=== PATIENT | male | born 1960 | race American Indian/Alaskan Native ===

== ENCOUNTER 2020-12-09 15:15 | Emergency (ER) | payer SELFPAY ==
--- NOTE | 2020-12-09 17:29 | Emergency Department Report ---
ED Back Pain/Injury HPI - General Chief Complaint: Back Pain/Injury Stated Complaint: BACK PAIN Time Seen by Provider: 12/09/20 17:29 Source: patient Limitations: No Limitations - History of Present Illness Initial Comments: 59-year-old male with a past medical history of diabetes,and hypertension presents to the ER today with complaints of left lower back pain. Patient states that his back pain started about 4 days ago. . He states that the back pain has been constant and radiates down his left leg. He states that he does do some pushing at work but nothing out of the ordinary recently and he denies any other apparent injury. He states that the pain is worse with movement and ambulation. He denies any associated abdominal pain, chest pain, shortness of breath, bowel or bladder incontinence, urinary retention or constipation, lower extremity numbness or tingling. He states that he has not taken anything for the pain. Patient states that he had a lumbar fusion surgery, in 2007 and in 2013 or . He states that since his surgery he has not had any pain to his lower back. MD Complaint: back pain -: days(s) (4) - Related Data Previous Rx's Medication Instructions Recorded Last Taken Type Ibuprofen [Motrin] 600 mg PO Q8H PRN #30 tablet 12/09/20 Unknown Rx Tramadol HCl/Acetaminophen 1 each PO Q4HR #12 tablet 12/09/20 Unknown Rx [Ultracet Tablet] methOCARBAMOL [Robaxin TAB] 750 mg PO Q8H PRN #30 tablet 12/09/20 Unknown Rx Allergies Allergy/AdvReac Type Severity Reaction Status Date / Time No Known Allergies Allergy Unverified 12/09/20 17:30 ED Review of Systems ROS: Stated complaint: BACK PAIN Other details as noted in HPI Comment: All other systems reviewed and negative Constitutional: denies: chills, fever, malaise Eyes: denies: eye pain, eye discharge, vision change ENT: denies: ear pain, throat pain, dental pain, hearing loss, epistaxis, congestion Respiratory: denies: cough, shortness of breath, SOB with exertion, SOB at rest, wheezing Cardiovascular: denies: chest pain, palpitations, dyspnea on exertion, orthopnea, edema, syncope, paroxysmal nocturnal dyspnea Gastrointestinal: denies: abdominal pain, nausea, vomiting, diarrhea, constipation, hematemesis, melena, hematochezia Genitourinary: denies: urgency, dysuria, frequency, hematuria, discharge, testicular pain, testicular mass Musculoskeletal: back pain. denies: joint swelling, arthralgia, myalgia Skin: denies: rash, lesions, change in color, change in hair/nails, pruritus Neurological: denies: headache, weakness, numbness, paresthesias, confusion, abnormal gait, vertigo Psychiatric: denies: anxiety, depression, auditory hallucinations, visual hallucinations, homicidal thoughts, suicidal thoughts Hematological/Lymphatic: denies: easy bleeding, easy bruising ED Past Medical Hx - Medications Home Medications: Home Medications Medication Instructions Recorded Confirmed Last Taken Type Ibuprofen [Motrin] 600 mg PO Q8H PRN #30 tablet 12/09/20 Unknown Rx Tramadol HCl/Acetaminophen 1 each PO Q4HR #12 tablet 12/09/20 Unknown Rx [Ultracet Tablet] methOCARBAMOL [Robaxin TAB] 750 mg PO Q8H PRN #30 tablet 12/09/20 Unknown Rx ED Physical Exam - General Limitations: No Limitations General appearance: alert, in no apparent distress - Head Head exam: Present: atraumatic, normocephalic, normal inspection - Eye Eye exam: Present: normal appearance, PERRL, EOMI Pupils: Present: normal accommodation - Neck Neck exam: Present: normal inspection, full ROM - Respiratory Respiratory exam: Present: normal lung sounds bilaterally. Absent: respiratory distress - Cardiovascular Cardiovascular Exam: Present: regular rate, normal rhythm, normal heart sounds - GI/Abdominal GI/Abdominal exam: Present: soft. Absent: distended, tenderness, guarding - Extremities Exam Extremities exam: Present: normal inspection, full ROM. Absent: normal capillary refill, pedal edema, calf tenderness - Back Exam Back exam: Present: normal inspection, full ROM, paraspinal tenderness (Left lower lumbar area). Absent: CVA tenderness (R), CVA tenderness (L), vertebral tenderness - Neurological Exam Neurological exam: Present: alert, oriented X3, CN II-XII intact, normal gait, reflexes normal. Absent: motor sensory deficit - Psychiatric Psychiatric exam: Present: normal affect, normal mood - Skin Skin exam: Present: intact ED Course Vital Signs 12/09/20 17:22 Temperature 99.2 F Pulse Rate 101 H Respiratory 20 Rate Blood Pressure 150/106 O2 Sat by Pulse 98 Oximetry ED Medical Decision Making - Medical Decision Making The patient presented with low back pain. The patient is resting comfortably and, is alert, talkative, interactive and in no distress. The patient is neurologically intact and is ambulatory in the ED. tThe patient has no fever, no bowel or bladder incontinence, no saddle anesthesia and is otherwise alert and well-appearing. Urinalysis shows nothing acute. His history, physical examination and diagnostic testing does not suggest the presence of acute spinal epidural abscess, acute epidural bleed, cauda equina syndrome, abdominal/thoracic aortic aneurysm, aortic dissection or other acute process requiring further testing, treatment or consultation in the emergency department. Patient blood pressure noted to be elevated at triage but he admits that he has not taken his blood pressure medication today and currently has no symptoms related to hypertension. Discussed urinalysis results, suspected diagnosis and treatment plan with patient. Patient given referral to local orthospine specialist as well as primary care doctor for continued care of his back pain as he may need outpatient MRI. He expressed understanding of instructions and agree with plan. The patient condition is stable and appropriate for discharge. The patient will pursue further outpatient evaluation with the primary care physician or other designated or consulting physician as indicated in the discharge instructions. Critical care attestation.: If time is entered above; I have spent that time in minutes in the direct care of this critically ill patient, excluding procedure time. ED Disposition Clinical Impression: Low back pain, Lumbar radiculopathy Disposition: DC- TO HOME OR SELFCARE Is pt being admited?: No Does the pt Need Aspirin: No Condition: Stable Instructions: Radicular Pain, Acute Back Pain, Adult Additional Instructions: I recommend that you take the pain medications as prescribed. I recommend follow up wth PCP and also solar energy sales specialist listed on your discharge instructions. Return to ED if worse. Prescriptions: Ibuprofen [Motrin] 600 mg PO Q8H PRN #30 tablet PRN Reason: Pain methOCARBAMOL [Robaxin TAB] 750 mg PO Q8H PRN #30 tablet PRN Reason: Spasms Tramadol HCl/Acetaminophen [Ultracet Tablet] 1 each PO Q4HR #12 tablet Referrals: CLARISSA KHAN MD [Primary Care Provider] - 3-5 Days RITA CANELA MD [Staff Physician] - 3-5 Days [facility] [Provider Group] - 3-5 Days ([facility]th[facility]ine Specialist They have [place] location ) Forms: Work/School Release Form(ED) Time of Disposition: 18:42
[2020-12-09 17:58] LABS: Bilirubin,Urine NEG (Negative); Blood,Urine NEG (Negative); Color,Urine Yellow (Yellow); Mucus,Urine FEW /HPF; Protein,Urine <15 mg/dL mg/dL (Negative); Urobilinogen,Urine < 2.0 mg/dL (<2.0); WBC,Urine < 1.0 /HPF (0.0-6.0)
[2020-12-09 18:01] VITALS: BP 150/106
== END 2020-12-09 19:05 | disposition home or self-care (01) ==
LOC: ED 15:15
DX: M54.16 Radiculopathy, lumbar region (principal); Z79.899 Other long term (current) drug therapy
CPT/HCPCS: 81001; 99283

== ENCOUNTER 2021-03-29 21:59 | Inpatient (IN) | payer OTHER ==
--- NOTE | 2021-03-30 | Event Note ---
ED Screening Note Date of service: 03/29/21 Time: 23:58 ED Screening Note: Patient is a 60-year-old -L[place] male with a history of [id number] diabetes and diabetic neuropathy who presents to the ED with complaint of acute onset painful swollen ulcerated wound on distal right great toe with purulent discharge for the last 3 weeks. Patient states that he did not realize that he had an ulcer on the plantar aspect of the right great toe but so ulceration and try to clean it at home and remove skin but in the last 1 week the swelling, the pain and the redness of the right great toe and right foot have worsened. Patient states that he is unable to bear weight on the right foot because of persistent pain. Patient also complains of chills, nausea and generalized weakness. Patient denies dizziness, traumatic injury, fever, vomiting, numbness and tingling or weakness of lower extremities bilaterally, fall, low back pain, chest pain or shortness of breath. This initial assessment/diagnostic orders/clinical plan/treatment(s) is/are subject to change based on patients health status, clinical progression and re- assessment by fellow clinical providers in the ED. Further treatment and workup at subsequent clinical providers discretion. Patient/guardian urged not to elope from the ED as their condition may be serious if not clinically assessed and managed. Initial orders include: CBC, CMP, lactic acid, blood culture, right foot x-ray
--- NOTE | 2021-03-30 00:27 | XRay Report ---
Right foot 3 views INDICATION: Cellulitis FINDINGS: There is diffuse soft tissue swelling within the great toe. Degenerative changes seen in th e MTP joint. There may be some soft tissue gas is now with. No definite destructive changes seen. IMPRESSION: Diffuse soft tissue swelling in the big toe. No bony destructive change is seen however follow-up x-r ay or MRI if there is high clinical concern Signer Name: Anthony Polanco MD Signed: 03/30/2021 12:22 AM Workstation Name: [email or web address]
[2021-03-30 00:45] LABS: Basophils # (Auto) 0.1 K/mm3 (0.0-0.1); Basophils % (Auto) 0.9 % (0.0-1.8); Eosinophils # (Auto) 0.1 K/mm3 (0.0-0.4); Eosinophils % (Auto) 0.9 % (0.0-4.3); Hematocrit 37.3 % (35.5-45.6); Hemoglobin 12.8 gm/dl (11.8-15.2); Lymphocytes # (Auto) 0.8 K/mm3 (1.2-5.4); Mean Corpuscular HGB Conc 34 % (32-34); Mean Corpuscular Volume 71 fl (84-94); Monocytes # (Auto) 0.6 K/mm3 (0.0-0.8); Monocytes % (Auto) 8.2 % (0.0-7.3); Platelet Count 170 K/mm3 (140-440); Red Blood Count 5.26 M/mm3 (3.65-5.03); Red Cell Distribution Width 13.4 % (13.2-15.2)
[2021-03-30 00:47] LABS: Alanine Aminotransferase 32 units/L (7-56); BUN/Creatinine Ratio 12; Blood Urea Nitrogen 12 mg/dL (9-20); Calcium 9.2 mg/dL (8.4-10.2); Hemolysis Index 4
[2021-03-30] MEDS ORDERED: SODIUM CHLORIDE 0.9% 1000 ML 1,000 ML IV ONE ×2 (02:31→08:42)
[2021-03-30] MEDS ORDERED: CLINDAMYCIN 600 MG/50 mL 600 MG/50 ML BAG IV ONE (02:31)
[2021-03-30] MEDS ORDERED: MORPHINE 4 MG/1 ML INJ IV ONE (02:31)
[2021-03-30] MEDS ORDERED: ONDANSETRON 4 MG/2 ML INJ IV ONE (02:31)
--- NOTE | 2021-03-30 02:40 | Emergency Department Report ---
ED Extremity Problem HPI - General Chief complaint: Extremity Injury, Lower Stated complaint: TOE INFECTION Time Seen by Provider: 03/30/21 02:25 Source: patient Mode of arrival: Ambulatory Limitations: No Limitations - History of Present Illness Initial comments: Patient is a 69-year-old F [place] male who is presenting with 3 weeks of progressively worsening right great toe pain. Has some swelling and now some bleeding from the webspace. States he was unaware that the ulcer has started to form. States his blood glucose levels have been running slightly high as well. Denies nausea vomiting diarrhea fevers cough cold or congestion. Severity scale (0 -10): 10 - Related Data Previous Rx's Medication Instructions Recorded Last Taken Type Ibuprofen [Motrin] 600 mg PO Q8H PRN #30 tablet 12/09/20 Unknown Rx Tramadol HCl/Acetaminophen 1 each PO Q4HR #12 tablet 12/09/20 Unknown Rx [Ultracet Tablet] methOCARBAMOL [Robaxin TAB] 750 mg PO Q8H PRN #30 tablet 12/09/20 Unknown Rx Allergies Allergy/AdvReac Type Severity Reaction Status Date / Time No Known Allergies Allergy Verified 03/30/21 02:33 ED Review of Systems ROS: Stated complaint: TOE INFECTION Other details as noted in HPI Comment: All other systems reviewed and negative ED Past Medical Hx - Past Medical History Previous Medical History?: Yes Additional medical history: Back pain with back surgery - Surgical History Past Surgical History?: Yes Additional Surgical History: Back - Social History Smoking Status: Never Smoker Substance Use Type: None - Medications Home Medications: Home Medications Medication Instructions Recorded Confirmed Last Taken Type Ibuprofen [Motrin] 600 mg PO Q8H PRN #30 tablet 12/09/20 Unknown Rx Tramadol HCl/Acetaminophen 1 each PO Q4HR #12 tablet 12/09/20 Unknown Rx [Ultracet Tablet] methOCARBAMOL [Robaxin TAB] 750 mg PO Q8H PRN #30 tablet 12/09/20 Unknown Rx ED Physical Exam - General Limitations: No Limitations General appearance: alert, in no apparent distress - Head Head exam: Present: atraumatic, normocephalic - Eye Eye exam: Present: normal appearance - ENT ENT exam: Present: mucous membranes moist - Neck Neck exam: Present: normal inspection - Respiratory Respiratory exam: Present: normal lung sounds bilaterally. Absent: respiratory distress - Cardiovascular Cardiovascular Exam: Present: regular rate, normal rhythm. Absent: systolic murmur, diastolic murmur, rubs, gallop - GI/Abdominal GI/Abdominal exam: Present: soft, normal bowel sounds. Absent: distended, tenderness, guarding, rebound - Rectal Rectal exam: Present: deferred - Extremities Exam Extremities exam: Present: normal inspection - Expanded Lower Extremity Exam Right Foot/Toe exam: Present: tenderness, swelling (Right great toe shows a significant amount of swelling and bogginess. Yellowing of the skin. Some dried blood in the webspace.), erythema. Absent: normal inspection - Back Exam Back exam: Present: normal inspection - Neurological Exam Neurological exam: Present: alert, oriented X3 - Psychiatric Psychiatric exam: Present: normal affect, normal mood - Skin Skin exam: Present: warm, dry, intact, normal color. Absent: rash ED Course Vital Signs 03/29/21 23:41 Temperature 99.4 F Pulse Rate 86 Respiratory 16 Rate Blood Pressure 154/86 [Right] O2 Sat by Pulse 98 Oximetry ED Medical Decision Making - Lab Data Result diagrams: 03/29/21 23:59 03/29/21 23:59 Lab Results 03/29/21 03/29/21 03/29/21 Range/Units 23:59 23:59 23:59 WBC 7.6 (4.5-11.0) K/mm3 RBC 5.26 H (3.65-5.03) M/mm3 Hgb 12.8 (11.8-15.2) gm/dl Hct 37.3 (35.5-45.6) % MCV 71 L (84-94) fl MCH 24 L (28-32) pg MCHC 34 (32-34) % RDW 13.4 (13.2-15.2) % Plt Count 170 (140-440) K/mm3 Lymph % (Auto) 10.0 L (13.4-35.0) % [place] % (Auto) 8.2 H (0.0-7.3) % Eos % (Auto) 0.9 (0.0-4.3) % Baso % (Auto) 0.9 (0.0-1.8) % Lymph # (Auto) 0.8 L (1.2-5.4) K/mm3 [place] # (Auto) 0.6 (0.0-0.8) K/mm3 Eos # (Auto) 0.1 (0.0-0.4) K/mm3 Baso # (Auto) 0.1 (0.0-0.1) K/mm3 Seg Neutrophils % 80.0 H (40.0-70.0) % Seg Neutrophils # 6.1 (1.8-7.7) K/mm3 Sodium 132 L (137-145) mmol/L Potassium 3.9 (3.6-5.0) mmol/L Chloride 94.6 L (98-107) mmol/L Carbon Dioxide 25 (22-30) mmol/L Anion Gap 16 mmol/L BUN 12 (9-20) mg/dL Creatinine 1.0 (0.8-1.3) mg/dL Estimated GFR > 60 ml/min BUN/Creatinine Ratio 12 % Glucose 345 H (75-100) mg/dL Lactic Acid 1.50 (0.7-2.0) mmol/L Calcium 9.2 (8.4-10.2) mg/dL Total Bilirubin 1.30 H (0.1-1.2) mg/dL AST 40 (5-40) units/L ALT 32 (7-56) units/L Alkaline Phosphatase 198 H (35-129) units/L Total Protein 7.8 (6.3-8.2) g/dL Albumin 4.0 (3.9-5) g/dL Albumin/Globulin Ratio 1.1 % - Radiology Data [facility] [address] [place] [address] XRay Report Signed Patient: REGINO NDIAYE MR#: [id number] : 1960 Acct:[id number] Age/Sex: 60 / M ADM Date: 03/29/21 Loc: ED Attending Dr: Ordering Physician: OSCAR DAILEY Date of Service: 03/29/21 Procedure(s): XR foot 3+V RT Accession Number(s): [id number] cc: OSCAR DAILEY Fluoro Time In Minutes: Right foot 3 views INDICATION: Cellulitis FINDINGS: There is diffuse soft tissue swelling within the great toe. Degenerative changes seen in the MTP joint. There may be some soft tissue gas is now with. No definite destructive changes seen. IMPRESSION: Diffuse soft tissue swelling in the big toe. No bony destructive change is seen however follow-up x-ray or MRI if there is high clinical concern Signer Name: Anthony Polanco MD Signed: 03/30/2021 12:22 AM Workstation Name: [id number] - Medical Decision Making Patient is a 60-year-old F [place] male who is presenting with swelling to the right great toe. Was told appears to be in the early stages of gangrene. Placement patient's glucose is also elevated but not in DKA. Patient started on IV fluids as well as clindamycin and Vanco will be admitted to the hospitalist service. The patient there is a chance that he may need a toe amputation. Critical care attestation.: If time is entered above; I have spent that time in minutes in the direct care of this critically ill patient, excluding procedure time. ED Disposition Clinical Impression: Cellulitis of toe of right foot, Hyperglycemia Disposition: ADMITTED INPATIENT Is pt being admited?: Yes Does the pt Need Aspirin: No Condition: Stable Time of Disposition: 03:02
[2021-03-30] MEDS ORDERED: VANCOMYCIN 1,750 MG in SODIUM CHLORIDE 0.9% 500 ML 500 ML IV ONE (02:45)
[2021-03-30] MEDS ORDERED: VANCOMYCIN PHARMACY TO DOSE IV SCH (03:00)
[2021-03-30] MEDS ORDERED: DEXTROSE 50% IN WATER (25GM) 50 ML SYRINGE IV PRN (05:00)
[2021-03-30] MEDS ORDERED: ALBUTEROL 2.5 MG/3 ML NEBU IH PRN (05:00)
[2021-03-30] MEDS ORDERED: IBUPROFEN 600 MG TAB PO PRN (05:03)
--- NOTE | 2021-03-30 05:09 | History and Physical Report ---
History of Present Illness Date of examination: 03/30/21 Date of admission: 03/30/21 Chief complaint: Right great toe infection cellulitis/ History of present illness: 60 years old male with history [id number] diabetes and diabetic neuropathy who presents to the ED with complaint of acute onset painful swollen ulcerated wound on distal right great toe with purulent discharge for the last 3 weeks..patient complained of some swelling and now some bleeding from the webspace. States he was unaware that the ulcer has started to form. States his blood glucose levels have been running slightly high as well. Denies nausea vomiting diarrhea fevers cough cold or congestion. In the emergency room patient is found to have cellulitis of the right great t oe. Also patient blood glucose is 345. Will consult vascular surgeon for evaluation Med rec is done. Advance discharge process is initiated Past History Past Medical History: diabetes, other (Diabetic neuropathy) Medications and Allergies Allergies Allergy/AdvReac Type Severity Reaction Status Date / Time No Known Allergies Allergy Verified 03/30/21 02:33 Home Medications Medication Instructions Recorded Confirmed Last Taken Type Ibuprofen [Motrin] 600 mg PO Q8H PRN #30 tablet 12/09/20 Unknown Rx Tramadol HCl/Acetaminophen 1 each PO Q4HR #12 tablet 12/09/20 Unknown Rx [Ultracet Tablet] methOCARBAMOL [Robaxin TAB] 750 mg PO Q8H PRN #30 tablet 12/09/20 Unknown Rx Active Meds: Active Medications Acetaminophen (Acetaminophen 325 Mg Tab) 650 mg PO Q4H PRN PRN Reason: Pain MILD(1-3)/Fever >100.5/LUNA Albuterol (Albuterol 2.5 Mg/3 Ml Nebu) 2.5 mg IH Q4HRT PRN PRN Reason: Shortness Of Breath Dextrose (Dextrose 50% In Water (25gm) 50 Ml Syringe) 50 ml IV Q30MIN PRN; Protocol PRN Reason: Hypoglycemia Famotidine (Famotidine 20 Mg Tab) 20 mg PO BID SIRENA Heparin Sodium (Porcine) (Heparin 5,000 Unit/1 Ml Vial) 5,000 unit SUB-Q Q8HR SIRENA Hydromorphone HCl (Hydromorphone 1 Mg/1 Ml Inj) 0.5 mg IV Q3H PRN PRN Reason: Pain , Severe (7-10) Piperacillin Sod/Tazobactam Sod (Zosyn/Ns 4.5gm/100ml) 4.5 gm in 100 mls @ 200 mls/hr IV Q8H SIRENA; Protocol Vancomycin HCl (Vancomycin/Ns 1 Gm/250 Ml) 1 gm in 250 mls @ 166.667 mls/hr IV Q12H SIRENA; Protocol Ibuprofen (Ibuprofen 600 Mg Tab) 600 mg PO Q8H PRN PRN Reason: PAIN Insulin Human Lispro (Insulin Lispro 100 Unit/Ml) 0 unit SUB-Q ACHS SIRENA; Protocol Methocarbamol (Methocarbamol 750 Mg Tab) 750 mg PO Q8H PRN PRN Reason: Spasms Ondansetron HCl (Ondansetron 4 Mg/2 Ml Inj) 4 mg IV Q8H PRN PRN Reason: Nausea And Vomiting Oxycodone/Acetaminophen (Oxycodone /Acetaminophen 5-325mg Tab) 1 tab PO Q6H PRN PRN Reason: Pain, Moderate (4-6) Sodium Chloride (Sodium Chloride 0.9% 10 Ml Flush Syringe) 10 ml IV BID SIRENA Sodium Chloride (Sodium Chloride 0.9% 10 Ml Flush Syringe) 10 ml IV PRN PRN PRN Reason: LINE FLUSH Review of Systems All systems: negative Musculoskeletal: other (Right great toe and right foot ulcer cellulitis) Exam - Constitutional Vitals: Temp Pulse Resp BP Pulse Ox 99.4 F 86 16 154/86 98 03/29/21 23:41 03/29/21 23:41 03/29/21 23:41 03/29/21 23:41 03/29/21 23:41 General appearance: Present: no acute distress, well-nourished - EENT Eyes: Present: PERRL ENT: hearing intact, clear oral mucosa - Neck Neck: Present: supple, normal ROM - Respiratory Respiratory effort: normal Respiratory: bilateral: CTA - Cardiovascular Heart Sounds: Present: S1 & S2. Absent: rub, click - Extremities Extremities: pulses symmetrical, No edema Peripheral Pulses: within normal limits - Abdominal General gastrointestinal: Present: soft, non-tender, non-distended, normal bowel sounds Male genitourinary: Present: normal - Integumentary Integumentary: Present: clear, warm, dry - Musculoskeletal Musculoskeletal: strength equal bilaterally, other (Cellulitis onset of the right foot and right great toe) - Psychiatric Psychiatric: appropriate mood/affect, intact judgment & insight - Neurologic Neurologic: CNII-XII intact, moves all extremities Results - Labs CBC & Chem 7: 03/29/21 23:59 03/29/21 23:59 Labs: Laboratory Last Values WBC 7.6 K/mm3 (4.5-11.0) 03/29/21 23:59 RBC 5.26 M/mm3 (3.65-5.03) H 03/29/21 23:59 Hgb 12.8 gm/dl (11.8-15.2) 03/29/21 23:59 Hct 37.3 % (35.5-45.6) 03/29/21 23:59 MCV 71 fl (84-94) L 03/29/21 23:59 MCH 24 pg (28-32) L 03/29/21 23:59 MCHC 34 % (32-34) 03/29/21 23:59 RDW 13.4 % (13.2-15.2) 03/29/21 23:59 Plt Count 170 K/mm3 (140-440) 03/29/21 23:59 Lymph % (Auto) 10.0 % (13.4-35.0) L 03/29/21 23:59 [place] % (Auto) 8.2 % (0.0-7.3) H 03/29/21 23:59 Eos % (Auto) 0.9 % (0.0-4.3) 03/29/21 23:59 Baso % (Auto) 0.9 % (0.0-1.8) 03/29/21 23:59 Lymph # (Auto) 0.8 K/mm3 (1.2-5.4) L 03/29/21 23:59 [place] # (Auto) 0.6 K/mm3 (0.0-0.8) 03/29/21 23:59 Eos # (Auto) 0.1 K/mm3 (0.0-0.4) 03/29/21 23:59 Baso # (Auto) 0.1 K/mm3 (0.0-0.1) 03/29/21 23:59 Seg Neutrophils % 80.0 % (40.0-70.0) H 03/29/21 23:59 Seg Neutrophils # 6.1 K/mm3 (1.8-7.7) 03/29/21 23:59 Sodium 132 mmol/L (137-145) L 03/29/21 23:59 Potassium 3.9 mmol/L (3.6-5.0) 03/29/21 23:59 Chloride 94.6 mmol/L (98-107) L 03/29/21 23:59 Carbon Dioxide 25 mmol/L (22-30) 03/29/21 23:59 Anion Gap 16 mmol/L 03/29/21 23:59 BUN 12 mg/dL (9-20) 03/29/21 23:59 Creatinine 1.0 mg/dL (0.8-1.3) 03/29/21 23:59 Estimated GFR > 60 ml/min 03/29/21 23:59 BUN/Creatinine Ratio 12 % 03/29/21 23:59 Glucose 345 mg/dL (75-100) H 03/29/21 23:59 Lactic Acid 1.50 mmol/L (0.7-2.0) 03/29/21 23:59 Calcium 9.2 mg/dL (8.4-10.2) 03/29/21 23:59 Total Bilirubin 1.30 mg/dL (0.1-1.2) H 03/29/21 23:59 AST 40 units/L (5-40) 03/29/21 23:59 ALT 32 units/L (7-56) 03/29/21 23:59 Alkaline Phosphatase 198 units/L (35-129) H 03/29/21 23:59 Total Protein 7.8 g/dL (6.3-8.2) 03/29/21 23:59 Albumin 4.0 g/dL (3.9-5) 03/29/21 23:59 Albumin/Globulin Ratio 1.1 % 03/29/21 23:59 Assessment and Plan VTE prophylaxis?: Chemical Plan of care discussed with patient/family: Yes - Patient Problems (1) Cellulitis of toe of right foot Status: Acute Plan to address problem: Admit the patient to the medical floor. Put the patient on diabetic diet. Vancomycin 1 g IV every 12 hours. Zosyn 4.5 g IV every 8 hours. Reconsult the wound care evaluation. We do the blood culture wound culture. We also consult vascular surgery Dr. Aguila to see the patient for further evaluation and treatment as per ER doctor recommendation (2) Diabetes Status: Acute Plan to address problem: We will put the patient on 1800 kcal ADA diet. Humalog sliding scale high dose with Accu-Chek before meals and at bedtime. Diabetic education (3) Hyperglycemia Status: Acute Plan to address problem: We will put the patient on 1800 kcal ADA diet. Humalog sliding scale high dose with Accu-Chek before meals and at bedtime. Diabetic education (4) DVT prophylaxis Status: Acute Plan to address problem: Heparin 5000 units subcu every 8 hours for DVT prophylaxis. Pepcid 20 mg p.o. twice daily for GI prophylaxis. Patient is a full code
[2021-03-30] MEDS ORDERED: VANCOMYCIN/NS 1 GM/250 ML 1 GM/250 ML BAG IV SCH (06:00)
[2021-03-30] MEDS ORDERED: PIPERACIL/TAZOBACTA 4.5/NS 100 4.5 GM/100 ML VIAL IV SCH (06:00)
[2021-03-30] MEDS: AMPICILLIN/SULBACTA 3GM/100ML 3 GM/100 ML BAG IV SCH ×4 (07:45→23:36)
[2021-03-30] MEDS: HEPARIN 5,000 UNIT/1 ML VIAL SUB-Q SCH ×4 (07:58→23:37)
[2021-03-30] MEDS: INSULIN LISPRO 100 UNIT/ML SUB-Q SCH ×4 (08:23→17:00)
[2021-03-30] MEDS: FAMOTIDINE 20 MG TAB PO SCH ×2 (10:00→23:43)
--- NOTE | 2021-03-30 12:00 | Event Note ---
Date: 03/30/21 Patient with cellulitis, ulcer right big toe. He is also diabetic. I have seen and examined him. he takes Insulin at home. I discussed with Dr. Aguila. He recommends consult Dr. Villegas, Surgeon.
--- NOTE | 2021-03-30 12:39 | Consultation ---
History of Present Illness - Reason for Consult Consult date: 03/30/21 Right first toe infection - History of Present Illness Patient with a history of insulin-dependent diabetes who presents with a 3-week history of worsening pain to his right first toe. The patient is developed ulceration and has been treating it at home with bandaging however, the first toe continued to swell. Additionally, the patient has dusky discoloration of toes 2 through 5 on the right foot as well. This extends proximally to the metatarsal head for all 5 toes. I the patient's foot is warm however a componen t of this is likely secondary to infection. His pulses are faintly palpable. The patient does have edema of his foot. Contralateral foot is cooler with more strongly palpable pulses. Patient resting comfortably in bed. Not complaining of any pain or drainage at this time. Past History Past Medical History: diabetes, other (Diabetic neuropathy) Medications and Allergies Allergies Allergy/AdvReac Type Severity Reaction Status Date / Time No Known Allergies Allergy Verified 03/30/21 02:33 Home Medications Medication Instructions Recorded Confirmed Last Taken Type Ibuprofen [Motrin] 600 mg PO Q8H PRN #30 tablet 12/09/20 Unknown Rx Tramadol HCl/Acetaminophen 1 each PO Q4HR #12 tablet 12/09/20 Unknown Rx [Ultracet Tablet] methOCARBAMOL [Robaxin TAB] 750 mg PO Q8H PRN #30 tablet 12/09/20 Unknown Rx Active Meds: Active Medications Acetaminophen (Acetaminophen 325 Mg Tab) 650 mg PO Q4H PRN PRN Reason: Pain MILD(1-3)/Fever >100.5/LUNA Albuterol (Albuterol 2.5 Mg/3 Ml Nebu) 2.5 mg IH Q4HRT PRN PRN Reason: Shortness Of Breath Dextrose (Dextrose 50% In Water (25gm) 50 Ml Syringe) 50 ml IV Q30MIN PRN; Protocol PRN Reason: Hypoglycemia Famotidine (Famotidine 20 Mg Tab) 20 mg PO BID [facility] Last Admin: 03/30/21 10:00 Dose: 20 mg Documented by: Heparin Sodium (Porcine) (Heparin 5,000 Unit/1 Ml Vial) 5,000 unit SUB-Q Q8HR [facility] Last Admin: 03/30/21 07:58 Dose: Not Given Documented by: Hydromorphone HCl (Hydromorphone 1 Mg/1 Ml Inj) 0.5 mg IV Q3H PRN PRN Reason: Pain , Severe (7-10) Vancomycin HCl 1,500 mg/ (Sodium Chloride) 530 mls @ 333.333 mls/hr IV Q12H [facility] Ampicillin Sodium/Sulbactam Sodium (Unasyn/Ns 3 Gm/100 Ml) 3 gm in 100 mls @ 200 mls/hr IV Q6H [facility]; Protocol Last Admin: 03/30/21 07:45 Dose: 200 mls/hr Documented by: Ibuprofen (Ibuprofen 600 Mg Tab) 600 mg PO Q8H PRN PRN Reason: Pain, Mild (1-3) Insulin Human Lispro (Insulin Lispro 100 Unit/Ml) 0 unit SUB-Q ACHS [facility]; Protocol Last Admin: 03/30/21 11:15 Dose: Not Given Documented by: Methocarbamol (Methocarbamol 750 Mg Tab) 750 mg PO Q8H PRN PRN Reason: Spasms Ondansetron HCl (Ondansetron 4 Mg/2 Ml Inj) 4 mg IV Q8H PRN PRN Reason: Nausea And Vomiting Oxycodone/Acetaminophen (Oxycodone /Acetaminophen 5-325mg Tab) 1 tab PO Q6H PRN PRN Reason: Pain, Moderate (4-6) Sodium Chloride (Sodium Chloride 0.9% 10 Ml Flush Syringe) 10 ml IV BID [facility] Last Admin: 03/30/21 11:14 Dose: Not Given Documented by: Sodium Chloride (Sodium Chloride 0.9% 10 Ml Flush Syringe) 10 ml IV PRN PRN PRN Reason: LINE FLUSH Review of Systems All systems: negative Exam - Constitutional Vitals: Temp Pulse Resp BP Pulse Ox 99.4 F 88 15 121/65 97 03/30/21 08:11 03/30/21 11:45 03/30/21 11:45 03/30/21 11:45 03/30/21 11:45 General appearance: Present: no acute distress - EENT Eyes: Present: EOM intact ENT: hearing intact - Neck Neck: Present: supple, normal ROM - Respiratory Respiratory effort: normal - Extremities Extremities: abnormal Extremity abnormal: edema (Per HPI) Peripheral Pulses: abnormal - Abdominal General gastrointestinal: Present: deferred Male genitourinary: Present: deferred - Rectal Rectal Exam: deferred - Psychiatric Psychiatric: appropriate mood/affect, cooperative Results - Labs CBC & Chem 7: 03/29/21 23:59 03/29/21 23:59 Labs: Abnormal lab results 03/29/21 03/29/21 03/30/21 Range/Units 23:59 23:59 08:17 RBC 5.26 H (3.65-5.03) M/mm3 MCV 71 L (84-94) fl MCH 24 L (28-32) pg Lymph % (Auto) 10.0 L (13.4-35.0) % Eagle % (Auto) 8.2 H (0.0-7.3) % Lymph # (Auto) 0.8 L (1.2-5.4) K/mm3 Seg Neutrophils % 80.0 H (40.0-70.0) % Sodium 132 L (137-145) mmol/L Chloride 94.6 L (98-107) mmol/L Glucose 345 H (75-100) mg/dL POC Glucose 321 H (70-105) mg/dL Total Bilirubin 1.30 H (0.1-1.2) mg/dL Alkaline Phosphatase 198 H (35-129) units/L 03/30/21 Range/Units 10:00 RBC (3.65-5.03) M/mm3 MCV (84-94) fl MCH (28-32) pg Lymph % (Auto) (13.4-35.0) % [place] % (Auto) (0.0-7.3) % Lymph # (Auto) (1.2-5.4) K/mm3 Seg Neutrophils % (40.0-70.0) % Sodium (137-145) mmol/L Chloride (98-107) mmol/L Glucose (75-100) mg/dL POC Glucose 221 H (70-105) mg/dL Total Bilirubin (0.1-1.2) mg/dL Alkaline Phosphatase (35-129) units/L Assessment and Plan Patient will need antibiotic therapy and may require infectious disease consult for long-term therapy. I the patient will need Dr. Villegas consulted for wound care and likely toe amputation. I the patient has a history of bleeding from this area as well as palpable pedal pulses. The pulses are somewhat fainter than the contralateral side although a component of this is likely secondary to the edema from infection. We will confirm that the patient has adequate arterial inflow to heal surgical intervention with arterial duplex.
--- NOTE | 2021-03-30 14:51 | Event Note ---
Date: 03/30/[address] Villegas. I am external relations manager for [employer] today. Went to see patient but he went for imaging studies and is not in room. No admission photos [facility] the [facility]. Will see tomorrow. If amputation is recommended, will discuss with Dr. Villegas when he returns on Thursday.
--- NOTE | 2021-03-30 16:26 | Vascular Lab Report ---
DUPLEX DOPPLER LOWER EXTREMITY ARTERIAL, BILATERAL INDICATION / CLINICAL INFORMATION: Right first toe gangrene. TECHNIQUE: Arterial duplex examination of both lower extremities performed using B-mode, color flow and spectral Doppler assessment. FINDINGS: RIGHT: - Atherosclerotic Plaque: Moderate. - Elevated Velocity (>200 cm/s): None. - Abnormal Waveform: None. Normal triphasic waveforms seen throughout the right lower extremity. LEFT: - Atherosclerotic Plaque: Moderate. - Elevated Velocity (>200 cm/s): Increased in the left dorsalis pedis artery, measuring 462.7 cm. - Abnormal Waveform: Dampened monophasic waveform within the left dorsalis pedis artery. There is hig h-grade stenosis within the left dorsalis pedis artery. Otherwise, normal triphasic waveforms are see n. ADDITIONAL FINDINGS: None. IMPRESSION: 1. 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 Otherwise, no significant stenosis in the l eft lower extremity. 2. No significant stenosis of the right lower extremity arterial system. Doppler Waveform: - Triphasic is normal. - Biphasic is abnormal if clear transition from triphasic signal along vascular tree. - Monophasic is abnormal. Signer Name: Mario Castillo MD Signed: 03/30/2021 4:22 PM Workstation Name: [id number]
[2021-03-30] MEDS: VANCOMYCIN 1,500 MG in SODIUM CHLORIDE 0.9% 500 ML 500 ML IV SCH (18:19)
[2021-03-31] MEDS: INSULIN LISPRO 100 UNIT/ML SUB-Q SCH ×8 (00:01→22:45)
[2021-03-31] MEDS: INSULIN GLARGINE 100 UNITS/ML SUB-Q SCH ×2 (00:04→22:46)
[2021-03-31] MEDS: AMPICILLIN/SULBACTA 3GM/100ML 3 GM/100 ML BAG IV SCH ×4 (01:00→22:43)
[2021-03-31] MEDS: HYDROmorphone 1 MG/1 ML INJ IV PRN ×2 (03:49→13:39)
[2021-03-31 04:09] LABS: Basophils % (Auto) 0.9 % (0.0-1.8); Eosinophils # (Auto) 0.2 K/mm3 (0.0-0.4); Eosinophils % (Auto) 3.4 % (0.0-4.3); Hematocrit 35.8 % (35.5-45.6); Hemoglobin 11.7 gm/dl (11.8-15.2); Lymphocytes # (Auto) 0.9 K/mm3 (1.2-5.4); Lymphocytes % (Auto) 16.1 % (13.4-35.0); Mean Corpuscular HGB Conc 33 % (32-34); Mean Corpuscular Volume 71 fl (84-94); Monocytes # (Auto) 0.6 K/mm3 (0.0-0.8); Monocytes % (Auto) 10.5 % (0.0-7.3); Platelet Count 180 K/mm3 (140-440); Red Blood Count 5.05 M/mm3 (3.65-5.03); Red Cell Distribution Width 13.4 % (13.2-15.2)
[2021-03-31 04:25] LABS: BUN/Creatinine Ratio 10; Blood Urea Nitrogen 8 mg/dL (9-20); Calcium 8.8 mg/dL (8.4-10.2); Hemolysis Index 0
[2021-03-31] MEDS: VANCOMYCIN 1,500 MG in SODIUM CHLORIDE 0.9% 500 ML 500 ML IV SCH ×2 (05:38→18:51)
[2021-03-31] MEDS: HEPARIN 5,000 UNIT/1 ML VIAL SUB-Q SCH ×3 (05:39→22:44)
--- NOTE | 2021-03-31 09:34 | Progress Note ---
Assessment and Plan Patient will be scheduled for revascularization procedure tomorrow. There is discordance between patient's ultrasound findings and patient's clinical presentation with his first toe wound and dusky discoloration suggesting some degree of arterial compromise. Ultimately, the patient will require amputation of his first toe. Subjective Date of service: 03/31/21 Principal diagnosis: PVD with first toe wound right foot Interval history: Patient with a history of presenting with PVD with first toe wound. His ultrasound results are noted. On examination, the patient's first toe is large, a minimal amount of drainage is present with dusky discoloration overlying the first metatarsal head as well as toes 2 through 5. Patient has no complaints at this time. Objective - Constitutional Vitals: Vital Signs - 12hr 03/31/21 05:00 O2 Sat by Pulse 97 Oximetry General appearance: Present: no acute distress - EENT Eyes: EOM intact ENT: hearing intact - Neck Neck: supple, normal ROM - Respiratory Respiratory effort: normal Extremities: abnormal - Gastrointestinal General gastrointestinal: Present: deferred Rectal Exam: deferred - Genitourinary Male genitourinary: deferred - Psychiatric Psychiatric: appropriate mood/affect, cooperative - Labs CBC & Chem 7: 03/31/21 03:39 03/31/21 03:39 Labs: Abnormal lab results 03/30/21 03/30/21 03/30/21 Range/Units 10:00 13:56 16:58 RBC (3.65-5.03) M/mm3 Hgb (11.8-15.2) gm/dl MCV (84-94) fl MCH (28-32) pg Colbert % (Auto) (0.0-7.3) % Lymph # (Auto) (1.2-5.4) K/mm3 BUN (9-20) mg/dL Glucose (75-100) mg/dL POC Glucose 221 H 200 H (70-105) mg/dL Hemoglobin A1c 10.9 H (4-6) % 03/30/21 03/31/21 03/31/21 Range/Units 23:26 03:39 03:39 RBC 5.05 H (3.65-5.03) M/mm3 Hgb 11.7 L (11.8-15.2) gm/dl MCV 71 L (84-94) fl MCH 23 L (28-32) pg Colbert % (Auto) 10.5 H (0.0-7.3) % Lymph # (Auto) 0.9 L (1.2-5.4) K/mm3 BUN 8 L (9-20) mg/dL Glucose 173 H (75-100) mg/dL POC Glucose 151 H (70-105) mg/dL Hemoglobin A1c (4-6) % 03/31/21 Range/Units 07:45 RBC (3.65-5.03) M/mm3 Hgb (11.8-15.2) gm/dl MCV (84-94) fl MCH (28-32) pg Colbert % (Auto) (0.0-7.3) % Lymph # (Auto) (1.2-5.4) K/mm3 BUN (9-20) mg/dL Glucose (75-100) mg/dL POC Glucose 200 H (70-105) mg/dL Hemoglobin A1c (4-6) % Medications & Allergies - Medications Allergies/Adverse Reactions: Allergies No Known Allergies Allergy (Verified 03/30/21 02:33) Home Medications: Home Medications Medication Instructions Recorded Confirmed Last Taken Type Ibuprofen [Motrin] 600 mg PO Q8H PRN #30 tablet 12/09/20 03/30/21 Unknown Rx Tramadol HCl/Acetaminophen 1 each PO Q4HR #12 tablet 12/09/20 03/30/21 Unknown Rx [Ultracet Tablet] methOCARBAMOL [Robaxin TAB] 750 mg PO Q8H PRN #30 tablet 12/09/20 03/30/21 Unknown Rx Active Medications: Generic Name Dose Route Start Last Admin Trade Name Som PRN Reason Stop Dose Admin Acetaminophen 650 mg 03/30/21 05:00 Acetaminophen 325 Mg Tab PO Q4H PRN Pain MILD(1-3)/Fever >100.5/LUNA Albuterol 2.5 mg 03/30/21 05:00 Albuterol 2.5 Mg/3 Ml Nebu IH Q4HRT PRN Shortness Of Breath Dextrose 50 ml 03/30/21 05:00 Dextrose 50% In Water (25gm) 50 Ml Syringe IV Q30MIN PRN Hypoglycemia Protocol Famotidine 20 mg 03/30/21 10:00 03/30/21 23:43 Famotidine 20 Mg Tab PO 20 mg BID SIRENA Administration Heparin Sodium (Porcine) 5,000 unit 03/30/21 06:00 03/31/21 05:39 Heparin 5,000 Unit/1 Ml Vial SUB-Q 5,000 unit Q8HR [facility] Administration Hydromorphone HCl 0.5 mg 03/30/21 05:00 03/31/21 03:49 Hydromorphone 1 Mg/1 Ml Inj IV 0.5 mg Q3H PRN Administration Pain , Severe (7-10) Vancomycin HCl 1,500 mg/ 530 mls @ 333.333 mls/hr 03/30/21 18:00 03/31/21 05:38 Sodium Chloride IV 333.333 mls/hr Q12H [facility] Administration Ampicillin Sodium/Sulbactam Sodium 3 gm in 100 mls @ 200 mls/hr 03/30/21 07:00 03/31/21 07:00 Unasyn/Ns 3 Gm/100 Ml IV 200 mls/hr Q6H [facility] Administration Protocol Ibuprofen 600 mg 03/30/21 05:03 Ibuprofen 600 Mg Tab PO Q8H PRN Pain, Mild (1-3) Insulin Glargine 10 units 03/30/21 22:00 03/31/21 00:04 Insulin Glargine 100 Units/Ml SUB-Q 10 units QHS [facility] Administration Insulin Human Lispro 0 unit 03/30/21 07:30 03/31/21 07:30 Insulin Lispro 100 Unit/Ml SUB-Q 4 unit ACHS [facility] Administration Protocol Insulin Human Lispro 10 unit 03/30/21 16:30 03/31/21 07:30 Insulin Lispro 100 Unit/Ml SUB-Q 10 unit AC [facility]RE[facility] Administration Methocarbamol 750 mg 03/30/21 05:03 Methocarbamol 750 Mg Tab PO Q8H PRN Spasms Ondansetron HCl 4 mg 03/30/21 05:00 Ondansetron 4 Mg/2 Ml Inj IV Q8H PRN Nausea And Vomiting Oxycodone/Acetaminophen 1 tab 03/30/21 05:00 Oxycodone /Acetaminophen 5-325mg Tab PO Q6H PRN Pain, Moderate (4-6) Sodium Chloride 10 ml 03/30/21 10:00 03/31/21 00:02 Sodium Chloride 0.9% 10 Ml Flush Syringe IV Not Given BID SIRE[facility] Sodium Chloride 10 ml 03/30/21 05:00 Sodium Chloride 0.9% 10 Ml Flush Syringe IV PRN PRN LINE FLUSH
[2021-03-31] MEDS: FAMOTIDINE 20 MG TAB PO SCH ×2 (09:54→22:44)
--- NOTE | 2021-03-31 10:18 | Progress Note ---
Assessment and Plan Assessment and plan: - Patient Problems (1) Cellulitis of toe of right foot Status: Acute Plan to address problem: Admit the patient to the medical floor. Put the patient on diabetic diet. Vancomycin 1 g IV every 12 hours. Zosyn 4.5 g IV every 8 hours. Reconsult the wound care evaluation. We do the blood culture wound culture. We also consult vascular surgery Dr. Aguila to see the patient for further evaluation and treatment as per ER doctor recommendation (2) Diabetes Status: Acute Plan to address problem: We will put the patient on 1800 kcal ADA diet. Humalog sliding scale high dose with Accu-Chek before meals and at bedtime. Diabetic education (3) Hyperglycemia Status: Acute Plan to address problem: We will put the patient on 1800 kcal ADA diet. Humalog sliding scale high dose with Accu-Chek before meals and at bedtime. Diabetic education (4) DVT prophylaxis Status: Acute Plan to address problem: Heparin 5000 units subcut every 8 hours for DVT prophylaxis. Pepcid 20 mg p.o. twice daily for GI prophylaxis. Patient is a full code 03/31/21 Patient with ulcer and cellulitis right big toe. Dr. Aguila following. Dr. Villegas to evaluate Diabetes mellitus . Blood glucose improving History Interval history: Ulcer right big toe Elevated blood glucose Hospitalist Physical - Physical exam Narrative exam: Gen:Not in acute distress, lying in bed HEENT:Normocephalic, atraumatic Neck:supple, no JVD Lungs: clear to auscultation ,no wheeze Heart:S1 and S2 reg, no murmurs, rubs or gallop Abd:Soft, non tender, non distended, normal bowel sounds Ext: right big toe ulcer, covered with dressing, minimal bleeding from area, Neuro:Awake, alert, oriented X 3, moves all ext - Constitutional Vitals: Temp Pulse Resp BP Pulse Ox 99.4 F 88 15 121/65 98 03/30/21 08:11 03/30/21 11:45 03/30/21 11:45 03/30/21 11:45 03/31/21 10:04 General appearance: Present: no acute distress Results - Labs CBC & Chem 7: 03/31/21 03:39 03/31/21 03:39 Labs: Laboratory Last Values WBC 5.4 K/mm3 (4.5-11.0) 03/31/21 03:39 RBC 5.05 M/mm3 (3.65-5.03) H 03/31/21 03:39 Hgb 11.7 gm/dl (11.8-15.2) L 03/31/21 03:39 Hct 35.8 % (35.5-45.6) 03/31/21 03:39 MCV 71 fl (84-94) L 03/31/21 03:39 MCH 23 pg (28-32) L 03/31/21 03:39 MCHC 33 % (32-34) 03/31/21 03:39 RDW 13.4 % (13.2-15.2) 03/31/21 03:39 Plt Count 180 K/mm3 (140-440) 03/31/21 03:39 Lymph % (Auto) 16.1 % (13.4-35.0) 03/31/21 03:39 Camp % (Auto) 10.5 % (0.0-7.3) H 03/31/21 03:39 Eos % (Auto) 3.4 % (0.0-4.3) 03/31/21 03:39 Baso % (Auto) 0.9 % (0.0-1.8) 03/31/21 03:39 Lymph # (Auto) 0.9 K/mm3 (1.2-5.4) L 03/31/21 03:39 [place] # (Auto) 0.6 K/mm3 (0.0-0.8) 03/31/21 03:39 Eos # (Auto) 0.2 K/mm3 (0.0-0.4) 03/31/21 03:39 Baso # (Auto) 0.0 K/mm3 (0.0-0.1) 03/31/21 03:39 Seg Neutrophils % 69.1 % (40.0-70.0) 03/31/21 03:39 Seg Neutrophils # 3.7 K/mm3 (1.8-7.7) 03/31/21 03:39 D-Dimer 187.58 ng/mlDDU (0-234) 03/30/21 09:08 Sodium 138 mmol/L (137-145) 03/31/21 03:39 Potassium 3.6 mmol/L (3.6-5.0) 03/31/21 03:39 Chloride 101.4 mmol/L (98-107) 03/31/21 03:39 Carbon Dioxide 28 mmol/L (22-30) 03/31/21 03:39 Anion Gap 12 mmol/L 03/31/21 03:39 BUN 8 mg/dL (9-20) L 03/31/21 03:39 Creatinine 0.8 mg/dL (0.8-1.3) 03/31/21 03:39 Estimated GFR > 60 ml/min 03/31/21 03:39 BUN/Creatinine Ratio 10 % 03/31/21 03:39 Glucose 173 mg/dL (75-100) H 03/31/21 03:39 POC Glucose 200 mg/dL (70-105) H 03/31/21 07:45 Hemoglobin A1c 10.9 % (4-6) H 03/30/21 13:56 Lactic Acid 1.50 mmol/L (0.7-2.0) 03/29/21 23:59 Calcium 8.8 mg/dL (8.4-10.2) 03/31/21 03:39 Total Bilirubin 1.30 mg/dL (0.1-1.2) H 03/29/21 23:59 AST 40 units/L (5-40) 03/29/21 23:59 ALT 32 units/L (7-56) 03/29/21 23:59 Alkaline Phosphatase 198 units/L (35-129) H 03/29/21 23:59 Total Protein 7.8 g/dL (6.3-8.2) 03/29/21 23:59 Albumin 4.0 g/dL (3.9-5) 03/29/21 23:59 Albumin/Globulin Ratio 1.1 % 03/29/21 23:59 Microbiology: Microbiology 03/29/21 23:59 Peripheral/Venous Blood Culture - Preliminary Culture in Progress 03/30/21 00:49 Peripheral/Venous Blood Culture - Preliminary Culture in Progress Carmichael/IV: Voiding Method Toilet Active Medications - Current Medications Current Medications: Generic Name Dose Route Start Last Admin Trade Name Freq PRN Reason Stop Dose Admin Acetaminophen 650 mg 03/30/21 05:00 Acetaminophen 325 Mg Tab PO Q4H PRN Pain MILD(1-3)/Fever >100.5/LUNA Albuterol 2.5 mg 03/30/21 05:00 Albuterol 2.5 Mg/3 Ml Nebu IH Q4HRT PRN Shortness Of Breath Dextrose 50 ml 03/30/21 05:00 Dextrose 50% In Water (25gm) 50 Ml Syringe IV Q30MIN PRN Hypoglycemia Protocol Famotidine 20 mg 03/30/21 10:00 03/31/21 09:54 Famotidine 20 Mg Tab PO 20 mg BID [facility] Administration Heparin Sodium (Porcine) 5,000 unit 03/30/21 06:00 03/31/21 05:39 Heparin 5,000 Unit/1 Ml Vial SUB-Q 5,000 unit Q8HR [facility] Administration Hydromorphone HCl 0.5 mg 03/30/21 05:00 03/31/21 03:49 Hydromorphone 1 Mg/1 Ml Inj IV 0.5 mg Q3H PRN Administration Pain , Severe (7-10) Vancomycin HCl 1,500 mg/ 530 mls @ 333.333 mls/hr 03/30/21 18:00 03/31/21 05:38 Sodium Chloride IV 333.333 mls/hr Q12H [facility] Administration Ampicillin Sodium/Sulbactam Sodium 3 gm in 100 mls @ 200 mls/hr 03/30/21 07:00 03/31/21 07:00 Unasyn/Ns 3 Gm/100 Ml IV 200 mls/hr Q6H [facility] Administration Protocol Ibuprofen 600 mg 03/30/21 05:03 Ibuprofen 600 Mg Tab PO Q8H PRN Pain, Mild (1-3) Insulin Glargine 10 units 03/30/21 22:00 03/31/21 00:04 Insulin Glargine 100 Units/Ml SUB-Q 10 units QHS [facility] Administration Insulin Human Lispro 0 unit 03/30/21 07:30 03/31/21 07:30 Insulin Lispro 100 Unit/Ml SUB-Q 4 unit ACHS [facility] Administration Protocol Insulin Human Lispro 10 unit 03/30/21 16:30 03/31/21 07:30 Insulin Lispro 100 Unit/Ml SUB-Q 10 unit AC [facility] Administration Methocarbamol 750 mg 03/30/21 05:03 Methocarbamol 750 Mg Tab PO Q8H PRN Spasms Ondansetron HCl 4 mg 03/30/21 05:00 Ondansetron 4 Mg/2 Ml Inj IV Q8H PRN Nausea And Vomiting Oxycodone/Acetaminophen 1 tab 03/30/21 05:00 Oxycodone /Acetaminophen 5-325mg Tab PO Q6H PRN Pain, Moderate (4-6) Sodium Chloride 10 ml 03/30/21 10:00 03/31/21 09:54 Sodium Chloride 0.9% 10 Ml Flush Syringe IV 10 ml BID [facility] Administration Sodium Chloride 10 ml 03/30/21 05:00 Sodium Chloride 0.9% 10 Ml Flush Syringe IV PRN PRN LINE FLUSH Nutrition/Malnutrition Assess - Dietary Evaluation Nutrition/Malnutrition Findings: Nutrition Notes Start: 03/30/21 10:21 Freq: Status: Active Protocol: Document 03/30/21 10:21 DELFINO (Rec: 03/30/21 10:23 DELFINO [id number]) Nutrition Notes Need for Assessment generated from: MD Order,Education Initial or Follow up Brief Note Current Diagnosis Diabetes Other Pertinent Diagnosis (R) great toe cellulitis, Diabetic neuropathy Current Diet Consistent CHO Subjective/Other Information RD consulted for diet education. Pt in ED at this time. Minimum of two criteria No Nutrition Intervention Follow-Up By: 04/04/21 Additional Comments F/U: transfer to medical floor , diet education needs
--- NOTE | 2021-03-31 14:39 | Consultation ---
History of Present Illness Consult date: 03/31/21 Chief complaint: right toe wound - History of present illness History of present illness: 60 yo M with hx of poorly controlled DM who presents to the emergency room with 3 weeks of worsening right great toe pain, swelling, drainage. Patient states he presented to the emergency room because the pain became too severe and the ar ea started bleeding. He has never had anything like this before. He denies fevers or chills, chest pain, shortness of breath. He denies neuropathy. He denies trauma to the area. Surgery is consulted due to right great toe infection, ischemia. Past History Past Medical History: diabetes, other (Diabetic neuropathy) Past Surgical History: No surgical history Social history: no significant social history Family history: no significant family history Medications and Allergies Allergies Allergy/AdvReac Type Severity Reaction Status Date / Time No Known Allergies Allergy Verified 03/30/21 02:33 Home Medications Medication Instructions Recorded Confirmed Last Taken Type Ibuprofen [Motrin] 600 mg PO Q8H PRN #30 tablet 12/09/20 03/30/21 Unknown Rx Tramadol HCl/Acetaminophen 1 each PO Q4HR #12 tablet 12/09/20 03/30/21 Unknown Rx [Ultracet Tablet] methOCARBAMOL [Robaxin TAB] 750 mg PO Q8H PRN #30 tablet 12/09/20 03/30/21 Unknown Rx Active Meds: Active Medications Acetaminophen (Acetaminophen 325 Mg Tab) 650 mg PO Q4H PRN PRN Reason: Pain MILD(1-3)/Fever >100.5/LUNA Albuterol (Albuterol 2.5 Mg/3 Ml Nebu) 2.5 mg IH Q4HRT PRN PRN Reason: Shortness Of Breath Dextrose (Dextrose 50% In Water (25gm) 50 Ml Syringe) 50 ml IV Q30MIN PRN; Protocol PRN Reason: Hypoglycemia Famotidine (Famotidine 20 Mg Tab) 20 mg PO BID [facility] Last Admin: 03/31/21 09:54 Dose: 20 mg Documented by: Heparin Sodium (Porcine) (Heparin 5,000 Unit/1 Ml Vial) 5,000 unit SUB-Q Q8HR SIRENA Last Admin: 03/31/21 13:37 Dose: 5,000 unit Documented by: Hydromorphone HCl (Hydromorphone 1 Mg/1 Ml Inj) 0.5 mg IV Q3H PRN PRN Reason: Pain , Severe (7-10) Last Admin: 03/31/21 13:39 Dose: 0.5 mg Documented by: Vancomycin HCl 1,500 mg/ (Sodium Chloride) 530 mls @ 333.333 mls/hr IV Q12H [facility] Last Admin: 03/31/21 05:38 Dose: 333.333 mls/hr Documented by: Ampicillin Sodium/Sulbactam Sodium (Unasyn/Ns 3 Gm/100 Ml) 3 gm in 100 mls @ 200 mls/hr IV Q6H [facility]; Protocol Last Admin: 03/31/21 13:36 Dose: 200 mls/hr Documented by: Ibuprofen (Ibuprofen 600 Mg Tab) 600 mg PO Q8H PRN PRN Reason: Pain, Mild (1-3) Insulin Glargine (Insulin Glargine 100 Units/Ml) 10 units SUB-Q QHS [facility] Last Admin: 03/31/21 00:04 Dose: 10 units Documented by: Insulin Human Lispro (Insulin Lispro 100 Unit/Ml) 0 unit SUB-Q [facility]; Protocol Last Admin: 03/31/21 10:30 Dose: Not Given Documented by: Insulin Human Lispro (Insulin Lispro 100 Unit/Ml) 10 unit SUB-Q [facility] Last Admin: 03/31/21 11:30 Dose: Not Given Documented by: Methocarbamol (Methocarbamol 750 Mg Tab) 750 mg PO Q8H PRN PRN Reason: Spasms Ondansetron HCl (Ondansetron 4 Mg/2 Ml Inj) 4 mg IV Q8H PRN PRN Reason: Nausea And Vomiting Oxycodone/Acetaminophen (Oxycodone /Acetaminophen 5-325mg Tab) 1 tab PO Q6H PRN PRN Reason: Pain, Moderate (4-6) Sodium Chloride (Sodium Chloride 0.9% 10 Ml Flush Syringe) 10 ml IV BID [facility] Last Admin: 03/31/21 09:54 Dose: 10 ml Documented by: Sodium Chloride (Sodium Chloride 0.9% 10 Ml Flush Syringe) 10 ml IV PRN PRN PRN Reason: LINE FLUSH Review of Systems All systems: negative (10 point ROS performed and negative except for that listed in HPI) Exam Vital Signs Temp Pulse Resp BP Pulse Ox 99.4 F 86 16 154/86 98 03/29/21 23:41 09/10/21 23:41 03/29/21 23:41 03/29/21 23:41 03/29/21 23:41 Narrative exam: Gen.: Awake, alert, oriented x3. No apparent distress ENT: Trachea midline. No lymphadenopathy. No scleral icterus or conjunctival pallor CV: S1, S2 present Respiratory: No audible wheezes Abdomen: Soft, nondistended, nontender. No rebound, rigidity, guarding Extremities: Right lower extremity is warm and foot is in a dressing which is clean, dry, intact. There is an odor. Admission photos reviewedthe right great toe is edematous, erythematous with some dusky discoloration concerning for ischemia. Results - Labs 03/31/21 03:39 03/31/21 03:39 Abnormal lab results 03/30/21 03/30/21 03/30/21 Range/Units 13:56 16:58 23:26 RBC (3.65-5.03) M/mm3 Hgb (11.8-15.2) gm/dl MCV (84-94) fl MCH (28-32) pg [place] % (Auto) (0.0-7.3) % Lymph # (Auto) (1.2-5.4) K/mm3 BUN (9-20) mg/dL Glucose (75-100) mg/dL POC Glucose 200 H 151 H (70-105) mg/dL Hemoglobin A1c 10.9 H (4-6) % 03/31/21 03/31/21 03/31/21 Range/Units 03:39 03:39 07:45 RBC 5.05 H (3.65-5.03) M/mm3 Hgb 11.7 L (11.8-15.2) gm/dl MCV 71 L (84-94) fl MCH 23 L (28-32) pg [place] % (Auto) 10.5 H (0.0-7.3) % Lymph # (Auto) 0.9 L (1.2-5.4) K/mm3 BUN 8 L (9-20) mg/dL Glucose 173 H (75-100) mg/dL POC Glucose 200 H (70-105) mg/dL Hemoglobin A1c (4-6) % Diabetes panel 03/30/21 03/31/21 Range/Units 13:56 03:39 Sodium 138 (137-145) mmol/L Potassium 3.6 (3.6-5.0) mmol/L Chloride 101.4 (98-107) mmol/L Carbon Dioxide 28 (22-30) mmol/L BUN 8 L (9-20) mg/dL Creatinine 0.8 (0.8-1.3) mg/dL Glucose 173 H (75-100) mg/dL Hemoglobin A1c 10.9 H (4-6) % Calcium 8.8 (8.4-10.2) mg/dL Calcium panel 03/31/21 Range/Units 03:39 Calcium 8.8 (8.4-10.2) mg/dL Pituitary panel 03/31/21 Range/Units 03:39 Sodium 138 (137-145) mmol/L Potassium 3.6 (3.6-5.0) mmol/L Chloride 101.4 (98-107) mmol/L Carbon Dioxide 28 (22-30) mmol/L BUN 8 L (9-20) mg/dL Creatinine 0.8 (0.8-1.3) mg/dL Glucose 173 H (75-100) mg/dL Calcium 8.8 (8.4-10.2) mg/dL Adrenal panel 03/31/21 Range/Units 03:39 Sodium 138 (137-145) mmol/L Potassium 3.6 (3.6-5.0) mmol/L Chloride 101.4 (98-107) mmol/L Carbon Dioxide 28 (22-30) mmol/L BUN 8 L (9-20) mg/dL Creatinine 0.8 (0.8-1.3) mg/dL Glucose 173 H (75-100) mg/dL Calcium 8.8 (8.4-10.2) mg/dL - Imaging Additional studies: Right foot x-ray Assessment and Plan 60-year-old male with 1. Diabetes mellitus with infected right great toe 2. PVD 3. poorly controlled DM - HbA1c - 10.9 Art studies reviewed Plan: 1. Vascular on board - patient scheduled for angio tomorrow 2. MRI RLE pending 3. IV abx 4. prn pain control 5. strict glucose control 6. daily wound care 7. PT consult 8. case management consult 9. Will likely need amputation of right great toe after revascularization. Will discuss with Dr. Villegas in am. Patient is agreeable to amputation. Thank you for this consultation. Please call with any questions or concerns. Evaluation and treatment of this patient was during the time of the national and state emergency arising from COVID19 coronavirus pandemic. Treatment and procedures performed meet the current and available best practice and guidelines for patient during the COVID pandemic.
--- NOTE | 2021-03-31 17:21 | Consultation ---
History of Present Illness - Reason for Consult Consult date: 03/31/21 Right great toe cellulitis - History of Present Illness 60-year-old male with history of diabetes mellitus, uncontrolled, diabetic neuropathy, admitted on 03/29/2021 secondary to 3-week history of right great toe pain, edema and purulent drainage. Patient denies any fever, chills, nausea, vomiting. Home glucose is over 200s. On arrival, temperature 99.4, HR 86, RR 16, O2 sat 98, BP 134/86. Initial WBC 7.6. Glucose 345. Blood culture 03/30/2021 pending. X-ray of the right foot shows diffuse soft tissue swelling, no osteomyelitis. Arterial ultrasound shows high grade stenosis of the dorsal pedis. Review of Systems: positive in bold print General: fever, chills, malaise Cutaneous: rash, pruritus Head: headaches or injury Eyes: changes in vision, eye pain, double vision Ears: ear pain, ear discharge, ringing or hearing loss Nose: nose bleeding, stuffiness Mouth & throat: bleeding gums, horseness, no dental problems, or swollen glands Neck: no pain, node enlargement/lumps, tyroid enlargement or tenderness Respiratory: SOB, cough, ROMERO, wheezing, sputum, hemoptysis, pleuritic chest pain Cardiovascular: chest pain, leg edema, cyanosis, ROMERO, orthopnea Musculoskeletal:right great toe pain, edema, purulence discharge Gastrointestinal: nausea, vomiting, hematemesis, diarrhea, constipation, melena, bright red blood in stools, fecal incontinence, jaundice Genitourinary/Reproductive: frequent urination, dysuria, hematuria, incontinence Neurogical: seizures, headaches, weakness, paresthesias, loss of speech or vision; memory loss, vertigo, tremors, numbness Psychiatric: stable mood; excessive anxiety, sadness or moodiness Past History Past Medical History: diabetes, other (Diabetic neuropathy) Past Surgical History: No surgical history Social history: no significant social history Family history: no significant family history Medications and Allergies Allergies Allergy/AdvReac Type Severity Reaction Status Date / Time No Known Allergies Allergy Verified 03/30/21 02:33 Home Medications Medication Instructions Recorded Confirmed Last Taken Type Ibuprofen [Motrin] 600 mg PO Q8H PRN #30 tablet 12/09/20 03/30/21 Unknown Rx Tramadol HCl/Acetaminophen 1 each PO Q4HR #12 tablet 12/09/20 03/30/21 Unknown Rx [Ultracet Tablet] methOCARBAMOL [Robaxin TAB] 750 mg PO Q8H PRN #30 tablet 12/09/20 03/30/21 Unknown Rx Active Meds: Active Medications Acetaminophen (Acetaminophen 325 Mg Tab) 650 mg PO Q4H PRN PRN Reason: Pain MILD(1-3)/Fever >100.5/LUNA Albuterol (Albuterol 2.5 Mg/3 Ml Nebu) 2.5 mg IH Q4HRT PRN PRN Reason: Shortness Of Breath Dextrose (Dextrose 50% In Water (25gm) 50 Ml Syringe) 50 ml IV Q30MIN PRN; Protocol PRN Reason: Hypoglycemia Famotidine (Famotidine 20 Mg Tab) 20 mg PO BID [facility] Last Admin: 03/31/21 09:54 Dose: 20 mg Documented by: Heparin Sodium (Porcine) (Heparin 5,000 Unit/1 Ml Vial) 5,000 unit SUB-Q Q8HR [facility] Last Admin: 03/31/21 13:37 Dose: 5,000 unit Documented by: Hydromorphone HCl (Hydromorphone 1 Mg/1 Ml Inj) 0.5 mg IV Q3H PRN PRN Reason: Pain , Severe (7-10) Last Admin: 03/31/21 13:39 Dose: 0.5 mg Documented by: Vancomycin HCl 1,500 mg/ (Sodium Chloride) 530 mls @ 333.333 mls/hr IV Q12H [facility] Last Admin: 03/31/21 05:38 Dose: 333.333 mls/hr Documented by: Ampicillin Sodium/Sulbactam Sodium (Unasyn/Ns 3 Gm/100 Ml) 3 gm in 100 mls @ 200 mls/hr IV Q6H [facility]; Protocol Last Admin: 03/31/21 13:36 Dose: 200 mls/hr Documented by: Ibuprofen (Ibuprofen 600 Mg Tab) 600 mg PO Q8H PRN PRN Reason: Pain, Mild (1-3) Insulin Glargine (Insulin Glargine 100 Units/Ml) 10 units SUB-Q QHS [facility] Last Admin: 03/31/21 00:04 Dose: 10 units Documented by: Insulin Human Lispro (Insulin Lispro 100 Unit/Ml) 0 unit SUB-Q ACHS [facility]; Protocol Last Admin: 03/31/21 10:30 Dose: Not Given Documented by: Insulin Human Lispro (Insulin Lispro 100 Unit/Ml) 10 unit SUB-Q AC [facility] Last Admin: 03/31/21 11:30 Dose: Not Given Documented by: Methocarbamol (Methocarbamol 750 Mg Tab) 750 mg PO Q8H PRN PRN Reason: Spasms Ondansetron HCl (Ondansetron 4 Mg/2 Ml Inj) 4 mg IV Q8H PRN PRN Reason: Nausea And Vomiting Oxycodone/Acetaminophen (Oxycodone /Acetaminophen 5-325mg Tab) 1 tab PO Q6H PRN PRN Reason: Pain, Moderate (4-6) Sodium Chloride (Sodium Chloride 0.9% 10 Ml Flush Syringe) 10 ml IV BID [facility] Last Admin: 03/31/21 09:54 Dose: 10 ml Documented by: Sodium Chloride (Sodium Chloride 0.9% 10 Ml Flush Syringe) 10 ml IV PRN PRN PRN Reason: LINE FLUSH Physical Examination - Physical Exam Narrative exam: General appearance: Alert in NAD pleasant Eyes: anicteric sclerae, moist conjunctivae; no lid-lag; PERRLA HENT: Normocephalic, Atraumatic; normal external ears, nares open, oropharynx clear Neck: supple, tracheal midline, no JVD Lungs: CTA, with normal respiratory effort and no intercostal retractions CV: RRR no murmur Abdomen: Soft, non-tender; no masses or hepatosplenomegaly Extremities: Right great toe with marked edema, erythema, wound, covered with dressings Skin: No rash. Psych: no agitated Neuro: alert and oriented x 3. Moving all extermities - Constitutional Vitals: Vital Signs Temp Pulse Resp BP Pulse Ox 98.5 F 91 H 18 129/72 95 03/31/21 03:28 03/31/21 11:14 03/31/21 03:28 03/31/21 03:28 03/31/21 11:14 Temperature -Last 24 Hours Temperature 98.5 F Results - Labs CBC & Chem 7: 03/31/21 03:39 03/31/21 03:39 Labs: Abnormal lab results 03/30/21 03/31/21 03/31/21 Range/Units 23:26 03:39 03:39 RBC 5.05 H (3.65-5.03) M/mm3 Hgb 11.7 L (11.8-15.2) gm/dl MCV 71 L (84-94) fl MCH 23 L (28-32) pg [place] % (Auto) 10.5 H (0.0-7.3) % Lymph # (Auto) 0.9 L (1.2-5.4) K/mm3 BUN 8 L (9-20) mg/dL Glucose 173 H (75-100) mg/dL POC Glucose 151 H (70-105) mg/dL 03/31/21 03/31/21 Range/Units 07:45 16:14 RBC (3.65-5.03) M/mm3 Hgb (11.8-15.2) gm/dl MCV (84-94) fl MCH (28-32) pg [place] % (Auto) (0.0-7.3) % Lymph # (Auto) (1.2-5.4) K/mm3 BUN (9-20) mg/dL Glucose (75-100) mg/dL POC Glucose 200 H 194 H (70-105) mg/dL Assessment and Plan Cultures: Blood culture 03/30/2021 no growth today Assessment: 60-year-old male with history of diabetes mellitus, uncontrolled, diabetic neuropathy, admitted on 03/29/2021 secondary to 3-week history of right great toe pain, edema and purulent drainage: #Right foot diabetic ulcer with cellulitis/possible abscess: Should rule out osteomyelitis. #Peripheral vascular disease: Arterial ultrasound abnormal. #Diabetes mellitus: Uncontrolled Recommendations: -Continue Unasyn IV and vancomycin IV with PK consult for now -Obtain the wound cultures -Agree with MRI -Keep vancomycin trough between 10 and 20 -Vascular to do angiogram -Surgical consult noted agree with debridement versus amputation -Duration of IV antibiotics depends on surgical plan Will follow. Eri Ferguson MD Infectious Diseases Category Manager [facility] M [phone] O [phone]
[2021-04-01] MEDS: ACETAMINOPHEN 325 MG TAB PO PRN (00:31)
[2021-04-01] MEDS: AMPICILLIN/SULBACTA 3GM/100ML 3 GM/100 ML BAG IV SCH ×3 (01:17→13:00)
[2021-04-01 04:24] LABS: Hematocrit 32.3 % (35.5-45.6); Mean Corpuscular HGB Conc 34 % (32-34); Mean Corpuscular Volume 71 fl (84-94); Platelet Count 183 K/mm3 (140-440); Red Blood Count 4.55 M/mm3 (3.65-5.03); Red Cell Distribution Width 13.5 % (13.2-15.2)
[2021-04-01 04:46] LABS: BUN/Creatinine Ratio 11; Blood Urea Nitrogen 10 mg/dL (9-20); Calcium 8.5 mg/dL (8.4-10.2); Hemolysis Index 0
[2021-04-01] MEDS: HEPARIN 5,000 UNIT/1 ML VIAL SUB-Q SCH ×3 (05:54→21:12)
[2021-04-01] MEDS: VANCOMYCIN 1,500 MG in SODIUM CHLORIDE 0.9% 500 ML 500 ML IV SCH ×2 (05:54→18:43)
[2021-04-01] MEDS: INSULIN LISPRO 100 UNIT/ML SUB-Q SCH ×7 (08:00→23:00)
[2021-04-01] MEDS: FAMOTIDINE 20 MG TAB PO SCH ×2 (10:43→21:12)
--- NOTE | 2021-04-01 10:50 | Vascular Lab Report ---
VL marissa evaluation INDICATION: Right first toe gangrene. COMPARISON: None available. FINDINGS: The right MARISSA could not be calculated as a pressure in the right foot could not be measured. The left MARISSA is 0.43. IMPRESSION: 1. Left MARISSA of 0.43. 2. Unable to calculate right MARISSA. Signer Name: Manuel Harris MD Signed: 04/01/2021 10:43 AM Workstation Name: [id number]
--- NOTE | 2021-04-01 11:27 | Progress Note ---
Assessment and Plan Assessment and plan: - Patient Problems Osteomyelitis and abscess 1st toe right foot Seen on MRI today (1) Cellulitis of toe of right foot Status: Acute Plan to address problem: Admit the patient to the medical floor. Put the patient on diabetic diet. Vancomycin 1 g IV every 12 hours. Zosyn 4.5 g IV every 8 hours. Reconsult the wound care evaluation. We do the blood culture wound culture. We also consult vascular surgery Dr. Aguila to see the patient for further evaluation and treatment as per ER doctor recommendation (2) Diabetes Status: Acute Plan to address problem: We will put the patient on 1800 kcal ADA diet. Humalog sliding scale high dose with Accu-Chek before meals and at bedtime. Diabetic education (3) Hyperglycemia Status: Acute Plan to address problem: We will put the patient on 1800 kcal ADA diet. Humalog sliding scale high dose with Accu-Chek before meals and at bedtime. Diabetic education (4) DVT prophylaxis Status: Acute Plan to address problem: Heparin 5000 units subcut every 8 hours for DVT prophylaxis. Pepcid 20 mg p.o. twice daily for GI prophylaxis. Patient is a full code 03/31/21 Patient with ulcer and cellulitis right big toe. Dr. Aguila following. Dr. Villegas to evaluate Diabetes mellitus . Blood glucose improving 04/01/21 Patient with Osteomyelitis proximal and distal phalanges first toe right foot, with abscess, ulcer and cellulitis right big toe. Dr. Aguila following. Dr. Villegas to evaluate MRI done today reveals osteomyelitis. ID following Diabetes mellitus . Blood glucose improving. Patient was on Insulin at home. On Unasyn,Vancomycin History Interval history: Ulcer right big toe Hospitalist Physical - Physical exam Narrative exam: Gen:Not in acute distress, lying in bed HEENT:Normocephalic, atraumatic Neck:supple, no JVD Lungs: clear to auscultation ,no wheeze Heart:S1 and S2 reg, no murmurs, rubs or gallop Abd:Soft, non tender, non distended, normal bowel sounds Ext: right big toe ulcer, covered with dressing, minimal bleeding from area, Neuro:Awake, alert, oriented X 3, moves all ext - Constitutional Vitals: Temp Pulse Resp BP Pulse Ox 98.4 F 89 18 146/75 94 04/01/21 05:01 04/01/21 05:01 04/01/21 05:01 04/01/21 05:01 04/01/21 05:01 General appearance: Present: no acute distress Results - Labs CBC & Chem 7: 04/01/21 03:39 04/01/21 03:39 Labs: Laboratory Last Values WBC 5.9 K/mm3 (4.5-11.0) 04/01/21 03:39 RBC 4.55 M/mm3 (3.65-5.03) 04/01/21 03:39 Hgb 11.0 gm/dl (11.8-15.2) L 04/01/21 03:39 Hct 32.3 % (35.5-45.6) L 04/01/21 03:39 MCV 71 fl (84-94) L 04/01/21 03:39 MCH 24 pg (28-32) L 04/01/21 03:39 MCHC 34 % (32-34) 04/01/21 03:39 RDW 13.5 % (13.2-15.2) 04/01/21 03:39 Plt Count 183 K/mm3 (140-440) 04/01/21 03:39 Lymph % (Auto) 16.1 % (13.4-35.0) 03/31/21 03:39 [place] % (Auto) 10.5 % (0.0-7.3) H 03/31/21 03:39 Eos % (Auto) 3.4 % (0.0-4.3) 03/31/21 03:39 Baso % (Auto) 0.9 % (0.0-1.8) 03/31/21 03:39 Lymph # (Auto) 0.9 K/mm3 (1.2-5.4) L 03/31/21 03:39 [place] # (Auto) 0.6 K/mm3 (0.0-0.8) 03/31/21 03:39 Eos # (Auto) 0.2 K/mm3 (0.0-0.4) 03/31/21 03:39 Baso # (Auto) 0.0 K/mm3 (0.0-0.1) 03/31/21 03:39 Seg Neutrophils % 69.1 % (40.0-70.0) 03/31/21 03:39 Seg Neutrophils # 3.7 K/mm3 (1.8-7.7) 03/31/21 03:39 D-Dimer 187.58 ng/mlDDU (0-234) 03/30/21 09:08 Sodium 138 mmol/L (137-145) 04/01/21 03:39 Potassium 3.8 mmol/L (3.6-5.0) 04/01/21 03:39 Chloride 103.2 mmol/L (98-107) 04/01/21 03:39 Carbon Dioxide 26 mmol/L (22-30) 04/01/21 03:39 Anion Gap 13 mmol/L 04/01/21 03:39 BUN 10 mg/dL (9-20) 04/01/21 03:39 Creatinine 0.9 mg/dL (0.8-1.3) 04/01/21 03:39 Estimated GFR > 60 ml/min 04/01/21 03:39 BUN/Creatinine Ratio 11 % 04/01/21 03:39 Glucose 231 mg/dL (75-100) H 04/01/21 03:39 POC Glucose 186 mg/dL (70-105) H 04/01/21 07:41 Hemoglobin A1c 10.9 % (4-6) H 03/30/21 13:56 Lactic Acid 1.50 mmol/L (0.7-2.0) 03/29/21 23:59 Calcium 8.5 mg/dL (8.4-10.2) 04/01/21 03:39 Total Bilirubin 1.30 mg/dL (0.1-1.2) H 03/29/21 23:59 AST 40 units/L (5-40) 03/29/21 23:59 ALT 32 units/L (7-56) 03/29/21 23:59 Alkaline Phosphatase 198 units/L (35-129) H 03/29/21 23:59 Total Protein 7.8 g/dL (6.3-8.2) 03/29/21 23:59 Albumin 4.0 g/dL (3.9-5) 03/29/21 23:59 Albumin/Globulin Ratio 1.1 % 03/29/21 23:59 Microbiology: Microbiology 03/29/21 23:59 Peripheral/Venous Blood Culture - Preliminary NO GROWTH AFTER 24 HOURS 03/30/21 00:49 Peripheral/Venous Blood Culture - Preliminary NO GROWTH AFTER 24 HOURS Carmichael/IV: Voiding Method Toilet Active Medications - Current Medications Current Medications: Generic Name Dose Route Start Last Admin Trade Name Freq PRN Reason Stop Dose Admin Acetaminophen 650 mg 03/30/21 05:00 04/01/21 00:31 Acetaminophen 325 Mg Tab PO 650 mg Q4H PRN Administration Pain MILD(1-3)/Fever >100.5/LUNA Albuterol 2.5 mg 03/30/21 05:00 Albuterol 2.5 Mg/3 Ml Nebu IH Q4HRT PRN Shortness Of Breath Dextrose 50 ml 03/30/21 05:00 Dextrose 50% In Water (25gm) 50 Ml Syringe IV Q30MIN PRN Hypoglycemia Protocol Famotidine 20 mg 03/30/21 10:00 04/01/21 10:43 Famotidine 20 Mg Tab PO Not Given BID [facility] Heparin Sodium (Porcine) 5,000 unit 03/30/21 06:00 04/01/21 05:54 Heparin 5,000 Unit/1 Ml Vial SUB-Q 5,000 unit Q8HR SIRENA Administration Hydromorphone HCl 0.5 mg 03/30/21 05:00 03/31/21 13:39 Hydromorphone 1 Mg/1 Ml Inj IV 0.5 mg Q3H PRN Administration Pain , Severe (7-10) Vancomycin HCl 1,500 mg/ 530 mls @ 333.333 mls/hr 03/30/21 18:00 04/01/21 05:54 Sodium Chloride IV 333.333 mls/hr Q12H SIRENA Administration Ampicillin Sodium/Sulbactam Sodium 3 gm in 100 mls @ 200 mls/hr 03/30/21 07:00 04/01/21 07:57 Unasyn/Ns 3 Gm/100 Ml IV 200 mls/hr Q6H SIRENA Administration Protocol Ibuprofen 600 mg 03/30/21 05:03 Ibuprofen 600 Mg Tab PO Q8H PRN Pain, Mild (1-3) Insulin Glargine 10 units 03/30/21 22:00 03/31/21 22:46 Insulin Glargine 100 Units/Ml SUB-Q Not Given QHS [facility] Insulin Human Lispro 0 unit 03/30/21 07:30 04/01/21 08:00 Insulin Lispro 100 Unit/Ml SUB-Q Not Given ACHS [facility] Protocol Insulin Human Lispro 10 unit 03/30/21 16:30 04/01/21 08:00 Insulin Lispro 100 Unit/Ml SUB-Q Not Given AC SIRENA Methocarbamol 750 mg 03/30/21 05:03 Methocarbamol 750 Mg Tab PO Q8H PRN Spasms Ondansetron HCl 4 mg 03/30/21 05:00 Ondansetron 4 Mg/2 Ml Inj IV Q8H PRN Nausea And Vomiting Oxycodone/Acetaminophen 1 tab 03/30/21 05:00 Oxycodone /Acetaminophen 5-325mg Tab PO Q6H PRN Pain, Moderate (4-6) Sodium Chloride 10 ml 03/30/21 10:00 04/01/21 10:43 Sodium Chloride 0.9% 10 Ml Flush Syringe IV 10 ml BID SIRE[facility] Administration Sodium Chloride 10 ml 03/30/21 05:00 Sodium Chloride 0.9% 10 Ml Flush Syringe IV PRN PRN LINE FLUSH Nutrition/Malnutrition Assess - Dietary Evaluation Nutrition/Malnutrition Findings: Nutrition Notes Start: 03/30/21 10:21 Freq: Status: Active Protocol: Document 03/30/21 10:21 [facility] (Rec: 03/30/21 10:23 [facility] [id number]) Nutrition Notes Need for Assessment generated from: MD Order,Education Initial or Follow up Brief Note Current Diagnosis Diabetes Other Pertinent Diagnosis (R) great toe cellulitis, Diabetic neuropathy Current Diet Consistent CHO Subjective/Other Information RD consulted for diet education. Pt in ED at this time. Minimum of two criteria No Nutrition Intervention Follow-Up By: 04/04/21 Additional Comments F/U: transfer to medical floor , diet education needs
--- NOTE | 2021-04-01 12:05 | Magnetic Resonance Report ---
MRI RIGHT FOOT WITHOUT CONTRAST INDICATION / CLINICAL INFORMATION: right great toe wound, r/o osteo. TECHNIQUE: Multiplanar, multisequence MR images were obtained. COMPARISON: Right foot radiographs 03/30/2021 FINDINGS: Marrow edema throughout the great toe distal phalanx with faint edema also noted within the distal as pect of the proximal phalanx. There is faint T1 hypointense signal within the distal aspect of the di stal phalanx. Surrounding soft tissue edema and small ulceration along the plantar medial aspect of t he distal great toe. There is a small subcutaneous abscess which measures approximately 1.4 x 0.8 x 1 .5 cm along the plantar medial aspect of the first interphalangeal joint. There are a few scattered f oci of soft tissue gas regional to the first toe and MTP joint. No other foci of abnormal marrow signal intensity. Moderate polyarticular degenerative changes throughout the imaged forefoot. Fatty atrophy and intramu scular edema of the intrinsic foot musculature. Moderate subcutaneous edema overlying the dorsum of t he forefoot. IMPRESSION: 1. Plantar ulceration along the medial aspect of the great toe with underlying subcutaneous abscess and associated early osteomyelitis of the proximal and distal great toe phalanges. Report dictated by: Genaro Curiel MD Report dictated on: 04/01/2021 10:25 AM I have reviewed the images, agree with this report, and edited this report as needed. Signer Name: Laz Whipple MD Signed: 04/01/2021 12:01 PM Workstation Name: [id number]
[2021-04-01] MEDS ORDERED: HEPARIN 10,000 UNITS/10 ML VIAL ONE (13:42)
[2021-04-01] MEDS ORDERED: HEPARIN/NS 5000 UNIT/500ML 1,000 ML IR ONE (13:42)
[2021-04-01] MEDS: MIDAZOLAM 2 MG/2 ML INJ ONE ×4 (13:43→14:30)
[2021-04-01] MEDS ORDERED: SODIUM CHLORIDE 0.9% 500 ML 500 ML ONE (13:57)
[2021-04-01] MEDS: fentaNYL 100 MCG/2 ML INJ ONE ×4 (14:13→14:29)
[2021-04-01] MEDS: LIDOCAINE (2%) 20 MG/1 ML VIAL 20 ML MDV INFILTRATI ONE ×2 (14:14→14:18)
[2021-04-01] MEDS ORDERED: fentaNYL 100 MCG/2 ML INJ ONE (14:31)
[2021-04-01] MEDS ORDERED: MIDAZOLAM 2 MG/2 ML INJ ONE (14:31)
[2021-04-01] MEDS ORDERED: HEPARIN/NS 5000 UNIT/500ML 500 ML IR ONE ×2 (14:36→14:55)
[2021-04-01] MEDS ORDERED: NITROGLYCERIN SYRINGE 3 ML ONE ×2 (14:52→14:56)
[2021-04-01] MEDS ORDERED: VERAPAMIL 5 MG/2 ML INJ ONE (15:04)
[2021-04-01] MEDS ORDERED: NITROGLYCERIN DRIP 50 MG/250 ML BOTTLE ONE (15:04)
[2021-04-01] MEDS ORDERED: SODIUM CHLORIDE 0.9% 1000 ML 1,000 ML ONE (15:05)
[2021-04-01] MEDS ORDERED: NITROGLYCERIN SYRINGE 6 ML ONE (15:15)
[2021-04-01] MEDS ORDERED: CLOPIDOGREL 300 MG TAB ONE (15:39)
[2021-04-01] MEDS ORDERED: ASPIRIN 81 MG TAB CHEW ONE (15:39)
--- NOTE | 2021-04-01 15:55 | Progress Note ---
Assessment and Plan Cultures: Blood culture 03/30/2021 no growth today Assessment: 60-year-old male with history of diabetes mellitus, uncontrolled, diabetic neuropathy, admitted on 03/29/2021 secondary to 3-week history of right great toe pain, edema and purulent drainage: #Fever: likely due to foot infection #Right foot diabetic ulcer with cellulitis/abscess/osteomyelitis: MRI shows plantar ulcer at the medial aspect of the great toe with an abscess 1.4x0.8 x 1.5 cm and osteomyelitis. #Peripheral vascular disease: Arterial ultrasound abnormal. #Diabetes mellitus: Uncontrolled Recommendations: -Surgical evaluation for I&D versus amputation, MRI with abscess and osteomy elitis -Stop Unasyn IV -Start cefepime and Flagyl -Continue vancomycin IV with PK consult for now -Obtain the wound cultures, pending -Keep vancomycin trough between 10 and 20 -Vascular to do angio -Duration of IV antibiotics depends on surgical plan Will follow. Eri Ferguson MD Infectious Diseases Lead Android Developer [facility] ([facility]) M [phone] O [phone] Subjective Date of service: 04/01/21 Principal diagnosis: PVD with first toe wound right foot Interval history: Patient feels better. Noted low-grade fever. Complaining of right toe pain. Objective - Exam Narrative Exam: General appearance: Alert in NAD pleasant Eyes: anicteric sclerae, moist conjunctivae; no lid-lag; PERRLA HENT: Normocephalic, Atraumatic; normal external ears, nares open, oropharynx clear Neck: supple, tracheal midline, no JVD Lungs: CTA, with normal respiratory effort and no intercostal retractions CV: RRR no murmur Abdomen: Soft, non-tender; no masses or hepatosplenomegaly Extremities: Right great toe with marked edema, erythema, wound, covered with dressings Skin: No rash. Psych: no agitated Neuro: alert and oriented x 3. Moving all extermities - Constitutional Vitals: Vital Signs Temp Pulse Resp BP Pulse Ox 99.2 F 79 18 146/80 97 04/01/21 11:43 04/01/21 11:43 04/01/21 11:43 04/01/21 11:43 04/01/21 11:43 Temperature -Last 24 Hours Temperature 99.2 F Temperature 98.4 F Temperature 100.5 F Temperature 100.7 F - Labs CBC & Chem 7: 04/01/21 03:39 04/01/21 03:39 Labs: Abnormal lab results 03/31/21 03/31/21 04/01/21 Range/Units 16:14 21:23 03:39 Hgb 11.0 L (11.8-15.2) gm/dl Hct 32.3 L (35.5-45.6) % MCV 71 L (84-94) fl MCH 24 L (28-32) pg Glucose (75-100) mg/dL POC Glucose 194 H 146 H (70-105) mg/dL 04/01/21 04/01/21 04/01/21 Range/Units 03:39 07:41 11:42 Hgb (11.8-15.2) gm/dl Hct (35.5-45.6) % MCV (84-94) fl MCH (28-32) pg Glucose 231 H (75-100) mg/dL POC Glucose 186 H 179 H (70-105) mg/dL
[2021-04-01] MEDS: metroNIDAZOLE/NS 500 MG/100 ML 500 MG/100 ML BAG IV SCH (16:00)
--- NOTE | 2021-04-01 16:30 | Operative Report ---
Operative Report Operative Report: EXAM: 1. Ultrasound-guided access of the left common femoral artery. 2. Angiography of the left lower extremity. 3. Selection of the abdominal aorta with angiography. 4. Selection of the right external iliac artery, superficial femoral artery, and popliteal artery with angiography of the right lower extremity. 5. Selection of the right anterior tibial artery and dorsalis pedis artery. 6. Crossing the chronic total occlusion of the proximal dorsalis pedis vessel. 7. Atherectomy of the right dorsalis pedis artery with a 1.25 solid CSI atherectomy device with angioplasty with a 2 mm x 40 mm angioplasty balloon and 2.5 mm x 80 mm angioplasty balloon. 8. Angioplasty of the right proximal anterior tibial artery with a 4 mm x 40 mm angioplasty balloon. 9. Injection of numerous amounts of nitroglycerin 10. Closure of the left common femoral artery with a 6 [place] ProGlide. DATE: 04/01/2021 SPECIAL EVENTS DRIVER: ALYX LIN MD INDICATION: Critical limb ischemia of the right first digit with nonhealing wound and abnormal physical exam MEDICATIONS: Please see nursing report for full details. DEVICES: 2 mm x 40 mm Kathy cross balloon 2.5 mm x 80 mm Kathy cross balloon 4 mm x 40 mm Kathy cross balloon 1.25 solid CSI atherectomy device CONTRAST: Please see Zoology Professor report for full details PROCEDURE: The risks, benefits, and alternatives were discussed with the patient; written informed consent was obtained. The patient was brought to the angiography suite and both groins were prepped and draped in a sterile fashion. Ultrasound was used to evaluate the left common femoral artery which was patent. Under direct ultrasound guidance, the left common femoral artery was accessed with a 21-gauge micropuncture needle. 0.018 inch wire was passed into the aorta. Needle was exchanged for transitional dilator. Wire was exchanged for 0.035 inch wire. Transitional dilator exchanged for 5 [place]ander sheath. Digital subtraction angiography was performed demonstrating an appropriate puncture, above the bifurcation below the inferior epigastric artery. The left common femoral artery, proximal superficial femoral artery, and proximal profunda femoral artery are patent. The abdominal aorta was selected and digital subtraction angiography was performed demonstrating patency of the infrarenal abdominal aorta, bilateral common iliac arteries, internal iliac arteries, and external iliac arteries. The right common femoral artery was selected and digital subtraction angiography was performed. The right superficial femoral artery was selected and digital subtraction angiography was performed. The right popliteal artery was selected and digital subtraction angiography was performed. Digital subtraction angiography demonstrated patency of the right common femoral artery, superficial femoral artery, and profunda femoral artery. The right popliteal artery was patent. The posterior tibial artery was the dominant flow to the foot and was patent to the level of the ankle. There was a 50% plaque in the common plantar artery, and a 50% stenosis in the proximal lateral plantar artery. These vessels provide her the most dominant flow to the foot. The tibioperoneal trunk was patent. The peroneal artery was patent. The anterior tibial artery proximally had a 50 to 60% stenosis and the proximal dorsalis pedis artery was occluded with immediate reconstitution afterwards. Patient was heparinized sheath was exchanged for 6 [place]ander 90 cm [place] destination positioned in the right popliteal artery. The anterior tibial artery was selected and wire and catheter used to cross the chronic total occlusion of the dorsalis pedis artery. Had first a 2 mm x 40 mm angioplasty balloon and a 2.5 mm x 80 mm angioplasty balloon was used to predilate the dorsalis pedis, but this required high pressures and provided an inadequate angiographic result. Wire was then exchanged for a [employer] wire. 1.25 solid CSI atherectomy device was then run at low and medium settings in the proximal dorsalis pedis artery and afterwards a 2.5 mm x 80 mm angioplasty balloon was used to post dilate the vessel. 4 mm x 40 mm angioplasty balloon was used to perform angioplasty of the proximal right anterior tibial artery. Repeat digital subtraction angiography demonstrated no residual narrowing of the anterior tibial artery and less than 10% residual stenosis of the dorsalis pedis vessel. During this procedure nitroglycerin was administered intravascularly multiple times. Once the procedure was concluded, all wires, catheters, and sheaths were retracted to the left external iliac artery. Wire was passed centrally. The sheath was exchanged for 6 [place] ProGlide which was used to close the arteriotomy achieving immediate hemostasis. Sterile dressing and pressure bandage applied. Patient was loaded with aspirin and Plavix. Patient tolerated the procedure well. No immediate postprocedural complications. FINDINGS: Please see procedure note above IMPRESSION: Successful atherectomy and angioplasty of the right anterior tibial artery and dorsalis pedis vessel.
[2021-04-01] MEDS: CEFEPIME/NS 2 GM/100 ML 2 GM/100 ML BAG IV SCH (17:38)
[2021-04-01] MEDS: oxyCODONE /ACETAMINOPHEN 5-325MG TAB PO PRN (21:11)
[2021-04-02] MEDS: INSULIN GLARGINE 100 UNITS/ML SUB-Q SCH ×2 (01:06→21:21)
[2021-04-02] MEDS: metroNIDAZOLE/NS 500 MG/100 ML 500 MG/100 ML BAG IV SCH ×3 (04:50→16:00)
[2021-04-02] MEDS: CEFEPIME/NS 2 GM/100 ML 2 GM/100 ML BAG IV SCH ×2 (05:34→17:26)
[2021-04-02] MEDS: HEPARIN 5,000 UNIT/1 ML VIAL SUB-Q SCH ×3 (05:44→21:21)
[2021-04-02 06:33] LABS: Hematocrit 31.2 % (35.5-45.6); Hemoglobin 10.5 gm/dl (11.8-15.2); Mean Corpuscular HGB Conc 34 % (32-34); Mean Corpuscular Volume 72 fl (84-94); Platelet Count 176 K/mm3 (140-440); Red Blood Count 4.37 M/mm3 (3.65-5.03); Red Cell Distribution Width 13.1 % (13.2-15.2)
[2021-04-02 06:52] LABS: BUN/Creatinine Ratio 10; Blood Urea Nitrogen 9 mg/dL (9-20); Hemolysis Index 1
[2021-04-02] MEDS: INSULIN LISPRO 100 UNIT/ML SUB-Q SCH ×7 (07:30→23:36)
[2021-04-02] MEDS: VANCOMYCIN 1,500 MG in SODIUM CHLORIDE 0.9% 500 ML 500 ML IV SCH ×2 (07:47→18:21)
--- NOTE | 2021-04-02 09:13 | Progress Note ---
Assessment and Plan - Patient Problems (1) Other chronic osteomyelitis, right ankle and foot Current Visit: Yes Status: Acute Plan to address problem: 1) Pt needs drainage of the medial toe abscess. We discussed 6 wks of IV antibiotic treatment vs TMA of the right great toe. He desires to proceed with amputation. Will perform TMA today. Subjective Date of service: 04/02/21 Patient Reports: Positive: no new complaints Objective Vital Signs - 12hr 04/01/21 04/01/21 04/01/21 21:11 22:11 23:05 Temperature 98.9 F Pulse Rate 81 Respiratory 17 17 18 Rate Blood Pressure 129/58 O2 Sat by Pulse 94 Oximetry 04/02/21 04/02/21 05:31 08:34 Temperature Pulse Rate 79 Respiratory 18 Rate Blood Pressure 126/69 O2 Sat by Pulse 96 96 Oximetry - Integumentary other (Right great toe is edematous and inflammed. There is pus exuding from the medial right great toe at the IP joint. Right DP is 2+.) - Labs 04/02/21 06:04 04/02/21 06:04 Diabetes panel 04/02/21 Range/Units 06:04 Sodium 140 (137-145) mmol/L Potassium 4.2 (3.6-5.0) mmol/L Chloride 105.1 (98-107) mmol/L Carbon Dioxide 29 (22-30) mmol/L BUN 9 (9-20) mg/dL Creatinine 0.9 (0.8-1.3) mg/dL Glucose 180 H (75-100) mg/dL Calcium 9.0 (8.4-10.2) mg/dL Calcium panel 04/02/21 Range/Units 06:04 Calcium 9.0 (8.4-10.2) mg/dL Pituitary panel 04/02/21 Range/Units 06:04 Sodium 140 (137-145) mmol/L Potassium 4.2 (3.6-5.0) mmol/L Chloride 105.1 (98-107) mmol/L Carbon Dioxide 29 (22-30) mmol/L BUN 9 (9-20) mg/dL Creatinine 0.9 (0.8-1.3) mg/dL Glucose 180 H (75-100) mg/dL Calcium 9.0 (8.4-10.2) mg/dL Adrenal panel 04/02/21 Range/Units 06:04 Sodium 140 (137-145) mmol/L Potassium 4.2 (3.6-5.0) mmol/L Chloride 105.1 (98-107) mmol/L Carbon Dioxide 29 (22-30) mmol/L BUN 9 (9-20) mg/dL Creatinine 0.9 (0.8-1.3) mg/dL Glucose 180 H (75-100) mg/dL Calcium 9.0 (8.4-10.2) mg/dL - Imaging Additional Studies: MRI of right foot was reviewed.
[2021-04-02] MEDS: ONDANSETRON 4 MG/2 ML INJ IV PRN (10:23)
[2021-04-02] MEDS ORDERED: LACTATED RINGERS 1,000 ML IV SCH (10:30)
[2021-04-02] MEDS ORDERED: HYDROmorphone 1 MG/1 ML INJ IV PRN (10:53)
[2021-04-02] MEDS ORDERED: ONDANSETRON 4 MG/2 ML INJ IV PRN ×2 (10:53→14:00)
--- NOTE | 2021-04-02 10:55 | Anesthesia Consultation ---
Anesthesia Consult and Med Hx Date of service: 04/02/21 - Airway Anesthetic Teeth Evaluation: Good ROM Head & Neck: Adequate Mental/Hyoid Distance: Adequate Mallampati Class: Class I Intubation Access Assessment: Good - Pre-Operative Health Status ASA Pre-Surgery Classification: ASA3 Proposed Anesthetic Plan: General - Pulmonary Hx Smoking: No Hx Respiratory Symptoms: No - Cardiovascular System Hx Hypertension: Yes Hx Heart Attack/AMI: No Hx Peripheral Vascular Disease: Yes (w/ right foot osteomyelitis) - Central Nervous System CVA: No - Endocrine Hx Renal Disease: No Hx Liver Disease: No Hx Insulin Dependent Diabetes: Yes Hx Thyroid Disease: No - Other Systems Hx Obesity: No - Additional Comments Anesthesia Medical History Comments: Remote hx PONV but no issues with more recent anesthetics.
--- NOTE | 2021-04-02 10:55 | Anesthesia Day of Surgery ---
Anesthesia Day of Surgery - Day of Surgery Patient Examined: Yes Patient H&P Reviewed: Yes Patient is NPO: Yes
[2021-04-02] MEDS ORDERED: MIDAZOLAM 2 MG/2 ML INJ IV NR (11:00)
[2021-04-02] MEDS ORDERED: LIDOCAINE PF 100 MG/5 ML (CARDIAC SYRINGE) IV ONE (11:01)
[2021-04-02] MEDS ORDERED: propofoL 200 MG/20 ML VIAL IV ONE (11:02)
[2021-04-02] MEDS ORDERED: fentaNYL 100 MCG/2 ML INJ ONE (11:02)
[2021-04-02] MEDS ORDERED: PHENYLEPHRINE/NS 1,000 MCG/10 ML SYRINGE (OR USE) IV ONE (11:20)
[2021-04-02] MEDS ORDERED: SODIUM CHLORIDE 0.9% IRR 1,000 ML BOTTLE IR ONE (11:36)
[2021-04-02] MEDS ORDERED: HYDROmorphone 1 MG/1 ML INJ ONE (11:44)
[2021-04-02] MEDS ORDERED: ONDANSETRON 4 MG/2 ML INJ ONE (12:04)
--- NOTE | 2021-04-02 12:16 | Procedure Note ---
Date of procedure: 04/02/21 Pre-op diagnosis: Osteomyelitis, right great toe Post-op diagnosis: same Procedure: Right great toe TMA Description of procedure: Pt was placed supine on the OR table. General anesthesia was administered. Right foot was prepped and draped. A tear drop incision was made about the toe and the toe amputated at the MTP joint. Hemostasis was obtained with the Bovie. Periosteum was elevated off of the distal metaphyseal shaft and the distal metaphysis amputated with a bone saw. Tendons were maximally retracted and amputated. Wound was irrigated with warm saline and the wound loosely closed with 3 interrupted vertical mattress sutures of 3-0 Nylon. Wound was packed open between the sutures with a dilute Betadine moistened Kerlix roll. This was followed by dry 4 X 4's, Kerlix wrap and Coban wrap. Pt tolerated the procedure well. Pt was taken to PACU in stable condition. Anesthesia: other (LMA) Surgeon: GAEL HALE Estimated blood loss: 50-100ml Pathology: list (1) Right great toe 2) Right 1st metatarsal head) Specimen disposition: to lab Condition: stable Disposition: PACU
[2021-04-02] MEDS: ASPIRIN EC 81 MG TAB PO SCH (13:24)
[2021-04-02] MEDS: oxyCODONE /ACETAMINOPHEN 5-325MG TAB PO PRN (13:24)
[2021-04-02] MEDS: FAMOTIDINE 20 MG TAB PO SCH ×2 (13:25→21:21)
[2021-04-02] MEDS: CLOPIDOGREL 75 MG TAB PO SCH (13:25)
--- NOTE | 2021-04-02 13:56 | Post Anesthesia Evaluation ---
- Post Anesthesia Evaluation Patient Participated: Yes Airway Patent: Yes Stable Respiratory Function: Yes Nausea/Vomiting: No Temp > 96.8F: Yes Pain Manageable: Yes Adequeate Hydration: Yes Anesthesia Complications: No
[2021-04-02] MEDS: diphenhydrAMINE 50 MG/ML VIAL IV PRN (14:04)
--- NOTE | 2021-04-02 14:33 | Progress Note ---
Assessment and Plan Cultures: Blood culture 03/30/2021 no growth today Assessment: 60-year-old male with history of diabetes mellitus, uncontrolled, diabetic neuropathy, admitted on 03/29/2021 secondary to 3-week history of right great toe pain, edema and purulent drainage: #Fever: likely due to foot infection #Right foot diabetic ulcer with cellulitis/abscess/osteomyelitis: MRI shows plantar ulcer at the medial aspect of the great toe with an abscess 1.4x0.8 x 1.5 cm and osteomyelitis. S/p Right great toe TMA today. #Peripheral vascular disease: Arterial ultrasound abnormal. Status post angioplasty. #Diabetes mellitus: Uncontrolled Recommendations: -S/p right great toe transmetatarsal amputation -Continue cefepime and Flagyl -Continue vancomycin IV with PK consult for now -f/u histopath -Keep vancomycin trough between 10 and 20 -Vascular to do angio -ID clinic follow-up in 2 weeks Okay to discharge tomorrow on Augmentin 875 mg p.o. twice daily and doxycycline 100 mg p.o. twice daily for total 7 days till 04/09 We will sign off call us if any question Eri Ferguson MD Infectious Diseases Slater Apprentice [facility] ([facility]) M [phone] O [phone] Subjective Principal diagnosis: PVD with first toe wound right foot Objective - Constitutional Vitals: Vital Signs Temp Pulse Resp BP Pulse Ox 98.2 F 81 18 150/86 96 04/02/21 13:00 04/02/21 13:00 04/02/21 13:00 04/02/21 13:00 04/02/21 13:00 Temperature -Last 24 Hours Temperature 98.2 F Temperature 98.2 F Temperature 99.1 F Temperature 98.9 F Temperature 98.2 F - Labs CBC & Chem 7: 04/02/21 06:04 04/02/21 06:04 Labs: Abnormal lab results 04/01/21 04/01/21 04/02/21 Range/Units 17:21 23:08 06:04 Hgb 10.5 L (11.8-15.2) gm/dl Hct 31.2 L (35.5-45.6) % MCV 72 L (84-94) fl MCH 24 L (28-32) pg RDW 13.1 L (13.2-15.2) % Glucose (75-100) mg/dL POC Glucose 132 H 175 H (70-105) mg/dL 04/02/21 04/02/21 04/02/21 Range/Units 06:04 07:47 10:30 Hgb (11.8-15.2) gm/dl Hct (35.5-45.6) % MCV (84-94) fl MCH (28-32) pg RDW (13.2-15.2) % Glucose 180 H (75-100) mg/dL POC Glucose 189 H 150 H (70-105) mg/dL 04/02/21 Range/Units 12:24 Hgb (11.8-15.2) gm/dl Hct (35.5-45.6) % MCV (84-94) fl MCH (28-32) pg RDW (13.2-15.2) % Glucose (75-100) mg/dL POC Glucose 154 H (70-105) mg/dL
--- NOTE | 2021-04-02 19:25 | Progress Note ---
Assessment and Plan - Patient Problems (1) Other chronic osteomyelitis, right ankle and foot Current Visit: Yes Status: Acute Plan to address problem: MRI shows early osteomyelitis, Surgery team consulted, IV antibiotic therapy, ID service consulted. D/C planning in am with oral antibiotic therapy. (2) Cellulitis of toe of right foot Current Visit: Yes Status: Acute Plan to address problem: IV antibiotic therapy, supportive care. (3) Diabetes Current Visit: No Status: Acute Plan to address problem: Consistent carbohydrate diet, accu check, insulin protocol. (4) DVT prophylaxis Current Visit: Yes Status: Acute Plan to address problem: SCD to BLE while in bed. History Interval history: 60 YO Male HD #3 with Early Osteomyelitis, Right foot cellulitis and abscess, DM S/P TMA. No reported nursing events. Hospitalist Physical - Constitutional Vitals: Temp Pulse Resp BP Pulse Ox 98.0 F 74 18 143/83 98 04/02/21 16:25 04/02/21 16:25 04/02/21 16:25 04/02/21 16:25 04/02/21 16:25 General appearance: Present: no acute distress - EENT Eyes: Present: PERRL, EOM intact ENT: hearing intact - Neck Neck: Present: supple - Respiratory Respiratory effort: normal Respiratory: bilateral: CTA - Cardiovascular Rhythm: regular Heart Sounds: Present: S1 & S2 - Extremities Extremity abnormal: edema Peripheral Pulses: within normal limits - Abdominal General gastrointestinal: soft, non-tender, non-distended - Integumentary Integumentary: Present: clear, dry - Psychiatric Psychiatric: appropriate mood/affect, cooperative - Neurologic Neurologic: CNII-XII intact Results - Labs CBC & Chem 7: 04/02/21 06:04 04/02/21 06:04 Labs: Laboratory Last Values WBC 5.3 K/mm3 (4.5-11.0) 04/02/21 06:04 RBC 4.37 M/mm3 (3.65-5.03) 04/02/21 06:04 Hgb 10.5 gm/dl (11.8-15.2) L 04/02/21 06:04 Hct 31.2 % (35.5-45.6) L 04/02/21 06:04 MCV 72 fl (84-94) L 04/02/21 06:04 MCH 24 pg (28-32) L 04/02/21 06:04 MCHC 34 % (32-34) 04/02/21 06:04 RDW 13.1 % (13.2-15.2) L 04/02/21 06:04 Plt Count 176 K/mm3 (140-440) 04/02/21 06:04 Lymph % (Auto) 16.1 % (13.4-35.0) 03/31/21 03:39 Banks % (Auto) 10.5 % (0.0-7.3) H 03/31/21 03:39 Eos % (Auto) 3.4 % (0.0-4.3) 03/31/21 03:39 Baso % (Auto) 0.9 % (0.0-1.8) 03/31/21 03:39 Lymph # (Auto) 0.9 K/mm3 (1.2-5.4) L 03/31/21 03:39 Banks # (Auto) 0.6 K/mm3 (0.0-0.8) 03/31/21 03:39 Eos # (Auto) 0.2 K/mm3 (0.0-0.4) 03/31/21 03:39 Baso # (Auto) 0.0 K/mm3 (0.0-0.1) 03/31/21 03:39 Seg Neutrophils % 69.1 % (40.0-70.0) 03/31/21 03:39 Seg Neutrophils # 3.7 K/mm3 (1.8-7.7) 03/31/21 03:39 D-Dimer 187.58 ng/mlDDU (0-234) 03/30/21 09:08 Sodium 140 mmol/L (137-145) 04/02/21 06:04 Potassium 4.2 mmol/L (3.6-5.0) 04/02/21 06:04 Chloride 105.1 mmol/L (98-107) 04/02/21 06:04 Carbon Dioxide 29 mmol/L (22-30) 04/02/21 06:04 Anion Gap 10 mmol/L 04/02/21 06:04 BUN 9 mg/dL (9-20) 04/02/21 06:04 Creatinine 0.9 mg/dL (0.8-1.3) 04/02/21 06:04 Estimated GFR > 60 ml/min 04/02/21 06:04 BUN/Creatinine Ratio 10 % 04/02/21 06:04 Glucose 180 mg/dL (75-100) H 04/02/21 06:04 POC Glucose 161 mg/dL (70-105) H 04/02/21 16:23 Hemoglobin A1c 10.9 % (4-6) H 03/30/21 13:56 Lactic Acid 1.50 mmol/L (0.7-2.0) 03/29/21 23:59 Calcium 9.0 mg/dL (8.4-10.2) 04/02/21 06:04 Total Bilirubin 1.30 mg/dL (0.1-1.2) H 03/29/21 23:59 AST 40 units/L (5-40) 03/29/21 23:59 ALT 32 units/L (7-56) 03/29/21 23:59 Alkaline Phosphatase 198 units/L (35-129) H 03/29/21 23:59 Total Protein 7.8 g/dL (6.3-8.2) 03/29/21 23:59 Albumin 4.0 g/dL (3.9-5) 03/29/21 23:59 Albumin/Globulin Ratio 1.1 % 03/29/21 23:59 Vancomycin Trough 10.9 ug/mL (5.0-20.0) 04/02/21 06:04 Microbiology: Microbiology 03/29/21 23:59 Peripheral/Venous Blood Culture - Preliminary NO GROWTH AFTER 72 HOURS 03/30/21 00:49 Peripheral/Venous Blood Culture - Preliminary NO GROWTH AFTER 72 HOURS Carmichael/IV: Voiding Method Toilet Active Medications - Current Medications Current Medications: Generic Name Dose Route Start Last Admin Trade Name Freq PRN Reason Stop Dose Admin Acetaminophen 650 mg 03/30/21 05:00 04/01/21 00:31 Acetaminophen 325 Mg Tab PO 650 mg Q4H PRN Administration Pain MILD(1-3)/Fever >100.5/LUNA Albuterol 2.5 mg 03/30/21 05:00 Albuterol 2.5 Mg/3 Ml Nebu IH Q4HRT PRN Shortness Of Breath Aspirin 81 mg 04/02/21 10:00 04/02/21 13:24 Aspirin Ec 81 Mg Tab PO 81 mg QDAY SIRENA Administration Clopidogrel Bisulfate 75 mg 04/02/21 10:00 04/02/21 13:25 Clopidogrel 75 Mg Tab PO 75 mg QDAY SIRENA Administration Dextrose 50 ml 03/30/21 05:00 Dextrose 50% In Water (25gm) 50 Ml Syringe IV Q30MIN PRN Hypoglycemia Protocol Diphenhydramine HCl 25 mg 04/02/21 13:52 04/02/21 14:04 Diphenhydramine 50 Mg/Ml Vial IV 25 mg Q6H PRN Administration Itching Famotidine 20 mg 03/30/21 10:00 04/02/21 13:25 Famotidine 20 Mg Tab PO 20 mg BID SIRENA Administration Heparin Sodium (Porcine) 5,000 unit 03/30/21 06:00 04/02/21 16:16 Heparin 5,000 Unit/1 Ml Vial SUB-Q Not Given Q8HR SIRENA Hydromorphone HCl 0.5 mg 03/30/21 05:00 03/31/21 13:39 Hydromorphone 1 Mg/1 Ml Inj IV 0.5 mg Q3H PRN Administration Pain , Severe (7-10) Hydromorphone HCl 0.5 mg 04/02/21 10:53 Hydromorphone 1 Mg/1 Ml Inj IV 04/02/21 20:00 Q10MIN PRN Pain , Severe (7-10) Vancomycin HCl 1,500 mg/ 530 mls @ 333.333 mls/hr 03/30/21 18:00 04/02/21 18:21 Sodium Chloride IV 333.333 mls/hr Q12H SIRENA Administration Cefepime HCl 2 gm in 100 mls @ 200 mls/hr 04/01/21 17:00 04/02/21 17:26 Cefepime/Ns 2 Gm/100 Ml IV 200 mls/hr Q12H [facility] Administration Protocol Metronidazole 500 mg in 100 mls @ 100 mls/hr 04/01/21 16:00 04/02/21 16:00 Flagyl 500 Mg/100 Ml IV 100 mls/hr Q8H SIRENA Administration Protocol Insulin Glargine 10 units 03/30/21 22:00 04/02/21 01:06 Insulin Glargine 100 Units/Ml SUB-Q Not Given QHS [facility] Insulin Human Lispro 0 unit 03/30/21 07:30 04/02/21 16:30 Insulin Lispro 100 Unit/Ml SUB-Q 2 unit ACHS SIRENA Administration Protocol Insulin Human Lispro 10 unit 03/30/21 16:30 04/02/21 16:30 Insulin Lispro 100 Unit/Ml SUB-Q 10 unit AC SIRENA Administration Methocarbamol 750 mg 03/30/21 05:03 Methocarbamol 750 Mg Tab PO Q8H PRN Spasms Midazolam HCl 2 mg 04/02/21 11:00 Midazolam 2 Mg/2 Ml Inj IV 04/02/21 23:59 PREOP NR Ondansetron HCl 4 mg 03/30/21 05:00 04/02/21 10:23 Ondansetron 4 Mg/2 Ml Inj IV 4 mg Q8H PRN Administration Nausea And Vomiting Ondansetron HCl 4 mg 04/02/21 14:00 Ondansetron 4 Mg/2 Ml Inj IV Q8H PRN naus Oxycodone/Acetaminophen 1 tab 03/30/21 05:00 04/02/21 13:24 Oxycodone /Acetaminophen 5-325mg Tab PO 1 tab Q6H PRN Administration Pain, Moderate (4-6) Sodium Chloride 10 ml 03/30/21 10:00 04/02/21 10:09 Sodium Chloride 0.9% 10 Ml Flush Syringe IV 10 ml BID SIRENA Administration Sodium Chloride 10 ml 03/30/21 05:00 Sodium Chloride 0.9% 10 Ml Flush Syringe IV PRN PRN LINE FLUSH Nutrition/Malnutrition Assess - Dietary Evaluation Nutrition/Malnutrition Findings: Nutrition Notes Start: 03/30/21 10:21 Freq: Status: Active Protocol: Document 03/30/21 10:21 DELFINO (Rec: 03/30/21 10:23 [facility] [id number]) Nutrition Notes Need for Assessment generated from: MD Order,Education Initial or Follow up Brief Note Current Diagnosis Diabetes Other Pertinent Diagnosis (R) great toe cellulitis, Diabetic neuropathy Current Diet Consistent CHO Subjective/Other Information RD consulted for diet education. Pt in ED at this time. Minimum of two criteria No Nutrition Intervention Follow-Up By: 04/04/21 Additional Comments F/U: transfer to medical floor , diet education needs
[2021-04-03] MEDS: metroNIDAZOLE/NS 500 MG/100 ML 500 MG/100 ML BAG IV SCH ×3 (00:03→18:32)
[2021-04-03] MEDS: ONDANSETRON 4 MG/2 ML INJ IV PRN (00:03)
[2021-04-03] MEDS: diphenhydrAMINE 50 MG/ML VIAL IV PRN (00:30)
[2021-04-03] MEDS: CEFEPIME/NS 2 GM/100 ML 2 GM/100 ML BAG IV SCH ×2 (05:37→18:29)
[2021-04-03] MEDS: HEPARIN 5,000 UNIT/1 ML VIAL SUB-Q SCH ×3 (06:34→23:58)
[2021-04-03] MEDS: VANCOMYCIN 1,500 MG in SODIUM CHLORIDE 0.9% 500 ML 500 ML IV SCH ×2 (06:39→18:28)
[2021-04-03] MEDS: INSULIN LISPRO 100 UNIT/ML SUB-Q SCH ×7 (09:06→23:59)
[2021-04-03] MEDS: ACETAMINOPHEN 325 MG TAB PO PRN (09:07)
[2021-04-03] MEDS: ASPIRIN EC 81 MG TAB PO SCH (09:07)
[2021-04-03] MEDS: FAMOTIDINE 20 MG TAB PO SCH ×2 (09:08→23:58)
[2021-04-03] MEDS: CLOPIDOGREL 75 MG TAB PO SCH (09:08)
--- NOTE | 2021-04-03 12:58 | Discharge Summary ---
Providers - Providers Date of Admission: 03/31/21 13:23 Attending physician: NINI MCGUIRE 03/30/21 05:00 Consult to Dietitian/Nutrition [CONS] Routine Physician Instructions: Reason For Exam: Reason for Consult: Diet education Consult to Physician [CONS] Routine Comment: Consulting Provider: ALYX PACE Physician Instructions: Reason For Exam: Cellulitis of the right toe 03/30/21 05:16 Consult to Wound/ET Nurse [CONS] Routine Reason For Exam: wound eval 03/30/21 08:46 Consult to Physician [CONS] Routine Comment: Consulting Provider: VELASQUEZ CHILDRESS Physician Instructions: Reason For Exam: Cellulitis right great toe 03/30/21 13:09 Consult to Physician [CONS] Routine Comment: Consulting Provider: GAEL HALE Physician Instructions: Reason For Exam: Cellulitis, Ulcer right big toe 03/31/21 14:43 Consult to Case Management [CONS] Routine Services Needed at Discharge: Home Health Services Notified:: n/a Primary care physician: CLARISSA KHAN MD Hospitalization Condition: Stable Disposition: 30 STILL A PATIENT - Discharge Diagnoses (1) Other chronic osteomyelitis, right ankle and foot Status: Acute (2) Cellulitis of toe of right foot Status: Acute (3) Diabetes Status: Acute (4) DVT prophylaxis Status: Acute Exam - Constitutional Vitals: Temp Pulse Resp BP Pulse Ox 98.0 F 74 18 143/83 96 04/02/21 16:25 04/02/21 16:25 04/02/21 16:25 04/02/21 16:25 04/02/21 21:00 Plan Follow up with: CLARISSA KHAN MD [Primary Care Provider] - 7 Days
--- NOTE | 2021-04-03 14:47 | Progress Note ---
Assessment and Plan Cultures: Blood culture 03/30/2021 no growth today Assessment: 60-year-old male with history of diabetes mellitus, uncontrolled, diabetic neuropathy, admitted on 03/29/2021 secondary to 3-week history of right great toe pain, edema and purulent drainage: #Fever: likely due to foot infection #Right foot diabetic ulcer with cellulitis/abscess/osteomyelitis: MRI shows plantar ulcer at the medial aspect of the great toe with an abscess 1.4x0.8 x 1.5 cm and osteomyelitis. S/p Right great toe TMA today. #Peripheral vascular disease: Arterial ultrasound abnormal. Status post angioplasty. #Diabetes mellitus: Uncontrolled #N/V: likely post anesthesia related Recommendations: -f/u histopath -ID clinic follow-up in 2 weeks -OK to dc on Augmentin 875 mg p.o. twice daily and doxycycline 100 mg p.o. twice daily for total 7 days till 04/09 We will sign off call us if any question Eri Ferguson MD Infectious Diseases [employer] [facility] ([facility]) M [phone] O [phone] Subjective Date of service: 04/03/21 Principal diagnosis: PVD with first toe wound right foot Interval history: Feels okay, except for night and severe surg site pain, no fever Objective - Exam Narrative Exam: General appearance: Alert in NAD pleasant Eyes: anicteric sclerae, moist conjunctivae; no lid-lag; PERRLA HENT: Normocephalic, Atraumatic; normal external ears, nares open, oropharynx clear Neck: supple, tracheal midline, no JVD Lungs: CTA, with normal respiratory effort and no intercostal retractions CV: RRR no murmur Abdomen: Soft, non-tender; no masses or hepatosplenomegaly Extremities: Right great toe with surgical dressings Skin: No rash. Psych: no agitated Neuro: alert and oriented x 3. Moving all extermities - Constitutional Vitals: Vital Signs Temp Pulse Resp BP Pulse Ox 98.4 F 73 22 151/63 96 04/03/21 11:30 04/03/21 11:30 04/03/21 11:30 04/03/21 11:30 04/03/21 11:30 Temperature -Last 24 Hours Temperature 98.4 F Temperature 99.3 F Temperature 98.5 F Temperature 98.0 F - Labs CBC & Chem 7: 04/02/21 06:04 04/02/21 06:04 Labs: Abnormal lab results 04/02/21 04/02/21 04/03/21 Range/Units 16:23 21:23 07:38 POC Glucose 161 H 181 H 170 H (70-105) mg/dL 04/03/21 Range/Units 11:28 POC Glucose 151 H (70-105) mg/dL
[2021-04-03] MEDS: oxyCODONE /ACETAMINOPHEN 5-325MG TAB PO PRN (18:33)
[2021-04-03] MEDS: INSULIN GLARGINE 100 UNITS/ML SUB-Q SCH (23:58)
[2021-04-04] MEDS: oxyCODONE /ACETAMINOPHEN 5-325MG TAB PO PRN ×2 (00:01→14:20)
[2021-04-04] MEDS: metroNIDAZOLE/NS 500 MG/100 ML 500 MG/100 ML BAG IV SCH ×2 (05:46→08:41)
[2021-04-04] MEDS: HEPARIN 5,000 UNIT/1 ML VIAL SUB-Q SCH (05:46)
[2021-04-04] MEDS: CEFEPIME/NS 2 GM/100 ML 2 GM/100 ML BAG IV SCH (06:13)
[2021-04-04] MEDS: VANCOMYCIN 1,500 MG in SODIUM CHLORIDE 0.9% 500 ML 500 ML IV SCH (06:13)
[2021-04-04] MEDS: INSULIN LISPRO 100 UNIT/ML SUB-Q SCH ×3 (06:35→11:30)
[2021-04-04 07:09] LABS: BUN/Creatinine Ratio 11; Blood Urea Nitrogen 9 mg/dL (9-20); Calcium 9.3 mg/dL (8.4-10.2); Hemolysis Index 4
[2021-04-04] MEDS: CLOPIDOGREL 75 MG TAB PO SCH (09:59)
[2021-04-04] MEDS: ASPIRIN EC 81 MG TAB PO SCH (09:59)
[2021-04-04] MEDS: FAMOTIDINE 20 MG TAB PO SCH (09:59)
[2021-04-04] MEDS ORDERED: DOXYCYCLINE 100 MG CAP PO SCH (10:00)
[2021-04-04] MEDS ORDERED: AMOXICILLIN/K CLAV 875/125MG TAB PO SCH (10:00)
[2021-04-04 14:59] VITALS: BP 146/77
== END 2021-04-04 15:15 | disposition home health service (06) | DRG 617 ==
LOC: ED 21:59 → 4A 03-30 03:03 → 3A 03-31 00:03 → OBSVTOIN 03-31 13:23
PROVIDERS: ADMIT Hospitalist; ATTEND Internal Medicine
PROC: 047P3ZZ Dilation of Right Anterior Tibial Artery, Percutaneous Approach (ICD-10-PCS; principal; 2021-04-01)
PROC: 04CV3ZZ Extirpation of Matter from Right Foot Artery, Percutaneous Approach (ICD-10-PCS; 2021-04-01)
PROC: B44LZZ3 Ultrasonography of Femoral Artery, Intravascular (ICD-10-PCS; 2021-04-01)
PROC: B41D1ZZ Fluoroscopy of Aorta and Bilateral Lower Extremity Arteries using Low Osmolar Contrast (ICD-10-PCS; 2021-04-01)
PROC: 0Y6M0Z9 Detachment at Right Foot, Partial 1st Ray, Open Approach (ICD-10-PCS; 2021-04-02)
DX: E11.69 Type 2 diabetes mellitus with other specified complication (principal); L02.611 Cutaneous abscess of right foot; M86.671 Other chronic osteomyelitis, right ankle and foot; E11.51 Type 2 diabetes mellitus with diabetic peripheral angiopathy without gangrene; E11.628 Type 2 diabetes mellitus with other skin complications; L03.031 Cellulitis of right toe; E11.65 Type 2 diabetes mellitus with hyperglycemia; E11.40 Type 2 diabetes mellitus with diabetic neuropathy, unspecified; Z79.4 Long term (current) use of insulin; E11.621 Type 2 diabetes mellitus with foot ulcer; L97.519 Non-pressure chronic ulcer of other part of right foot with unspecified severity; I70.235 Atherosclerosis of native arteries of right leg with ulceration of other part of foot
CPT/HCPCS: 36415; 37228; 37229; 75625; 75710; 75774; 76937; 80048; 80053; 80202; 82140; 82962; 83036; 85025; 85027; 85379; 87040; 88304; 88305; 88311; 93922; 93925; 94640; 96365; 96372; 96375; G0378; A9575; C1724; C1725; C1760; C1769; C1887; J0295; J0692; J1170; J1200; J1644; J1815; J2001; J2250; J2370; J2405; J2704; J3010; J3370; J7030; J7040; J7120; Q9967

== ENCOUNTER 2021-05-24 14:56 | Inpatient (IN) | payer MEDICARE ==
[2021-05-24] MEDS ORDERED: DEXTROSE 50% IN WATER (25GM) 50 ML SYRINGE IV PRN (15:51)
[2021-05-24] MEDS ORDERED: POLYETHYLENE GLYCOL 3350 17 GM POWDER PO PRN (15:57)
[2021-05-24] MEDS ORDERED: hydrALAZINE 20 MG/1 ML INJ IV PRN (15:57)
[2021-05-24] MEDS ORDERED: SENNOSIDES 8.6 MG TAB PO PRN (15:57)
[2021-05-24] MEDS ORDERED: ONDANSETRON 4 MG ODT TAB PO PRN (15:57)
[2021-05-24] MEDS: INSULIN LISPRO 100 UNIT/ML SUB-Q SCH ×2 (17:32→21:54)
[2021-05-24] MEDS: oxyCODONE /ACETAMINOPHEN 5-325MG TAB PO PRN (20:48)
[2021-05-24] MEDS: DOCUSATE SODIUM 100 MG CAP PO SCH (21:53)
[2021-05-24] MEDS: traZODone 50 MG TAB PO SCH (21:53)
[2021-05-24] MEDS ORDERED: INSULIN GLARGINE 100 UNITS/ML SUB-Q SCH (22:00)
[2021-05-25] MEDS: oxyCODONE /ACETAMINOPHEN 5-325MG TAB PO PRN ×2 (05:30→20:23)
[2021-05-25 06:54] LABS: Basophils % (Auto) 0.3 % (0.0-1.8); Eosinophils # (Auto) 0.3 K/mm3 (0.0-0.4); Hematocrit 25.3 % (35.5-45.6); Hemoglobin 8.4 gm/dl (11.8-15.2); Lymphocytes # (Auto) 0.6 K/mm3 (1.2-5.4); Lymphocytes % (Auto) 7.1 % (13.4-35.0); Mean Corpuscular HGB Conc 33 % (32-34); Mean Corpuscular Volume 71 fl (84-94); Monocytes # (Auto) 0.7 K/mm3 (0.0-0.8); Monocytes % (Auto) 8.1 % (0.0-7.3); Platelet Count 161 K/mm3 (140-440); Red Blood Count 3.57 M/mm3 (3.65-5.03); Red Cell Distribution Width 15.8 % (13.2-15.2)
[2021-05-25 07:50] LABS: Alanine Aminotransferase 35 units/L (7-56); Albumin 3.2 g/dL (3.9-5); Blood Urea Nitrogen 11 mg/dL (9-20); Calcium 8.4 mg/dL (8.4-10.2); Hemolysis Index 1
[2021-05-25 07:54] LABS: BUN/Creatinine Ratio 16
--- NOTE | 2021-05-25 09:28 | History and Physical Report ---
History of Present Illness Date: 05/25/21 Date of admission: 05/24/21 16:59 Chief Complaint: Right BKA History of present illness: 60-year-old male with a history of a right diabetic foot ulcer which is previously under gone partial amputation. Patient developed continuing right foot pain and had a foul smelling wound. Work-up showed osteomyelitis on x-ray as well as MRI and antibiotics were started and surgery was consulted. Patient underwent debridement. Also underwent revascularization of the right lower extremity. 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 After the d efinitive treatment, infectious disease stated that the IV antibiotics could be stopped after 2 or 3 days postop. Wound cultures did grow out Proteus and beta- hemolytic strep group B. After the patient was medically stabilized they were transferred for further rehabilitation. All available medical records have been reviewed. Plan of care was discussed with patient. Patient does live in transitional housing and prior to acceptance to acute rehab we did confirm with the cost manager of the house that he would be able to move down onto the lower level and would be able to utilize a wheelchair. Over the past several days the patient's heart rate has been increasing and he has been tacky in the low [id number]. WBCs, although normal have also been elevating over the same time. And patient did spike a fever last night. Hemoglobin also dropped from 11.3-8.4. Due to these changes, we will restart antibiotics and continue for 3 days and monitor for improvement. We will also start IV fluids and a work-up for anemia. Patient is also been hypertensive on and off since admission with a previous high of 195/105, lisinopril has been started at a low dose and we will titrate up for effect. Dressing was changed during the physical exam and noted to have serosanguineous drainage at the lateral aspect of the amputation site. Past History Past Medical History: diabetes, hypertension, hyperlipidemia Past Surgical History: Other (Back surgery, foot surgery) Social history: other (Lives in a transitional house). denies: smoking, alcohol abuse Family history: hypertension Medications and Allergies Allergies Allergy/AdvReac Type Severity Reaction Status Date / Time No Known Allergies Allergy Verified 05/13/21 10:43 Home Medications Medication Instructions Recorded Confirmed Last Taken Type Insulin NPH Hum/Reg Insulin Hm 30 unit SQ TID 05/11/21 05/13/21 05/10/21 History [HumuLIN 70-30 Vial] Metformin HCl [metFORMIN] 1,000 mg PO BID 05/11/21 05/13/21 05/10/21 History Benztropine [Cogentin] 1 mg PO QHS 05/13/21 05/13/21 05/10/21 History DULoxetine [Cymbalta] 90 mg PO QAM 05/13/21 05/13/21 05/10/21 History FLUoxetine HCL [PROzac] 40 mg PO QAM 05/13/21 05/13/21 05/10/21 History Loxapine Succinate 150 mg PO QHS 05/13/21 05/13/21 05/10/21 History Prazosin HCl 2 mg PO QHS 05/13/21 05/13/21 05/10/21 History Quetiapine Fumarate [SEROquel] 400 mg PO QHS 05/13/21 05/13/21 05/10/21 History hydrOXYzine pamoate [Hydroxyzine 50 mg PO TID 05/13/21 05/13/21 05/10/21 History Pamoate] traZODone [Desyrel] 100 mg PO HS PRN 05/13/21 05/13/21 05/10/21 History Aspirin EC [Halfprin EC] 81 mg PO QDAY tablet 05/24/21 Unknown Rx AtorvaSTATin [Lipitor] 40 mg PO QHS tablet 05/24/21 Unknown Rx Clopidogrel [Plavix] 75 mg PO QDAY tablet 05/24/21 Unknown Rx HYDROmorphone [Dilaudid] 1 mg PO Q4HR PRN 3 Days #18 tablet 05/24/21 Unknown Rx Ketorolac [Toradol] 10 mg PO Q6H PRN 7 Days #28 tablet 05/24/21 Unknown Rx Oxycodone HCl/Acetaminophen 1 each PO Q6HR PRN 3 Days #12 05/24/21 Unknown Rx [Percocet 10/325 mg] tablet Active Meds: Active Medications Acetaminophen (Acetaminophen 325 Mg Tab) 650 mg PO Q4H PRN PRN Reason: Pain MILD(1-3)/Fever >100.5/LUNA Aspirin (Aspirin Ec 81 Mg Tab) 81 mg PO QDAY [facility] Atorvastatin Calcium (Atorvastatin 40 Mg Tab) 40 mg PO QHS SIRENA Last Admin: 05/24/21 21:53 Dose: 40 mg Documented by: Bisacodyl (Bisacodyl 10 Mg Rect Supp) 10 mg [place] QDAY PRN PRN Reason: Constipation Clopidogrel Bisulfate (Clopidogrel 75 Mg Tab) 75 mg PO QDAY [facility] Dextrose (Dextrose 50% In Water (25gm) 50 Ml Syringe) 50 ml IV Q30MIN PRN; Protocol PRN Reason: Hypoglycemia Docusate Sodium (Docusate Sodium 100 Mg Cap) 100 mg PO BID [facility] Last Admin: 05/24/21 21:53 Dose: 100 mg Documented by: Enoxaparin Sodium (Enoxaparin 40 Mg/0.4 Ml Inj) 40 mg SUB-Q QDAY [facility] Hydralazine HCl (Hydralazine 20 Mg/1 Ml Inj) 10 mg IV Q4H PRN PRN Reason: Hypertension Sodium Chloride (Nacl 0.9% 1000 Ml) 1,000 mls @ 75 mls/hr IV DIRECT [facility]RE[facility] Stop: 05/26/21 00:19 Ceftriaxone Sodium (Rocephin/Ns 2 Gm/100 Ml) 2 gm in 100 mls @ 200 mls/hr IV Q24H [facility]; Protocol Stop: 05/28/21 09:59 Insulin Glargine (Insulin Glargine 100 Units/Ml) 8 units SUB-Q QHS [facility] Last Admin: 05/24/21 21:56 Dose: 8 units Documented by: Insulin Human Lispro (Insulin Lispro 100 Unit/Ml) 0 unit SUB-Q ACHS [facility]; Protocol Last Admin: 05/24/21 21:54 Dose: 3 unit Documented by: Lisinopril (Lisinopril 5 Mg Tab) 5 mg PO QDAY [facility] Ondansetron HCl (Ondansetron 4 Mg Odt Tab) 4 mg PO Q8H PRN PRN Reason: Nausea And Vomiting Oxycodone/Acetaminophen (Oxycodone /Acetaminophen 5-325mg Tab) 1 tab PO Q6H PRN PRN Reason: Pain, Moderate (4-6) Oxycodone/Acetaminophen (Oxycodone /Acetaminophen 5-325mg Tab) 2 tab PO Q6H PRN PRN Reason: Pain , Severe (7-10) Polyethylene Glycol (Polyethylene Glycol 3350 17 Gm Powder) 17 gm PO QDAY PRN PRN Reason: Constipation Senna (Sennosides 8.6 Mg Tab) 8.6 mg PO Q12H PRN PRN Reason: Laxative Effect Trazodone HCl (Trazodone 50 Mg Tab) 50 mg PO QHS [facility] Last Admin: 05/24/21 21:53 Dose: 50 mg Documented by: Review of Systems All systems: negative (ROS negative for 10 systems except as noted below with pertinent positives and negatives.) Constitutional: weakness, poor appetite, no fever Ears, nose, mouth and throat: no decreased hearing, no vertigo Cardiovascular: no chest pain, no rapid/irregular heart beat, no edema Respiratory: no cough, no shortness of breath Gastrointestinal: constipation, no abdominal pain, no nausea, no vomiting, no diarrhea Genitourinary Male: no dysuria, no incontinence Integumentary: wounds (Right BKA intact with lucio and drainage on the lateral aspect), blisters (At the right BKA site), no rash Neurological: gait dysfunction, no weakness, no lack of coordination Psychiatric: insomnia, no anxiety Endocrine: high blood sugars Exam - Exam Narrative exam: MUSCULOSKELETAL SPECIALTY EXAM CONSTITUTIONAL: Well developed, well nourished, appropriately groomed LYMPHATIC: No appreciable abnormalities palpable in neck EENT: Hearing intact to soft voice RESPIRATORY: Clear to auscultation bilaterally, no increased work of breathing CARDIOVASCULAR: Regular Rate/ Rhythm, no swelling, edema or tenderness in BUE or BLE. Pulses palpable in all extremities. All extremities warm. GI: + bowel sounds, soft, NTTP, nondistended. INTEGUMENTARY: Incision at right BKA site clean dry and intact with serosanguineous drainage at the lateral aspect and scattered blisters, otherwise normal, no lesion, rash, masses or bruising noted in extremities. MUSCULOSKELETAL: Right BKA, BUE and LLE normal without defect, crepitus, subluxation, effusion, arthritic changes or TTP. BUE 4+/5, good ROM, with normal tone. BLE 4+/5 good ROM, with normal tone NEURO: CN 2-12 grossly intact. Sensation intact in all extremities. Reflexes 2+ bilaterally at biceps, brachioradialis and left patella. No clonus at ankle. Coordination intact in BUE. No tremor noted in 4 extremities. POSTURE and GAIT: Sitting posture good. Balance and gait deferred until seen with therapy. PSYCH: Alert, oriented x3, affect appears normal. Insight appears intact. - Constitutional Vitals: Vital Signs - 12hr 05/24/21 05/25/21 05/25/21 23:58 00:21 07:55 Temperature 99.0 F 97.6 F Pulse Rate 114 H 103 H Respiratory 20 18 Rate Blood Pressure 142/76 153/86 O2 Sat by Pulse 94 99 97 Oximetry - Labs CBC & Chem 7: 05/25/21 Unknown 05/25/21 Unknown Labs: Laboratory Results - last 72 hr 05/24/21 05/25/21 05/25/21 21:31 Unknown Unknown WBC 9.1 RBC 3.57 L Hgb 8.4 L Hct 25.3 L MCV 71 L MCH 24 L MCHC 33 RDW 15.8 H Plt Count 161 Lymph % (Auto) 7.1 L Mcpherson % (Auto) 8.1 H Eos % (Auto) 3.0 Baso % (Auto) 0.3 Lymph # (Auto) 0.6 L Mcpherson # (Auto) 0.7 Eos # (Auto) 0.3 Baso # (Auto) 0.0 Seg Neutrophils % 81.5 H Seg Neutrophils # 7.4 Sodium 133 L Potassium 3.9 Chloride 96.9 L Carbon Dioxide 26 Anion Gap 14 BUN 11 Creatinine 0.7 L Estimated GFR > 60 BUN/Creatinine Ratio 16 Glucose 186 H POC Glucose 225 H Calcium 8.4 Total Bilirubin 0.40 AST 56 H ALT 35 Alkaline Phosphatase 111 Total Protein 6.5 Albumin 3.2 L Albumin/Globulin Ratio 1.0 Assessment and Plan Assessment and plan: Patient was assessed and evaluated for Acute Inpatient Rehab Unit. Due to the patients above-mentioned medical complexity, along with decreased functional mobility and self care, this patient continues to require and be appropriate for a comprehensive, multidisciplinary [id number] rehabilitation program. These needs cannot be met in an outpatient or other less intensive setting. The patient would continue to benefit from skilled therapy intervention for at least 3 hours per day, five days a week, with techniques specific to the needs of the patient to improve function, activities of daily living, and reintegration into the community. The patient continues to require: -- OT to improve ROM, self-care, and learn use of adaptive equipment -- PT to improve strength and balance, functional transfers, and ambulation with energy conservation techniques to improve functional mobility -- 24 hour RN to ensure and prevent skin breakdown, promote progressive independence while ensuring safety, ensure education regarding medications, and incorporation of the rehabilitation at the bedside -- 24 hour Pawn Shop Keeper to coordinate this interdisciplinary program, and to manage/prevent complications as a result of the patients medical comorbidities. -Plan of care by day 4 -Weekly team conferences With such a program, there is a reasonable certainty that the goals individualized for this patient can be achieved within the specified length of stay. Right BKA: Dressing changed today with lateral drainage noted. Otherwise lucio were clean dry and intact. We will look to get the patient a clamshell stump protector as well as grape cutter in the future once cleared for use. Have discussed with the patient the timeline and prognosis for BKA and obtaining a prosthesis. Will need to work with patient on improving mobility, transfers and fall recovery. We will look to discharge patient home with a wheelchair as he will be unable to perform MR ADLs from a safe position otherwise. Continue to monitor the surgical site for any signs of infection or dehiscence and contact surgeon if issues arise. Patient has been tachycardic as well as febrile. Will continue antibiotics for a few days and monitor for improvement. Consider reconsulting infectious disease if needed. Diabetes type 2: Insulin currently being adjusted to control the patient's diabetes. Continue carb controlled diet along with sliding scale insulin and we are starting long-acting insulin. Important for wound healing to keep glucose at a reasonable level. Hypertension: Patient did not have any antihypertensives listed at time of admission and was not on any at time of discharge. Blood pressure has been intermittently elevated with a high of 195/105 as recently as 2 days ago. Have started lisinopril and will increase as needed to titrate for effect. Goal blood pressure less than 140/80 while avoiding hypotension. Postoperative anemia: Hemoglobin decreased from 11.3-8.4 since the surgery, microcytic in nature. Most likely due to acute blood loss but will work-up anemia and treat as needed. Phantom sensation: Discussed phantom pain with the patient and desensitization techniques. If the sensations become painful, will look to start either gabapentin or Lyrica. Continue modalities. Constipation: Have started scheduled as well as as needed medications, monitor for normal bowel movements and look to adjust as needed. Insomnia: Continue trazodone, sleep hygiene discussed, will monitor for effect and increase if needed. Postoperative pain: Patient currently well controlled on oral medications, have instituted stepwise options for availability. Look to decrease pain medications as able with the patient utilizing lowest possible dose at time of discharge. Hyperlipidemia: Continue statin, monitor for any adverse side effects. Peripheral vascular disease status post stents: Continue aspirin and Plavix and monitor for worsening of symptoms. Reconsult vascular surgeon if necessary. Hyponatremia: Gentle IV fluids for both volume depletion as well as hyponatremia, monitor for improvement. ADL dysfunction: OT will work on improving ability to perform ADLs (including assistive devices) to increase independence and decrease caregiver burden and improve functional transfers and mobility training. Difficulty walking: PT will work on gait training and proper use of assistive devices and advance as appropriate to use of stairs and outside ambulation on uneven surfaces. Unsteadiness on feet: PT will work on improving static and dynamic sitting and standing balance as well as proper use of assistive devices to decrease risk of falls. Abnormality of gait: PT will work to improve safety and efficiency of gait through neuromotor training and gait training along with instruction on proper use of assistive devices. Muscle weakness: PT & OT will work on strengthening exercises to improve functional strength including mixture of closed and open kinetic chain exercises. Debility: PT & OT will work on improving overall functional status to improve participation with ADLs, mobility and social involvement. Fatigue: PT & OT will work on improving endurance through aerobic exercises and therapeutic activity while monitoring patients tolerance for activity and vital signs as needed. DVT ppx: Lovenox Pain: Continue physical modalities in therapy and pain medications as needed to achieve functional pain control. Sleep: Monitor and address as needed. Bowel: Monitor and address as needed. Appetite: Monitor and address as needed. Discharge planning: Pending therapy progress and care plan meeting. Will continue discussion with therapy team, SW, patient. Restrictions/ Precautions: Falls, infection WB status: FWB Functional Hx: ADLs: Independent Cognition: Independent Mobility: Cane occasional Barriers to Discharge: Decreased mobility and ability to perform self care, balance deficits, weakness Estimated Length of Stay: 148 days Discharge Destination: Home to senior care POST ADMISSION PHYSICIAN EVALUATION I have examined the patient and find that functional status, medical condition and appropriateness for IRF admission are essentially unchanged from those described in the preadmission screening. Will monitor for worsening wound dehiscence, drainage, recurrent infection, DVT/PE, bowel and bladder comp lications and complications due to diabetes, hypertension, postoperative anemia, phantom pain, and electrolyte abnormalities. Will attempt to avoid occurrence of these issues or treat them if they present themselves.
[2021-05-25] MEDS ORDERED: LISINOPRIL 5 MG TAB PO SCH (10:00)
[2021-05-25] MEDS: cefTRIAXone/NS 2 GM/100 ML 2 GM/100 ML BAG IV SCH (10:30)
[2021-05-25] MEDS: DOCUSATE SODIUM 100 MG CAP PO SCH ×2 (10:35→21:50)
[2021-05-25] MEDS: ASPIRIN EC 81 MG TAB PO SCH (10:35)
[2021-05-25] MEDS: ENOXAPARIN 40 MG/0.4 ML INJ SUB-Q SCH (10:35)
[2021-05-25] MEDS: CLOPIDOGREL 75 MG TAB PO SCH (10:35)
[2021-05-25] MEDS ORDERED: SODIUM CHLORIDE 0.9% 1000 ML 1,000 ML IV SCH (11:00)
[2021-05-25] MEDS: INSULIN LISPRO 100 UNIT/ML SUB-Q SCH ×3 (12:07→22:54)
[2021-05-25] MEDS: traZODone 50 MG TAB PO SCH (21:50)
[2021-05-25] MEDS: INSULIN GLARGINE 100 UNITS/ML SUB-Q SCH (22:53)
[2021-05-26] MEDS: oxyCODONE /ACETAMINOPHEN 5-325MG TAB PO PRN ×4 (02:04→22:34)
[2021-05-26] MEDS: INSULIN LISPRO 100 UNIT/ML SUB-Q SCH ×5 (08:37→22:30)
[2021-05-26] MEDS: LISINOPRIL 10 MG TAB PO SCH (10:27)
[2021-05-26] MEDS: ASPIRIN EC 81 MG TAB PO SCH (10:27)
[2021-05-26] MEDS: DOCUSATE SODIUM 100 MG CAP PO SCH ×2 (10:27→22:31)
[2021-05-26] MEDS: ENOXAPARIN 40 MG/0.4 ML INJ SUB-Q SCH (10:27)
[2021-05-26] MEDS: CLOPIDOGREL 75 MG TAB PO SCH (10:27)
[2021-05-26] MEDS: cefTRIAXone/NS 2 GM/100 ML 2 GM/100 ML BAG IV SCH (12:32)
[2021-05-26] MEDS: traZODone 50 MG TAB PO SCH (22:29)
[2021-05-26] MEDS: INSULIN GLARGINE 100 UNITS/ML SUB-Q SCH (22:29)
--- NOTE | 2021-05-27 09:23 | Progress Note ---
Subjective Date of service: 05/27/21 Principal diagnosis: Right BKA Interval history: 60-year-old male with a history of a right diabetic foot ulcer which is previously under gone partial amputation. Patient developed continuing right foot pain and had a foul smelling wound. Work-up showed osteomyelitis on x-ray as well as MRI and antibiotics were started and surgery was consulted. Patient underwent debridement. Also underwent revascularization of the right lower extremity. 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 After the definitive treatment, infectious disease stated that the IV antibiotics could be stopped after 2 or 3 days postop. Wound cultures did grow out Proteus and beta- hemolytic strep group B. After the patient was medically stabilized they were transferred for further rehabilitation. All available medical records have been reviewed. Plan of care was discussed with patient. Interval History: Patient is participating in therapy and making reasonable progress. Taking rest breaks as needed. -BM. Denies pain, palpitations, dyspnea, cough, N/V, weakness, or joint pain. Since admission, patient has had 2 fevers while on antibiotics. We will continue Rocephin for 7 days and continue to monitor CBC and vitals. Labs pending today Right BKA: Continue dressing changes every other day. Monitor for wound dehiscence and or infection. Antibiotics being continued due to fevers (99.8 on 05/24, 100.4 on 05/25). Stump protector on when out of bed. Continue rehab Hypertension: Blood pressure within reasonable range today, continue to monitor and adjust medications as needed for normotension while avoiding hypotension Postoperative anemia: Labs pending today, will start replacement vitamin/minerals as needed based on labs Phantom sensation: Patient noted to be actively rubbing his right lower residual limb, sensation still present but has not converted to phantom pain yet. Continue to monitor and continue desensitization. Constipation: Patient still has not had a bowel movement. Discussed with nursing and patient that he may need to consider fleets enema are suppository. We will continue to monitor and continue medications for regularity Postoperative pain: Fairly well controlled on current medications, patient does have option of taking one or 2 tabs of Percocet. And for most of yesterday was taking the higher dose. Peripheral vascular disease: No signs of cool limbs or decreased blood flow. Continue medications continue to monitor for any issues, reconsult vascular if needed ADL and mobility dysfunction: Patient making decent progress with physical therapy and Occupational Therapy. Continue therapy interventions and modalities in order to improve patient's mobility and independence. All records, vitals, labs and medications were reviewed. No other issues per patient, nursing or therapy. Objective - Exam Narrative Exam: MUSCULOSKELETAL SPECIALTY EXAM CONSTITUTIONAL: Well developed, well nourished, appropriately groomed RESPIRATORY: Clear to auscultation bilaterally, no increased work of breathing CARDIOVASCULAR: Regular Rate/ Rhythm, no swelling, edema or tenderness in BUE or BLE. All extremities warm. GI: + bowel sounds, soft, NTTP, nondistended. INTEGUMENTARY: Incision at right BKA site clean dry and intact with serosanguineous drainage at the lateral aspect and scattered blisters, otherwise normal, no lesion, rash, masses or bruising noted in extremities. MUSCULOSKELETAL: Right BKA, BUE and LLE normal without defect, crepitus, subluxation, effusion, arthritic changes or TTP. BUE 4+/5, good ROM, with normal tone. BLE 4+/5 good ROM, with normal tone NEURO: CN 2-12 grossly intact. Sensation intact in all extremities. No tremor noted in 4 extremities. POSTURE and GAIT: Sitting posture good. Balance and gait deferred until seen with therapy. PSYCH: Alert, oriented x3, affect appears normal. Insight appears intact. - Constitutional Vitals: Vital Signs - 12hr 05/26/21 05/26/21 21:26 23:50 Temperature 98.7 F Pulse Rate 98 H Respiratory 20 Rate Blood Pressure 145/84 O2 Sat by Pulse 98 96 Oximetry - Allied health notes Allied health notes reviewed: nursing, PT, OT FIMS assessment as documented by PT/OT/ST: Locomotion- walk/wheelchair Ambulation Distance 23 - Labs CBC & Chem 7: 05/25/21 Unknown 05/25/21 Unknown Labs: Laboratory Results - last 72 hr 05/24/21 05/25/21 05/25/21 21:31 11:46 16:34 WBC RBC Hgb Hct MCV MCH MCHC RDW Plt Count Lymph % (Auto) [place] % (Auto) Eos % (Auto) Baso % (Auto) Lymph # (Auto) [place] # (Auto) Eos # (Auto) Baso # (Auto) Seg Neutrophils % Seg Neutrophils # Sodium Potassium Chloride Carbon Dioxide Anion Gap BUN Creatinine Estimated GFR BUN/Creatinine Ratio Glucose POC Glucose 225 H 199 H 214 H Calcium Total Bilirubin AST ALT Alkaline Phosphatase Total Protein Albumin Albumin/Globulin Ratio 05/25/21 05/25/21 05/25/21 21:59 Unknown Unknown WBC 9.1 RBC 3.57 L Hgb 8.4 L Hct 25.3 L MCV 71 L MCH 24 L MCHC 33 RDW 15.8 H Plt Count 161 Lymph % (Auto) 7.1 L [place] % (Auto) 8.1 H Eos % (Auto) 3.0 Baso % (Auto) 0.3 Lymph # (Auto) 0.6 L [place] # (Auto) 0.7 Eos # (Auto) 0.3 Baso # (Auto) 0.0 Seg Neutrophils % 81.5 H Seg Neutrophils # 7.4 Sodium 133 L Potassium 3.9 Chloride 96.9 L Carbon Dioxide 26 Anion Gap 14 BUN 11 Creatinine 0.7 L Estimated GFR > 60 BUN/Creatinine Ratio 16 Glucose 186 H POC Glucose 165 H Calcium 8.4 Total Bilirubin 0.40 AST 56 H ALT 35 Alkaline Phosphatase 111 Total Protein 6.5 Albumin 3.2 L Albumin/Globulin Ratio 1.0 05/26/21 05/26/21 05/26/21 07:32 12:39 17:33 WBC RBC Hgb Hct MCV MCH MCHC RDW Plt Count Lymph % (Auto) [place] % (Auto) Eos % (Auto) Baso % (Auto) Lymph # (Auto) [place] # (Auto) Eos # (Auto) Baso # (Auto) Seg Neutrophils % Seg Neutrophils # Sodium Potassium Chloride Carbon Dioxide Anion Gap BUN Creatinine Estimated GFR BUN/Creatinine Ratio Glucose POC Glucose 122 H 168 H 186 H Calcium Total Bilirubin AST ALT Alkaline Phosphatase Total Protein Albumin Albumin/Globulin Ratio 05/26/21 05/27/21 21:11 08:17 WBC RBC Hgb Hct MCV MCH MCHC RDW Plt Count Lymph % (Auto) [place] % (Auto) Eos % (Auto) Baso % (Auto) Lymph # (Auto) [place] # (Auto) Eos # (Auto) Baso # (Auto) Seg Neutrophils % Seg Neutrophils # Sodium Potassium Chloride Carbon Dioxide Anion Gap BUN Creatinine Estimated GFR BUN/Creatinine Ratio Glucose POC Glucose 225 H 143 H Calcium Total Bilirubin AST ALT Alkaline Phosphatase Total Protein Albumin Albumin/Globulin Ratio Assessment and Plan Right BKA: Dressing changed today with lateral drainage noted. Otherwise lucio were clean dry and intact. We will look to get the patient a clamshell stump protector as well as operating room nurse in the future once cleared for use. Have discussed with the patient the timeline and prognosis for BKA and obtaining a prosthesis. Will need to work with patient on improving mobility, transfers and fall recovery. We will look to discharge patient home with a wheelchair as he will be unable to perform MR ADLs from a safe position otherwise. Continue to monitor the surgical site for any signs of infection or dehiscence and contact surgeon if issues arise. Patient has been tachycardic as well as febrile x2. Will continue antibiotics for a 7 days and monitor for improvement. Consider reconsulting infectious disease if needed. Diabetes type 2: Insulin currently being adjusted to control the patient's diabetes. Continue carb controlled diet along with sliding scale insulin and we are starting long-acting insulin. Important for wound healing to keep glucose at a reasonable level. Improving on current dose, continue to monitor and adjust in the next day or 2 Hypertension: Patient did not have any antihypertensives listed at time of admission and was not on any at time of discharge. Blood pressure has been intermittently elevated with a high of 195/105 as recently as 2 days ago. Have started lisinopril and will increase as needed to titrate for effect. Goal blood pressure less than 140/80 while avoiding hypotension. Improving on cur rent dose of lisinopril, continue to monitor and adjust, systolic blood pressure mainly in the 130s currently Postoperative anemia: Hemoglobin decreased from 11.3-8.4 since the surgery, microcytic in nature. Most likely due to acute blood loss but will work-up anemia and treat as needed. Phantom sensation: Discussed phantom pain with the patient and desensitization techniques. If the sensations become painful, will look to start either gabapentin or Lyrica. Continue modalities. Constipation: Have started scheduled as well as as needed medications, monitor for normal bowel movements and look to adjust as needed. Insomnia: Continue trazodone, sleep hygiene discussed, will monitor for effect and increase if needed. Postoperative pain: Patient currently well controlled on oral medications, have instituted stepwise options for availability. Look to decrease pain medications as able with the patient utilizing lowest possible dose at time of discharge. Hyperlipidemia: Continue statin, monitor for any adverse side effects. Peripheral vascular disease status post stents: Continue aspirin and Plavix and monitor for worsening of symptoms. Reconsult vascular surgeon if necessary. Hyponatremia: Gentle IV fluids for both volume depletion as well as hyponatremia, monitor for improvement. ADL dysfunction: OT will work on improving ability to perform ADLs (including assistive devices) to increase independence and decrease caregiver burden and improve functional transfers and mobility training. Difficulty walking: PT will work on gait training and proper use of assistive devices and advance as appropriate to use of stairs and outside ambulation on uneven surfaces. Unsteadiness on feet: PT will work on improving static and dynamic sitting and standing balance as well as proper use of assistive devices to decrease risk of falls. Abnormality of gait: PT will work to improve safety and efficiency of gait through neuromotor training and gait training along with instruction on proper use of assistive devices. Muscle weakness: PT & OT will work on strengthening exercises to improve functional strength including mixture of closed and open kinetic chain exercises. Debility: PT & OT will work on improving overall functional status to improve participation with ADLs, mobility and social involvement. Fatigue: PT & OT will work on improving endurance through aerobic exercises and therapeutic activity while monitoring patients tolerance for activity and vital signs as needed. DVT ppx: Lovenox Pain: Continue physical modalities in therapy and pain medications as needed to achieve functional pain control. Sleep: Monitor and address as needed. Bowel: Monitor and address as needed. Appetite: Monitor and address as needed. Discharge planning: Pending therapy progress and care plan meeting. Will continue discussion with therapy team, SW, patient. Restrictions/ Precautions: Falls, infection, stump protector on when out of bed WB status: FWB Functional Hx: ADLs: Independent Cognition: Independent Mobility: Cane occasional Barriers to Discharge: Decreased mobility and ability to perform self care, balance deficits, weakness Estimated Length of Stay: 148 days Discharge Destination: Home to nursing home
[2021-05-27] MEDS: INSULIN LISPRO 100 UNIT/ML SUB-Q SCH ×4 (10:43→21:38)
[2021-05-27] MEDS: LISINOPRIL 10 MG TAB PO SCH (10:45)
[2021-05-27] MEDS: ENOXAPARIN 40 MG/0.4 ML INJ SUB-Q SCH (10:45)
[2021-05-27] MEDS: DOCUSATE SODIUM 100 MG CAP PO SCH ×2 (10:46→21:38)
[2021-05-27] MEDS: CLOPIDOGREL 75 MG TAB PO SCH (10:46)
[2021-05-27] MEDS: ASPIRIN EC 81 MG TAB PO SCH (10:46)
[2021-05-27] MEDS: oxyCODONE /ACETAMINOPHEN 5-325MG TAB PO PRN ×3 (10:55→21:43)
[2021-05-27] MEDS: cefTRIAXone/NS 2 GM/100 ML 2 GM/100 ML BAG IV SCH (11:06)
[2021-05-27] MEDS ORDERED: FLEET ENEMA PR PRN (12:00)
--- NOTE | 2021-05-27 19:27 | IRU Plan of Care ---
Interdisciplinary Plan of Care - IP IRU INTERDISCIPLINARY PLAN: [facility] Inpatient Rehab Unit Plan of Care IRU Interdisciplinary Care Plan Start: 05/25/21 15:21 Freq: Status: Active Protocol: Document 05/27/21 15:04 AB (Rec: 05/27/21 15:21 AB [id number]) Interdisciplinary Problem List Interdisciplinary Problem List Interdisciplinary Problem List Impaired Bathing/Grooming, Query Text:Answers will Trigger Problems Impaired Dressing,Impaired and Outcomes on Worklist. Mobility,Impaired Transfers, Impaired Toileting,Impaired Social Interaction,Community Reintergration,Impaired Home Management,Impaired Safety IRU Interdisciplinary Care Plan Therapy Services Therapy Services Will Include: Physical Therapy,Occupational Query Text:Patient will be seen for a Therapy minimum of 3 hours of daily therapy 5 out of 7 days a week. Therapy intensity may be adjusted within a 7 consecutive day period to effectively serve the individual needs of the patient. Treatment Frequency/Intensity/Duration Treatment Frequency 5x/ wk Treatment Intensity 3 hours/ day Treatment Duration 10-14 days Problem Area: Eating/Swallowing Eating/Swallowing Outcomes Eating/Swallowing Interventions Problem Area: Bathing/Grooming Bathing/Grooming Outcomes Improve [place] w/ Bathing Bathing/Grooming Interventions ADL Training,Use of Assistive Devices,Therapeutic Exercise, Therapeutic Activity, Neuromuscular Re-Education, Balance Work,Activity Tolerance Work,Patient/ Caregiver Education Problem Area: Dressing Dressing Outcomes Improve [place] w/ LB Dressing Dressing Interventions ADL Training,Use of Assistive Devices,Neuromuscular Re- Education,Therapeutic Exercise ,Balance Work,Modalities, Patient/Caregiver Education Problem Area: Mobility Mobility Outcomes Improve [place] w/ Bed Mobility,Improve [place] w/ Ambulation,Improve [place] w/ Stairs/Curb, Improve [place] w/ Wheelchair Mobility Interventions Therapeutic Exercise,Activity Tolerance Work,Use of Assistive Devices,Patient/ Caregiver Education,Bed Mobility Work,Gait Training,W/ C Mobility Work Problem Area: Transfers Transfers Outcomes Improve [place] w/ Bed Transfers,Improve [place] w/ Toilet Transfers,Improve [place] w/ Tub/Shower Transfers,Improve [place] w/ Car Transfers Transfers Interventions Transfer Training,Therapeutic Exercise,Neuromuscular Re- Education,Visual/Perceptual Training,Activity Tolerance Work,Modalities,Use of Assistive Devices,Patient/ Caregiver Education Problem Area: Bowel/Bladder Managment Bowel/Bladder Outcomes Bowel/Bladder Interventions Problem Area: Toileting Toileting Outcomes Improve [place] w/ Toileting Toileting Interventions ADL Training,Balance Work,Use of Assistive Devices,Patient/ Caregiver Education Problem Area: Nutrition Nutrition Outcomes Nutrition Interventions Problem Area: Comprehension Comprehension Outcomes Comprehension Interventions Problem Area: Expression Expression Outcomes Expression Interventions Problem Area: Problem Solving Problem Solving Outcomes Problem Solving Interventions Problem Area: Memory Memory Outcomes Memory Interventions Problem Area: Pain Management Pain Management Outcomes Pain Management Interventions Problem Area: Knowledge Deficits Knowledge Deficits Outcomes Demonstrate Ability to Manage Blood Glucose Knowledge Deficits Interventions Disease/Injury/Sx. Intervention Education, Medication Use Education, Disease Management Education Problem Area: Skin/Tissue Integrity Skin/Tissue Integrity Outcomes Skin/Tissue Integrity Interventions Problem Area: Social Interaction Social Interaction Outcomes Social Interaction Interventions Problem Area: Adjustment to Disability Adjustment to Disability Outcomes Adjustment to Disability Interventions Problem Area: Discharge Concerns Discharge Concerns Outcomes Discharge w/ Necessary Equipment,Have Home Health/ Outpatient Services Discharge Concerns Interventions Discharge Planning,Equipment Assessment, Acquisition and Placement,Family/Caregiver Training Problem Area: Community Reintegration Community Reintegration Outcomes Community Reintegration Interventions Problem Area: Home Management Home Management Outcomes Improve [place] w/ Home Management Home Management Interventions Clothing Care,Activity Tolerance Work,Patient/ Caregiver Education Problem Area: Safety Safety Outcomes Provide Safe Environment, Perform Selfcare Safely, Demonstrate Good Safety w/ Transfers/Mobility Safety Interventions Identify Fall Risk,[place] Pt. to Environment,Reduce Environmental Hazards,Neuro Check Assessment,Implement Mechanical Devices, i.e. Chair Alarm (Post Fall Update),Re- Educate Patient/Caregiver for Safety (Post Fall Update) Problem Area: Medication Education Medication Education Outcomes Medication Education Interventions Problem Area: Diabetes Education Diabetes Education Outcomes Demonstrate Knowledge of Resources Availlable in Diabetic Ed. Folder Diabetes Education Interventions Give Pt. Diabetes Education Folder,Discuss Pathophysiology of Diabetes Problem Area: Oxygenation Oxygenation Outcomes Oxygenation Interventions Problem Area: Cardiovascular Cardiovascular Outcomes Maintain or Improve Cardiovascular Status Cardiovascular Interventions Assess Vital Signs at least Every 4 hours Physician Only Medical Prognosis and Rehabilitation Good rehab potential, good medical prognosis Potential (Completed by Physician) This plan of care has been developed based on the findings from the pre-ad mission assessment, post admission physician evaluation, information gathered from the assessments from all therapy disciplines and other pertinent clinicians. The plan of care has been reviewed and discussed in collaboration with the interdisciplinary team. The plan of care will be reviewed and updated at least weekly.
[2021-05-27 20:08] LABS: Hematocrit 23.3 % (35.5-45.6); Hemoglobin 7.7 gm/dl (11.8-15.2); Mean Corpuscular HGB Conc 33 % (32-34); Mean Corpuscular Volume 71 fl (84-94); Platelet Count 202 K/mm3 (140-440); Red Blood Count 3.31 M/mm3 (3.65-5.03); Red Cell Distribution Width 15.4 % (13.2-15.2)
[2021-05-27 20:31] LABS: BUN/Creatinine Ratio 20; Blood Urea Nitrogen 14 mg/dL (9-20); Calcium 8.6 mg/dL (8.4-10.2); Hemolysis Index 3; Iron 19 ug/dL (49-181); Total Iron Binding Capacity 186 mcg/dL (250-450)
[2021-05-27] MEDS: traZODone 50 MG TAB PO SCH (21:38)
[2021-05-27] MEDS: INSULIN GLARGINE 100 UNITS/ML SUB-Q SCH (21:38)
[2021-05-28] MEDS: INSULIN LISPRO 100 UNIT/ML SUB-Q SCH ×4 (09:02→21:29)
[2021-05-28] MEDS: cefTRIAXone/NS 2 GM/100 ML 2 GM/100 ML BAG IV SCH (09:03)
[2021-05-28] MEDS: LISINOPRIL 10 MG TAB PO SCH (09:03)
[2021-05-28] MEDS: CLOPIDOGREL 75 MG TAB PO SCH (09:03)
[2021-05-28] MEDS: ASPIRIN EC 81 MG TAB PO SCH (09:03)
[2021-05-28] MEDS: DOCUSATE SODIUM 100 MG CAP PO SCH ×2 (09:03→21:29)
[2021-05-28] MEDS: ENOXAPARIN 40 MG/0.4 ML INJ SUB-Q SCH (09:04)
[2021-05-28] MEDS: FERROUS SULFATE 325 MG TAB PO SCH ×2 (09:38→21:29)
[2021-05-28] MEDS: CYANOCOBALAMIN (VIT B-12) 1000 MCG TAB PO SCH (09:38)
[2021-05-28] MEDS: FOLIC ACID 1 MG TAB PO SCH (09:38)
--- NOTE | 2021-05-28 10:00 | Progress Note ---
Subjective Date of service: 05/28/21 Principal diagnosis: Right BKA Interval history: 60-year-old male with a history of a right diabetic foot ulcer which is previously under gone partial amputation. Patient developed continuing right foot pain and had a foul smelling wound. Work-up showed osteomyelitis on x-ray as well as MRI and antibiotics were started and surgery was consulted. Patient underwent debridement. Also underwent revascularization of the right lower extremity. 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 After the definitive treatment, infectious disease stated that the IV antibiotics could be stopped after 2 or 3 days postop. Wound cultures did grow out Proteus and beta- hemolytic strep group B. After the patient was medically stabilized they were transferred for further rehabilitation. All available medical records have been reviewed. Plan of care was discussed with patient. Interval History: Patient is participating in therapy and making reasonable progress. Taking rest breaks as needed. -BM, suppository/enema not given yesterday as requested, discussed with nursing again today. Denies pain, palpitations, dyspnea, cough, N/V, weakness, or joint pain. Right BKA: Continue dressing changes every other day. Monitor for wound dehiscence and or infection. Antibiotics being continued due to fevers (99.8 on 05/24, 100.4 on 05/25). Stump protector on when out of bed. Continue rehab Hypertension: Blood pressure within reasonable range today, continue to monitor and adjust medications as needed for normotension while avoiding hypotension Postoperative anemia: Based on available labs this is likely a mixed anemia with a component of anemia of chronic disease and exacerbated by acute blood loss. As such, will replace vitamin B12, folate and iron on a limited basis and watch for improvement. Hemoglobin has dropped down to 7.7. Continue to monitor and transfu se if needed. Phantom sensation: Patient noted to be actively rubbing his right lower residual limb, sensation still present but has not converted to phantom pain yet. Continue to monitor and continue desensitization. Constipation: Patient still has not had a bowel movement. Discussed with juan miguel mccain and patient that he may need to consider fleets enema are suppository. We will continue to monitor and continue medications for regularity Postoperative pain: Patient now stating that pain medication is not relieving the pain enough. Did have a lengthy discussion about pain medications and func tional pain control as well as the expectation that pain would be completely resolved. Patient does not appear to be in acute distress but does state that his pain level is a 7/8. Peripheral vascular disease: No signs of cool limbs or decreased blood flow. Continue medications continue to monitor for any issues, reconsult vascular if needed ADL and mobility dysfunction: Patient making decent progress with physical therapy and Occupational Therapy. Continue therapy interventions and modalities in order to improve patient's mobility and independence. All records, vitals, labs and medications were reviewed. No other issues per patient, nursing or therapy. Patient discussed during team conference. He may be going to a different living arrangement than the previously disclosed. His brother apparently is working on attempting to get him housing in the [facility] which is near the brother. Patient will need a wheelchair at discharge due to poor balance and the right BKA. Stump protector is on. Patient is making fairly decent progress currently and will need to complete IV antibiotics before discharge can occur but we do look at possible discharge middle of next week based on his current trajectory of recovery. In total 40 minutes was invested in patient care today including greater than 50% of that time invested in counseling patient on items above and coordinating care with nursing, therapy Objective - Exam Narrative Exam: MUSCULOSKELETAL SPECIALTY EXAM CONSTITUTIONAL: Well developed, well nourished, appropriately groomed RESPIRATORY: Clear to auscultation bilaterally, no increased work of breathing CARDIOVASCULAR: Regular Rate/ Rhythm, no swelling, edema or tenderness in BUE or BLE. All e xtremities warm. GI: + bowel sounds, soft, NTTP, nondistended. INTEGUMENTARY: Incision at right BKA site clean dry and intact with serosanguineous drainage at the lateral aspect and scattered blisters, otherwise normal, no lesion, rash, masses or bruising noted in extremities. Ampushield in place MUSCULOSKELETAL: Right BKA, BUE and LLE normal without defect, crepitus, subluxation, effusion, arthritic changes or TTP. BUE 4+/5, good ROM, with normal tone. BLE 4+/5 good ROM, with normal tone NEURO: CN 2-12 grossly intact. Sensation intact in all extremities. No tremor noted in 4 extremities. POSTURE and GAIT: Sitting posture good. Balance and gait deferred until seen with therapy. PSYCH: Alert, oriented x3, affect appears normal. Insight appears intact. - Constitutional Vitals: Vital Signs - 12hr 05/27/21 05/28/21 05/28/21 23:00 04:48 08:27 Temperature 98.1 F 98.4 F Pulse Rate 92 H 90 Respiratory 20 18 Rate Blood Pressure 137/77 135/73 O2 Sat by Pulse 99 96 97 Oximetry - Allied health notes Allied health notes reviewed: nursing, PT, OT FIMS assessment as documented by PT/OT/ST: Locomotion- walk/wheelchair Ambulation Distance 23 - Labs CBC & Chem 7: 05/27/21 19:00 05/27/21 19:00 Labs: Laboratory Results - last 72 hr 05/25/21 05/25/21 05/25/21 11:46 16:34 21:59 WBC RBC Hgb Hct MCV MCH MCHC RDW Plt Count Sodium Potassium Chloride Carbon Dioxide Anion Gap BUN Creatinine Estimated GFR BUN/Creatinine Ratio Glucose POC Glucose 199 H 214 H 165 H Calcium Iron TIBC Ferritin Vitamin B12 Folate 05/26/21 05/26/21 05/26/21 07:32 12:39 17:33 WBC RBC Hgb Hct MCV MCH MCHC RDW Plt Count Sodium Potassium Chloride Carbon Dioxide Anion Gap BUN Creatinine Estimated GFR BUN/Creatinine Ratio Glucose POC Glucose 122 H 168 H 186 H Calcium Iron TIBC Ferritin Vitamin B12 Folate 05/26/21 05/27/21 05/27/21 21:11 08:17 13:27 WBC RBC Hgb Hct MCV MCH MCHC RDW Plt Count Sodium Potassium Chloride Carbon Dioxide Anion Gap BUN Creatinine Estimated GFR BUN/Creatinine Ratio Glucose POC Glucose 225 H 143 H 122 H Calcium Iron TIBC Ferritin Vitamin B12 Folate 05/27/21 05/27/21 05/27/21 17:30 19:00 19:00 WBC 6.4 RBC 3.31 L Hgb 7.7 L Hct 23.3 L MCV 71 L MCH 23 L MCHC 33 RDW 15.4 H Plt Count 202 Sodium 134 L Potassium 3.8 Chloride 97.1 L Carbon Dioxide 25 Anion Gap 16 BUN 14 Creatinine 0.7 L Estimated GFR > 60 BUN/Creatinine Ratio 20 Glucose 201 H POC Glucose 145 H Calcium 8.6 Iron 19 L TIBC 186 L Ferritin Vitamin B12 Folate 05/27/21 05/27/21 05/27/21 19:00 19:00 19:00 WBC RBC Hgb Hct MCV MCH MCHC RDW Plt Count Sodium Potassium Chloride Carbon Dioxide Anion Gap BUN Creatinine Estimated GFR BUN/Creatinine Ratio Glucose POC Glucose Calcium Iron TIBC Ferritin 558.3 H Vitamin B12 312.1 Folate 5.22 L 05/27/21 20:40 WBC RBC Hgb Hct MCV MCH MCHC RDW Plt Count Sodium Potassium Chloride Carbon Dioxide Anion Gap BUN Creatinine Estimated GFR BUN/Creatinine Ratio Glucose POC Glucose 178 H Calcium Iron TIBC Ferritin Vitamin B12 Folate Assessment and Plan Right BKA: Dressing changed today with lateral drainage noted. Otherwise lucio were clean dry and intact. We will look to get the patient a clamshell stump protector as well as linen tech in the future once cleared for use. Have discussed with the patient the timeline and prognosis for BKA and obtaining a prosthesis. Will need to work with patient on improving mobility, transfers and fall recovery. We will look to discharge patient home with a wheelchair as he will be unable to perform MR ADLs from a safe position otherwise. Continue to monitor the surgical site for any signs of infection or dehiscence and contact surgeon if issues arise. Patient has been tachycardic as well as febrile x2. Will continue antibiotics for a 7 days and monitor for improvement. Consider reconsulting infectious disease if needed. Diabetes type 2: Insulin currently being adjusted to control the patient's diabetes. Continue carb controlled diet along with sliding scale insulin and we are starting long-acting insulin. Important for wound healing to keep glucose at a reasonable level. Improving on current dose, continue to monitor and adjust as needed Hypertension: Patient did not have any antihypertensives listed at time of admission and was not on any at time of discharge. Blood pressure has been intermittently elevated with a high of 195/105 as recently as 2 days ago. Have started lisinopril and will increase as needed to titrate for effect. Goal blood pressure less than 140/80 while avoiding hypotension. Improving on current dose of lisinopril, continue to monitor and adjust, systolic blood pressure mainly in the 130s currently Postoperative anemia: Hemoglobin decreased from 11.3-7.7 since the surgery, microcytic in nature. Appears to be combined postsurgical and anemia of chronic disease. Replace nutrients and monitor for improvement Phantom sensation: Discussed phantom pain with the patient and desensitization techniques. If the sensations become painful, will look to start either gabapentin or Lyrica. Continue modalities. Constipation: Have started scheduled as well as as needed medications, monitor for normal bowel movements and look to adjust as needed. Insomnia: Continue trazodone, sleep hygiene discussed, will monitor for effect and increase if needed. Postoperative pain: Patient now stating that the pain is not well controlled and he is experiencing sharp pain at the surgical site, denies any phantom pain currently. He is not receiving medication as frequently as he could but we have adjusted the medications and change to a [id number] oxycodone in order to help alleviate the pain and reduce issues with receiving too much Tylenol. Naloxone as needed order added. Look to decrease pain medications as able with the patient utilizing lowest possible dose at time of discharge. Hyperlipidemia: Continue statin, monitor for any adverse side effects. Peripheral vascular disease status post stents: Continue aspirin and Plavix and monitor for worsening of symptoms. Reconsult vascular surgeon if necessary. Hyponatremia: Improved ADL dysfunction: OT will work on improving ability to perform ADLs (including assistive devices) to increase independence and decrease caregiver burden and improve functional transfers and mobility training. Difficulty walking: PT will work on gait training and proper use of assistive devices and advance as appropriate to use of stairs and outside ambulation on uneven surfaces. Unsteadiness on feet: PT will work on improving static and dynamic sitting and standing balance as well as proper use of assistive devices to decrease risk of falls. Abnormality of gait: PT will work to improve safety and efficiency of gait through neuromotor training and gait training along with instruction on proper use of assistive devices. Muscle weakness: PT & OT will work on strengthening exercises to improve functional strength including mixture of closed and open kinetic chain exercises. Debility: PT & OT will work on improving overall functional status to improve participation with ADLs, mobility and social involvement. Fatigue: PT & OT will work on improving endurance through aerobic exercises and therapeutic activity while monitoring patients tolerance for activity and vital signs as needed. DVT ppx: Lovenox Pain: Continue physical modalities in therapy and pain medications as needed to achieve functional pain control. Sleep: Monitor and address as needed. Bowel: Monitor and address as needed. Appetite: Monitor and address as needed. Discharge planning: Pending therapy progress and care plan meeting. Will continue discussion with therapy team, SW, patient. Look to discharge with a wheelchair and possibly bedside commode middle to end of next week. Restrictions/ Precautions: Falls, infection, stump protector on when out of bed WB status: FWB Functional Hx: ADLs: Independent Cognition: Independent Mobility: Cane occasional Barriers to Discharge: Decreased mobility and ability to perform self care, balance deficits, weakness Estimated Length of Stay: 1418 days Discharge Destination: Home to retirement or possibly another home now
[2021-05-28] MEDS: oxyCODONE /ACETAMINOPHEN 5-325MG TAB PO PRN ×3 (10:17→21:28)
[2021-05-28] MEDS ORDERED: NALOXONE 0.4 MG/1 ML INJ IV PRN (11:00)
[2021-05-28] MEDS: ASCORBIC ACID 250 MG TAB PO SCH ×2 (15:33→21:35)
[2021-05-28] MEDS: traZODone 50 MG TAB PO SCH (21:29)
[2021-05-28] MEDS: INSULIN GLARGINE 100 UNITS/ML SUB-Q SCH (21:35)
[2021-05-29] MEDS: oxyCODONE 5 MG TAB PO PRN ×4 (04:08→22:45)
[2021-05-29] MEDS: INSULIN LISPRO 100 UNIT/ML SUB-Q SCH ×4 (08:35→22:47)
[2021-05-29] MEDS: ENOXAPARIN 40 MG/0.4 ML INJ SUB-Q SCH (09:09)
[2021-05-29] MEDS: CLOPIDOGREL 75 MG TAB PO SCH (09:10)
[2021-05-29] MEDS: DOCUSATE SODIUM 100 MG CAP PO SCH ×2 (09:11→22:46)
[2021-05-29] MEDS: ASCORBIC ACID 250 MG TAB PO SCH ×2 (09:11→22:46)
[2021-05-29] MEDS: CYANOCOBALAMIN (VIT B-12) 1000 MCG TAB PO SCH (09:11)
[2021-05-29] MEDS: FERROUS SULFATE 325 MG TAB PO SCH ×2 (09:12→22:46)
[2021-05-29] MEDS: ASPIRIN EC 81 MG TAB PO SCH (09:12)
[2021-05-29] MEDS: FOLIC ACID 1 MG TAB PO SCH (09:12)
[2021-05-29] MEDS: LISINOPRIL 10 MG TAB PO SCH (09:35)
[2021-05-29] MEDS: cefTRIAXone/NS 2 GM/100 ML 2 GM/100 ML BAG IV SCH (12:31)
--- NOTE | 2021-05-29 12:35 | Progress Note ---
Subjective Date of service: 05/29/21 Principal diagnosis: Right BKA Interval history: 60-year-old male with a history of a right diabetic foot ulcer which is previously under gone partial amputation. Patient developed continuing right foot pain and had a foul smelling wound. Work-up showed osteomyelitis on x-ray as well as MRI and antibiotics were started and surgery was consulted. Patient underwent debridement. Also underwent revascularization of the right lower extremity. 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 After the definitive treatment, infectious disease stated that the IV antibiotics could be stopped after 2 or 3 days postop. Wound cultures did grow out Proteus and beta- hemolytic strep group B. After the patient was medically stabilized they were transferred for further rehabilitation. All available medical records have been reviewed. Plan of care was discussed with patient. Interval History: Patient is participating in therapy and making reasonable progress. Taking rest breaks as needed. +BM. Denies palpitations, dyspnea, cough, N/V, weakness, or joint pain. Right BKA: Continue dressing changes every other day. Monitor for wound dehiscence and or infection. Antibiotics being continued due to fevers (99.8 on 05/24, 100.4 on 05/25). Stump protector on when out of bed. Continue rehab Hypertension: Blood pressure within reasonable range today, continue to monitor and adjust medications as needed for normotension while avoiding hypotension Postoperative anemia: Based on available labs this is likely a mixed anemia with a component of anemia of chronic disease and exacerbated by acute blood loss. As such, will replace vitamin B12, folate and iron on a limited basis and watch for improvement. Hemoglobin has dropped down to 7.7. Continue to monitor and t ransfuse if needed. Phantom sensation/pain: Patient today stated that he has started to have pain in the foot, discussed desensitization and will start gabapentin at nightly dose. Continue to monitor and continue desensitization. Constipation: Patient finally had a bowel movement, we will continue to monitor and continue medications for regularity Postoperative pain: Patient now stating that pain medication is not relieving the pain enough. Did have a lengthy discussion about pain medications and functional pain control as well as the expectation that pain would be completely resolved. Patient does not appear to be in acute distress but does state that his pain level is a 7/8. Peripheral vascular disease: No signs of cool limbs or decreased blood flow. Continue medications continue to monitor for any issues, reconsult vascular if needed ADL and mobility dysfunction: Patient making decent progress with physical therapy and Occupational Therapy. Continue therapy interventions and modalities in order to improve patient's mobility and independence. All records, vitals, labs and medications were reviewed. No other issues per patient, nursing or therapy. Objective - Exam Narrative Exam: MUSCULOSKELETAL SPECIALTY EXAM CONSTITUTIONAL: Well developed, well nourished, appropriately groomed RESPIRATORY: Clear to auscultation bilaterally, no increased work of breathing CARDIOVASCULAR: Regular Rate/ Rhythm, no swelling, edema or tenderness in BUE or BLE. All extremities warm. GI: + bowel sounds, soft, NTTP, nondistended. INTEGUMENTARY: Incision at right BKA site clean dry and intact and scattered blisters, otherwise normal, no lesion, rash, masses or bruising noted in extremities. Ampushield in place MUSCULOSKELETAL: Right BKA, BUE and LLE normal without defect, crepitus, subluxation, effusion, arthritic changes or TTP. BUE 4+/5, good ROM, with normal tone. BLE 4+/5 good ROM, with normal tone NEURO: CN 2-12 grossly intact. Sensation intact in all extremities. No tremor noted in 4 extremities. POSTURE and GAIT: Sitting posture good. Balance and gait deferred until seen with therapy. PSYCH: Alert, oriented x3, affect appears normal. Insight appears intact. - Constitutional Vitals: Vital Signs - 12hr 05/29/21 08:37 Temperature 98.2 F Pulse Rate 89 Respiratory 18 Rate Blood Pressure 145/80 O2 Sat by Pulse 96 Oximetry - Allied health notes Allied health notes reviewed: nursing, PT, OT FIMS assessment as documented by PT/OT/ST: Locomotion- walk/wheelchair Ambulation Distance 23 - Labs CBC & Chem 7: 05/27/21 19:00 05/27/21 19:00 Labs: Laboratory Results - last 72 hr 05/26/21 05/26/21 05/26/21 12:39 17:33 21:11 WBC RBC Hgb Hct MCV MCH MCHC RDW Plt Count Sodium Potassium Chloride Carbon Dioxide Anion Gap BUN Creatinine Estimated GFR BUN/Creatinine Ratio Glucose POC Glucose 168 H 186 H 225 H Calcium Iron TIBC Ferritin Vitamin B12 Folate 05/27/21 05/27/21 05/27/21 08:17 13:27 17:30 WBC RBC Hgb Hct MCV MCH MCHC RDW Plt Count Sodium Potassium Chloride Carbon Dioxide Anion Gap BUN Creatinine Estimated GFR BUN/Creatinine Ratio Glucose POC Glucose 143 H 122 H 145 H Calcium Iron TIBC Ferritin Vitamin B12 Folate 05/27/21 05/27/21 05/27/21 19:00 19:00 19:00 WBC 6.4 RBC 3.31 L Hgb 7.7 L Hct 23.3 L MCV 71 L MCH 23 L MCHC 33 RDW 15.4 H Plt Count 202 Sodium 134 L Potassium 3.8 Chloride 97.1 L Carbon Dioxide 25 Anion Gap 16 BUN 14 Creatinine 0.7 L Estimated GFR > 60 BUN/Creatinine Ratio 20 Glucose 201 H POC Glucose Calcium 8.6 Iron 19 L TIBC 186 L Ferritin 558.3 H Vitamin B12 Folate 05/27/21 05/27/21 05/27/21 19:00 19:00 20:40 WBC RBC Hgb Hct MCV MCH MCHC RDW Plt Count Sodium Potassium Chloride Carbon Dioxide Anion Gap BUN Creatinine Estimated GFR BUN/Creatinine Ratio Glucose POC Glucose 178 H Calcium Iron TIBC Ferritin Vitamin B12 312.1 Folate 5.22 L 05/28/21 05/28/21 05/28/21 12:01 16:17 20:25 WBC RBC Hgb Hct MCV MCH MCHC RDW Plt Count Sodium Potassium Chloride Carbon Dioxide Anion Gap BUN Creatinine Estimated GFR BUN/Creatinine Ratio Glucose POC Glucose 143 H 112 H 166 H Calcium Iron TIBC Ferritin Vitamin B12 Folate 05/29/21 05/29/21 08:21 12:23 WBC RBC Hgb Hct MCV MCH MCHC RDW Plt Count Sodium Potassium Chloride Carbon Dioxide Anion Gap BUN Creatinine Estimated GFR BUN/Creatinine Ratio Glucose POC Glucose 126 H 125 H Calcium Iron TIBC Ferritin Vitamin B12 Folate Assessment and Plan Right BKA: Dressing changed today with lateral drainage noted. Otherwise lucio were clean dry and intact. We will look to get the patient a clamshell stump protector as well as production supervisor off shift in the future once cleared for use. Have discussed with the patient the timeline and prognosis for BKA and obtaining a prosthesis. Will need to work with patient on improving mobility, transfers and fall recovery. We will look to discharge patient home with a wheelchair as he will be unable to perform MR ADLs from a safe position otherwise. Continue to monitor the surgical site for any signs of infection or dehiscence and contact surgeon if issues arise. Patient has been tachycardic as well as febrile x2. Will continue antibiotics for a 7 days and monitor for improvement. Consider reconsulting infectious disease if needed. Diabetes type 2: Insulin currently being adjusted to control the patient's diabetes. Continue carb controlled diet along with sliding scale insulin and we are starting long-acting insulin. Important for wound healing to keep glucose at a reasonable level. Improving on current dose, continue to monitor and adjust as needed Hypertension: Patient did not have any antihypertensives listed at time of admission and was not on any at time of discharge. Blood pressure has been intermittently elevated with a high of 195/105 as recently as 2 days ago. Have started lisinopril and will increase as needed to titrate for effect. Goal blo od pressure less than 140/80 while avoiding hypotension. Improving on current dose of lisinopril, continue to monitor and adjust, systolic blood pressure mainly in the 130s currently Postoperative anemia: Hemoglobin decreased from 11.3-7.7 since the surgery, microcytic in nature. Appears to be combined postsurgical and anemia of chronic disease. Replace nutrients and monitor for improvement Phantom sensation/pain: Discussed phantom pain with the patient and desensitization techniques. Start gabapentin qHS and escalate as needed. Continue modalities. Constipation: Have started scheduled as well as as needed medications, monitor for normal bowel movements and look to adjust as needed. Insomnia: Continue trazodone, sleep hygiene discussed, will monitor for effect and increase if needed. Postoperative pain: Patient now stating that the pain is not well controlled and he is experiencing sharp pain at the surgical site, denies any phantom pain currently. He is not receiving medication as frequently as he could but we have adjusted the medications and change to a [id number] oxycodone in order to help alleviate the pain and reduce issues with receiving too much Tylen ol. Naloxone as needed order added. Look to decrease pain medications as able with the patient utilizing lowest possible dose at time of discharge. Hyperlipidemia: Continue statin, monitor for any adverse side effects. Peripheral vascular disease status post stents: Continue aspirin and Plavix and monitor for worsening of symptoms. Reconsult vascular surgeon if necessary. Hyponatremia: Improved ADL dysfunction: OT will work on improving ability to perform ADLs (including assistive devices) to increase independence and decrease caregiver burden and improve functional transfers and mobility training. Difficulty walking: PT will work on gait training and proper use of assistive devices and advance as appropriate to use of stairs and outside ambulation on uneven surfaces. Unsteadiness on feet: PT will work on improving static and dynamic sitting and standing balance as well as proper use of assistive devices to decrease risk of falls. Abnormality of gait: PT will work to improve safety and efficiency of gait through neuromotor training and gait training along with instruction on proper use of assistive devices. Muscle weakness: PT & OT will work on strengthening exercises to improve functional strength including mixture of closed and open kinetic chain exercises. Debility: PT & OT will work on improving overall functional status to improve participation with ADLs, mobility and social involvement. Fatigue: PT & OT will work on improving endurance through aerobic exercises and therapeutic activity while monitoring patients tolerance for activity and vital signs as needed. DVT ppx: Lovenox Pain: Continue physical modalities in therapy and pain medications as needed to achieve functional pain control. Sleep: Monitor and address as needed. Bowel: Monitor and address as needed. Appetite: Monitor and address as needed. Discharge planning: Pending therapy progress and care plan meeting. Will continue discussion with therapy team, SW, patient. Look to discharge with a wheelchair and possibly bedside commode middle to end of next week. Restrictions/ Precautions: Falls, infection, stump protector on when out of bed WB status: FWB Functional Hx: ADLs: Independent Cognition: Independent Mobility: Cane occasional Barriers to Discharge: Decreased mobility and ability to perform self care, balance deficits, weakness Estimated Length of Stay: 1418 days Discharge Destination: Home to residential or possibly another home now
[2021-05-29] MEDS: GABAPENTIN 300 MG CAP PO SCH (22:46)
[2021-05-29] MEDS: INSULIN GLARGINE 100 UNITS/ML SUB-Q SCH (22:46)
[2021-05-29] MEDS: traZODone 50 MG TAB PO SCH (22:46)
[2021-05-30] MEDS: INSULIN LISPRO 100 UNIT/ML SUB-Q SCH ×4 (07:56→22:02)
[2021-05-30] MEDS: ENOXAPARIN 40 MG/0.4 ML INJ SUB-Q SCH (10:29)
[2021-05-30] MEDS: DOCUSATE SODIUM 100 MG CAP PO SCH ×2 (10:29→21:52)
[2021-05-30] MEDS: FERROUS SULFATE 325 MG TAB PO SCH ×2 (10:29→21:52)
[2021-05-30] MEDS: oxyCODONE 5 MG TAB PO PRN ×2 (10:29→17:26)
[2021-05-30] MEDS: ASPIRIN EC 81 MG TAB PO SCH (10:29)
[2021-05-30] MEDS: FOLIC ACID 1 MG TAB PO SCH (10:29)
[2021-05-30] MEDS: LISINOPRIL 10 MG TAB PO SCH (10:29)
[2021-05-30] MEDS: CLOPIDOGREL 75 MG TAB PO SCH (10:30)
[2021-05-30] MEDS: CYANOCOBALAMIN (VIT B-12) 1000 MCG TAB PO SCH (10:30)
[2021-05-30] MEDS: ASCORBIC ACID 250 MG TAB PO SCH ×2 (10:32→22:06)
--- NOTE | 2021-05-30 10:40 | Progress Note ---
Subjective Date of service: 05/30/21 Principal diagnosis: Right BKA Interval history: 60-year-old male with a history of a right diabetic foot ulcer which is previously under gone partial amputation. Patient developed continuing right foot pain and had a foul smelling wound. Work-up showed osteomyelitis on x-ray as well as MRI and antibiotics were started and surgery was consulted. Patient underwent debridement. Also underwent revascularization of the right lower extremity. 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 After the definitive treatment, infectious disease stated that the IV antibiotics could be stopped after 2 or 3 days postop. Wound cultures did grow out Proteus and beta- hemolytic strep group B. After the patient was medically stabilized they were transferred for further rehabilitation. All available medical records have been reviewed. Plan of care was discussed with patient. Interval History: Patient is participating in therapy and making reasonable progress. Taking rest breaks as needed. -BM. Denies palpitations, dyspnea, cough, N/V, weakness, or joint pain. Labs pending for today Right BKA: Continue dressing changes every other day. Monitor for wound dehiscence and or infection. Antibiotics being continued due to fevers (99.8 on 05/24, 100.4 on 05/25). Stump protector on when out of bed. Continue rehab Hypertension: Blood pressure within reasonable range, continue to monitor and adjust medications as needed for normotension while avoiding hypotension. Patient has been slightly tachycardic overnight. Postoperative anemia: Based on available labs this is likely a mixed anemia with a component of anemia of chronic disease and exacerbated by acute blood loss. As such, will replace vitamin B12, folate and iron on a limited basis and watch for improvement. Hemoglobin has dropped down to 7.7. Continue to monitor and transfuse if needed. 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 Continue to monitor Constipation: Patient finally had a bowel movement, we will continue to monitor and continue medications for regularity Postoperative pain: Patient now stating that pain medication is not relieving the pain enough. Did have a lengthy discussion about pain medications and functional pain control as well as the expectation that pain would be completely resolved. Patient does not appear to be in acute distress but does state that his pain level is a 7/8. Peripheral vascular disease: No signs of cool limbs or decreased blood flow. Continue medications continue to monitor for any issues, reconsult vascular if needed ADL and mobility dysfunction: Patient making decent progress with physical therapy and Occupational Therapy. Continue therapy interventions and modalities in order to improve patient's mobility and independence. All records, vitals, labs and medications were reviewed. No other issues per patient, nursing or therapy. Objective - Exam Narrative Exam: MUSCULOSKELETAL SPECIALTY EXAM CONSTITUTIONAL: Well developed, well nourished, appropriately groomed RESPIRATORY: Clear to auscultation bilaterally, no increased work of breathing CARDIOVASCULAR: Regular Rate/ Rhythm, no swelling, edema or tenderness in BUE or BLE. All ex tremities warm. GI: + bowel sounds, soft, NTTP, nondistended. INTEGUMENTARY: Incision at right BKA site clean dry and intact and scattered blisters, otherwise normal, no lesion, rash, masses or bruising noted in extremities. Ampushield in place MUSCULOSKELETAL: Right BKA, BUE and LLE normal without defect, crepitus, subluxation, effusion, arthritic changes or TTP. BUE 4+/5, good ROM, with normal tone. BLE 4+/5 good ROM, with normal tone NEURO: CN 2-12 grossly intact. Sensation intact in all extremities. No tremor noted in 4 extremities. POSTURE and GAIT: Sitting posture good. PSYCH: Alert, oriented x3, affect appears normal. Insight appears intact. - Constitutional Vitals: Vital Signs - 12hr 05/29/21 05/30/21 05/30/21 22:45 08:05 08:13 Temperature 99.0 F Pulse Rate 94 H Respiratory 20 18 18 Rate Blood Pressure 136/79 O2 Sat by Pulse 99 96 Oximetry - Allied health notes Allied health notes reviewed: nursing, PT, OT FIMS assessment as documented by PT/OT/ST: Locomotion- walk/wheelchair Ambulation Distance 23 - Labs CBC & Chem 7: 05/27/21 19:00 05/27/21 19:00 Labs: Laboratory Results - last 72 hr 05/27/21 05/27/21 05/27/21 13:27 17:30 19:00 WBC 6.4 RBC 3.31 L Hgb 7.7 L Hct 23.3 L MCV 71 L MCH 23 L MCHC 33 RDW 15.4 H Plt Count 202 Sodium Potassium Chloride Carbon Dioxide Anion Gap BUN Creatinine Estimated GFR BUN/Creatinine Ratio Glucose POC Glucose 122 H 145 H Calcium Iron TIBC Ferritin Vitamin B12 Folate 05/27/21 05/27/21 05/27/21 19:00 19:00 19:00 WBC RBC Hgb Hct MCV MCH MCHC RDW Plt Count Sodium 134 L Potassium 3.8 Chloride 97.1 L Carbon Dioxide 25 Anion Gap 16 BUN 14 Creatinine 0.7 L Estimated GFR > 60 BUN/Creatinine Ratio 20 Glucose 201 H POC Glucose Calcium 8.6 Iron 19 L TIBC 186 L Ferritin 558.3 H Vitamin B12 312.1 Folate 05/27/21 05/27/21 05/28/21 19:00 20:40 12:01 WBC RBC Hgb Hct MCV MCH MCHC RDW Plt Count Sodium Potassium Chloride Carbon Dioxide Anion Gap BUN Creatinine Estimated GFR BUN/Creatinine Ratio Glucose POC Glucose 178 H 143 H Calcium Iron TIBC Ferritin Vitamin B12 Folate 5.22 L 05/28/21 05/28/21 05/29/21 16:17 20:25 08:21 WBC RBC Hgb Hct MCV MCH MCHC RDW Plt Count Sodium Potassium Chloride Carbon Dioxide Anion Gap BUN Creatinine Estimated GFR BUN/Creatinine Ratio Glucose POC Glucose 112 H 166 H 126 H Calcium Iron TIBC Ferritin Vitamin B12 Folate 05/29/21 05/29/21 05/29/21 12:23 16:19 21:23 WBC RBC Hgb Hct MCV MCH MCHC RDW Plt Count Sodium Potassium Chloride Carbon Dioxide Anion Gap BUN Creatinine Estimated GFR BUN/Creatinine Ratio Glucose POC Glucose 125 H 184 H 156 H Calcium Iron TIBC Ferritin Vitamin B12 Folate 05/30/21 07:44 WBC RBC Hgb Hct MCV MCH MCHC RDW Plt Count Sodium Potassium Chloride Carbon Dioxide Anion Gap BUN Creatinine Estimated GFR BUN/Creatinine Ratio Glucose POC Glucose 120 H Calcium Iron TIBC Ferritin Vitamin B12 Folate Assessment and Plan Right BKA: Dressing changed today with lateral drainage noted. Otherwise lucio were clean dry and intact. We will look to get the patient a clamshell stump protector as well as print graphic designer in the future once cleared for use. Have discussed with the patient the timeline and prognosis for BKA and obtaining a prosthesis. Will need to work with patient on improving mobility, transfers and fall recovery. We will look to discharge patient home with a wheelchair as he w ill be unable to perform MR ADLs from a safe position otherwise. Continue to monitor the surgical site for any signs of infection or dehiscence and contact surgeon if issues arise. Patient has been tachycardic as well as febrile x2. Will continue antibiotics for a 7 days and monitor for improvement. Consider reconsulting infectious disease if needed. Diabetes type 2: Insulin currently being adjusted to control the patient's diabetes. Continue carb controlled diet along with sliding scale insulin and we are starting long-acting insulin. Improving on current dose, continue to monitor and adjust as needed Hypertension: Patient did not have any antihypertensives listed at time of admission and was not on any at time of discharge. Blood pressure has been intermittently elevated with a high of 195/105 as recently as 2 days ago. Have started lisinopril and will increase as needed to titrate for effect. Goal blood pressure less than 140/80 while avoiding hypotension. Improving on current dose of lisinopril, continue to monitor and adjust, systolic blood pressure mainly in the 130s currently Postoperative anemia: Hemoglobin decreased from 11.3-7.7 since the surgery, microcytic in nature. Appears to be combined postsurgical and anemia of chronic disease. Replace nutrients and monitor for improvement. Labs pending today Phantom sensation/pain: Discussed phantom pain with the patient and desensitization techniques. Start gabapentin qHS and escalate as needed. Continue modalities. Constipation: Have started scheduled as well as as needed medications, monitor for normal bowel movements and look to adjust as needed. Insomnia: Continue trazodone, sleep hygiene discussed, will monitor for effect and increase if needed. Postoperative pain: Patient now stating that the pain is not well controlled and he is experiencing sharp pain at the surgical site, denies any phantom pain currently. He is not receiving medication as frequently as he could but we have adjusted the medications and change to a [id number] oxycodone in order to help alleviate the pain and reduce issues with receiving too much Tylenol. Naloxone as needed order added. Look to decrease pain medications as able with the patient utilizing lowest possible dose at time of discharge. Hyperlipidemia: Continue statin, monitor for any adverse side effects. Peripheral vascular disease status post stents: Continue aspirin and Plavix and monitor for worsening of symptoms. Reconsult vascular surgeon if necessary. Hyponatremia: Improved ADL dysfunction: OT will work on improving ability to perform ADLs (including assistive devices) to increase independence and decrease caregiver burden and improve functional transfers and mobility training. Difficulty walking: PT will work on gait training and proper use of assistive devices and advance as appropriate to use of stairs and outside ambulation on uneven surfaces. Unsteadiness on feet: PT will work on improving static and dynamic sitting and standing balance as well as proper use of assistive devices to decrease risk of falls. Abnormality of gait: PT will work to improve safety and efficiency of gait through neuromotor training and gait training along with instruction on proper use of assistive devices. Muscle weakness: PT & OT will work on strengthening exercises to improve functional strength including mixture of closed and open kinetic chain exercises. Debility: PT & OT will work on improving overall functional status to improve participation with ADLs, mobility and social involvement. Fatigue: PT & OT will work on improving endurance through aerobic exercises and therapeutic activity while monitoring patients tolerance for activity and vital signs as needed. DVT ppx: Lovenox Pain: Continue physical modalities in therapy and pain medications as needed to achieve functional pain control. Sleep: Monitor and address as needed. Bowel: Monitor and address as needed. Appetite: Monitor and address as needed. Discharge planning: Pending therapy progress and care plan meeting. Will continue discussion with therapy team, SW, patient. Look to discharge with a wheelchair and possibly bedside commode middle to end of next week. Restrictions/ Precautions: Falls, infection, stump protector on when out of bed WB status: FWB Functional Hx: ADLs: Independent Cognition: Independent Mobility: Cane occasional Barriers to Discharge: Decreased mobility and ability to perform self care, balance deficits, weakness Estimated Length of Stay: 1418 days Discharge Destination: Home to halfway or possibly another home now
[2021-05-30] MEDS: cefTRIAXone/NS 2 GM/100 ML 2 GM/100 ML BAG IV SCH (13:03)
[2021-05-30] MEDS: ACETAMINOPHEN 325 MG TAB PO PRN (13:06)
[2021-05-30 13:36] LABS: Hemoglobin 9.3 gm/dl (11.8-15.2); Mean Corpuscular HGB Conc 32 % (32-34); Mean Corpuscular Volume 71 fl (84-94); Platelet Count 319 K/mm3 (140-440); Red Blood Count 4.05 M/mm3 (3.65-5.03)
[2021-05-30 15:02] LABS: BUN/Creatinine Ratio 18; Blood Urea Nitrogen 14 mg/dL (9-20); Calcium 9.6 mg/dL (8.4-10.2); Hemolysis Index 0
[2021-05-30] MEDS: GABAPENTIN 300 MG CAP PO SCH (21:52)
[2021-05-30] MEDS: traZODone 50 MG TAB PO SCH (21:53)
[2021-05-30] MEDS: INSULIN GLARGINE 100 UNITS/ML SUB-Q SCH (21:54)
[2021-05-30] MEDS: oxyCODONE /ACETAMINOPHEN 5-325MG TAB PO PRN (21:58)
[2021-05-31] MEDS: INSULIN LISPRO 100 UNIT/ML SUB-Q SCH ×4 (08:30→21:16)
[2021-05-31] MEDS: ENOXAPARIN 40 MG/0.4 ML INJ SUB-Q SCH (09:31)
[2021-05-31] MEDS: CLOPIDOGREL 75 MG TAB PO SCH (09:32)
[2021-05-31] MEDS: DOCUSATE SODIUM 100 MG CAP PO SCH ×2 (09:32→21:22)
[2021-05-31] MEDS: FOLIC ACID 1 MG TAB PO SCH (09:32)
[2021-05-31] MEDS: ASPIRIN EC 81 MG TAB PO SCH (09:32)
[2021-05-31] MEDS: LISINOPRIL 10 MG TAB PO SCH (09:32)
[2021-05-31] MEDS: FERROUS SULFATE 325 MG TAB PO SCH ×2 (09:32→21:22)
[2021-05-31] MEDS: CYANOCOBALAMIN (VIT B-12) 1000 MCG TAB PO SCH (09:32)
[2021-05-31] MEDS: ASCORBIC ACID 250 MG TAB PO SCH ×2 (09:32→21:22)
[2021-05-31] MEDS: oxyCODONE 5 MG TAB PO PRN ×2 (09:37→18:04)
[2021-05-31] MEDS: cefTRIAXone/NS 2 GM/100 ML 2 GM/100 ML BAG IV SCH (10:25)
--- NOTE | 2021-05-31 12:30 | Progress Note ---
Subjective Date of service: 05/31/21 Principal diagnosis: Right BKA Interval history: 60-year-old male with a history of a right diabetic foot ulcer which is previously under gone partial amputation. Patient developed continuing right foot pain and had a foul smelling wound. Work-up showed osteomyelitis on x-ray as well as MRI and antibiotics were started and surgery was consulted. Patient underwent debridement. Also underwent revascularization of the right lower extremity. 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 After the definitive treatment, infectious disease stated that the IV antibiotics could be stopped after 2 or 3 days postop. Wound cultures did grow out Proteus and beta- hemolytic strep group B. After the patient was medically stabilized they were transferred for further rehabilitation. All available medical records have been reviewed. Plan of care was discussed with patient. Interval History: Patient is participating in therapy and making reasonable progress. Taking rest breaks as needed. -BM. Denies palpitations, dyspnea, cough, N/V, weakness, or joint pain. Headache, mild patient taking Tylenol and pain medicines, monitor Right BKA: Continue dressing changes every other day. Monitor for wound dehiscence and or infection. Antibiotics being continued due to fevers (99.8 on 05/24, 100.4 on 05/25). Stump protector on when out of bed. Continue rehab Hypertension: Blood pressure within reasonable range, continue to monitor and adjust medications as needed for normotension while avoiding hypotension. Patient has been slightly tachycardic overnight. Postoperative anemia: Based on available labs this is likely a mixed anemia with a component of anemia of chronic disease and exacerbated by acute blood loss. As such, will replace vitamin B12, folate and iron on a limited basis and watch for improvement. Continue to monitor and transfuse if needed. 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 Continue to monitor Constipation: continue to monitor and continue medications for regularity Postoperative pain: Pain medications seem to be working fairly well at current dosing. Discussed pain medications and functional pain control as well as the expectation that pain would be completely resolved. Improved Peripheral vascular disease: No signs of cool limbs or decreased blood flow. Continue medications continue to monitor for any issues, reconsult vascular if needed ADL and mobility dysfunction: Patient making decent progress with physical therapy and Occupational Therapy. Continue therapy interventions and modalities in order to improve patient's mobility and independence. All records, vitals, labs and medications were reviewed. No other issues per patient, nursing or therapy. Objective - Exam Narrative Exam: MUSCULOSKELETAL SPECIALTY EXAM CONSTITUTIONAL: Well developed, well nourished, appropriately groomed RESPIRATORY: Clear to auscultation bilaterally, no increased work of breathing CARDIOVASCULAR: Regular Rate/ Rhythm, no swelling, edema or tenderness in BUE or BLE. All extremities warm. GI: + bowel sounds, soft, NTTP, nondistended. INTEGUMENTARY: Incision at right BKA site clean dry and intact and scattered blisters, otherwise normal, no lesion, rash, masses or bruising noted in extremities. Ampushield in place MUSCULOSKELETAL: Right BKA, BUE and LLE normal without defect, crepitus, subluxation, effusion, arthritic changes or TTP. BUE 4+/5, good ROM, with normal tone. BLE 4+/5 good ROM, with normal tone NEURO: Sensation intact in all extremities. No tremor noted in 4 extremities. POSTURE and GAIT: Sitting posture good. PSYCH: Alert, oriented x3, affect appears normal. Insight appears intact. - Constitutional Vitals: Vital Signs - 12hr 05/31/21 08:18 Temperature 99.4 F Pulse Rate 92 H Respiratory 20 Rate Blood Pressure 129/75 O2 Sat by Pulse 96 Oximetry - Allied health notes Allied health notes reviewed: nursing, PT, OT FIMS assessment as documented by PT/OT/ST: Locomotion- walk/wheelchair Ambulation Distance 23 - Labs CBC & Chem 7: 05/30/21 13:11 05/30/21 07:00 Labs: Laboratory Results - last 72 hr 05/28/21 05/28/21 05/29/21 16:17 20:25 08:21 WBC RBC Hgb Hct MCV MCH MCHC RDW Plt Count Sodium Potassium Chloride Carbon Dioxide Anion Gap BUN Creatinine Estimated GFR BUN/Creatinine Ratio Glucose POC Glucose 112 H 166 H 126 H Calcium 05/29/21 05/29/21 05/29/21 12:23 16:19 21:23 WBC RBC Hgb Hct MCV MCH MCHC RDW Plt Count Sodium Potassium Chloride Carbon Dioxide Anion Gap BUN Creatinine Estimated GFR BUN/Creatinine Ratio Glucose POC Glucose 125 H 184 H 156 H Calcium 05/30/21 05/30/21 05/30/21 07:00 07:44 12:55 WBC RBC Hgb Hct MCV MCH MCHC RDW Plt Count Sodium 138 Potassium 4.6 D Chloride 98.8 Carbon Dioxide 25 Anion Gap 19 BUN 14 Creatinine 0.8 Estimated GFR > 60 BUN/Creatinine Ratio 18 Glucose 122 H POC Glucose 120 H 110 H Calcium 9.6 05/30/21 05/30/21 05/30/21 13:11 16:22 21:10 WBC 7.6 RBC 4.05 Hgb 9.3 L Hct 29.0 L MCV 71 L MCH 23 L MCHC 32 RDW 16.0 H Plt Count 319 Sodium Potassium Chloride Carbon Dioxide Anion Gap BUN Creatinine Estimated GFR BUN/Creatinine Ratio Glucose POC Glucose 154 H 149 H Calcium 05/31/21 08:17 WBC RBC Hgb Hct MCV MCH MCHC RDW Plt Count Sodium Potassium Chloride Carbon Dioxide Anion Gap BUN Creatinine Estimated GFR BUN/Creatinine Ratio Glucose POC Glucose 163 H Calcium Assessment and Plan Right BKA: Dressing changed today with lateral drainage noted. Otherwise ulcio were clean dry and intact. We will look to get the patient a clamshell stump protector as well as reference assistant in the future once cleared for use. Have discussed with the patient the timeline and prognosis for BKA and obtaining a prosthesis. Will need to work with patient on improving mobility, transfers and fall recovery. We will look to discharge patient home with a wheelchair as he will be unable to perform MR ADLs from a safe position otherwise. Continue to monitor the surgical site for any signs of infection or dehiscence and contact surgeon if issues arise. Patient has been tachycardic as well as febrile x2. Will continue antibiotics for a 7 days and monitor for improvement. Consider reconsulting infectious disease if needed. Diabetes type 2: Insulin currently being adjusted to control the patient's diabetes. Continue carb controlled diet along with sliding scale insulin and we are starting long-acting insulin. Improving on current dose, continue to monitor and adjust as needed Hypertension: Patient did not have any antihypertensives listed at time of a dmission and was not on any at time of discharge. Blood pressure has been intermittently elevated with a high of 195/105 as recently as 2 days ago. Have started lisinopril and will increase as needed to titrate for effect. Goal blood pressure less than 140/80 while avoiding hypotension. Improving on current dose of lisinopril, continue to monitor and adjust, systolic blood pressure mainly in the 130s currently Postoperative anemia: Hemoglobin decreased from 11.3-7.7 since the surgery, microcytic in nature. Appears to be combined postsurgical and anemia of chronic disease. Replace nutrients and monitor for improvement. Improved to 9.3, continue to monitor Phantom sensation/pain: Discussed phantom pain with the patient and desensitization techniques. Start gabapentin qHS and escalate as needed. Continue modalities. Constipation: Have started scheduled as well as as needed medications, monitor for normal bowel movements and look to adjust as needed. Insomnia: Continue trazodone, sleep hygiene discussed, will monitor for effect and increase if needed. Postoperative pain: Patient now stating that the pain is not well controlled and he is experiencing sharp pain at the surgical site, denies any phantom pain currently. He is not receiving medication as frequently as he could but we have adjusted the medications and change to a [id number] oxycodone in order to help alleviate the pain and reduce issues with receiving too much Tylenol. Naloxone as needed order added. Look to decrease pain medications as able with the patient utilizing lowest possible dose at time of discharge. Hyperlipidemia: Continue statin, monitor for any adverse side effects. Peripheral vascular disease status post stents: Continue aspirin and Plavix and monitor for worsening of symptoms. Reconsult vascular surgeon if necessary. Hyponatremia: Improved ADL dysfunction: OT will work on improving ability to perform ADLs (including assistive devices) to increase independence and decrease caregiver burden and improve functional transfers and mobility training. Difficulty walking: PT will work on gait training and proper use of assistive devices and advance as appropriate to use of stairs and outside ambulation on uneven surfaces. Unsteadiness on feet: PT will work on improving static and dynamic sitting and standing balance as well as proper use of assistive devices to decrease risk of falls. Abnormality of gait: PT will work to improve safety and efficiency of gait through neuromotor training and gait training along with instruction on proper use of assistive devices. Muscle weakness: PT & OT will work on strengthening exercises to improve functional strength including mixture of closed and open kinetic chain exercises. Debility: PT & OT will work on improving overall functional status to improve participation with ADLs, mobility and social involvement. Fatigue: PT & OT will work on improving endurance through aerobic exercises and therapeutic activity while monitoring patients tolerance for activity and vital signs as needed. DVT ppx: Lovenox Pain: Continue physical modalities in therapy and pain medications as needed to achieve functional pain control. Sleep: Monitor and address as needed. Bowel: Monitor and address as needed. Appetite: Monitor and address as needed. Discharge planning: Pending therapy progress and care plan meeting. Will continue discussion with therapy team, SW, patient. Look to discharge with a wheelchair and possibly bedside commode middle to end of next week. Restrictions/ Precautions: Falls, infection, stump protector on when out of bed WB status: FWB Functional Hx: ADLs: Independent Cognition: Independent Mobility: Cane occasional Barriers to Discharge: Decreased mobility and ability to perform self care, balance deficits, weakness Estimated Length of Stay: 1418 days Discharge Destination: Home to halfway or possibly another home now
[2021-05-31] MEDS: oxyCODONE /ACETAMINOPHEN 5-325MG TAB PO PRN ×2 (16:15→21:23)
[2021-05-31] MEDS: traZODone 50 MG TAB PO SCH (21:22)
[2021-05-31] MEDS: GABAPENTIN 300 MG CAP PO SCH (21:23)
[2021-05-31] MEDS: INSULIN GLARGINE 100 UNITS/ML SUB-Q SCH (22:18)
[2021-06-01] MEDS: oxyCODONE /ACETAMINOPHEN 5-325MG TAB PO PRN ×2 (02:41→21:05)
[2021-06-01] MEDS: oxyCODONE 5 MG TAB PO PRN (08:05)
[2021-06-01] MEDS: INSULIN LISPRO 100 UNIT/ML SUB-Q SCH ×4 (08:05→21:08)
[2021-06-01] MEDS: ASPIRIN EC 81 MG TAB PO SCH (09:08)
[2021-06-01] MEDS: DOCUSATE SODIUM 100 MG CAP PO SCH ×2 (09:08→21:05)
[2021-06-01] MEDS: ASCORBIC ACID 250 MG TAB PO SCH ×2 (09:08→21:05)
[2021-06-01] MEDS: CYANOCOBALAMIN (VIT B-12) 1000 MCG TAB PO SCH (09:08)
[2021-06-01] MEDS: ENOXAPARIN 40 MG/0.4 ML INJ SUB-Q SCH (09:08)
[2021-06-01] MEDS: FERROUS SULFATE 325 MG TAB PO SCH ×2 (09:08→21:05)
[2021-06-01] MEDS: CLOPIDOGREL 75 MG TAB PO SCH (09:09)
[2021-06-01] MEDS: LISINOPRIL 10 MG TAB PO SCH (09:09)
[2021-06-01] MEDS: FOLIC ACID 1 MG TAB PO SCH (09:09)
[2021-06-01] MEDS: GABAPENTIN 300 MG CAP PO SCH (21:04)
[2021-06-01] MEDS: traZODone 50 MG TAB PO SCH (21:04)
[2021-06-01] MEDS: INSULIN GLARGINE 100 UNITS/ML SUB-Q SCH (21:05)
[2021-06-02] MEDS: oxyCODONE /ACETAMINOPHEN 5-325MG TAB PO PRN ×3 (05:06→21:28)
[2021-06-02] MEDS: FOLIC ACID 1 MG TAB PO SCH (09:32)
[2021-06-02] MEDS: FERROUS SULFATE 325 MG TAB PO SCH ×2 (09:32→21:27)
[2021-06-02] MEDS: ASCORBIC ACID 250 MG TAB PO SCH ×2 (09:32→21:27)
[2021-06-02] MEDS: LISINOPRIL 10 MG TAB PO SCH (09:32)
[2021-06-02] MEDS: INSULIN LISPRO 100 UNIT/ML SUB-Q SCH ×4 (09:32→22:00)
[2021-06-02] MEDS: DOCUSATE SODIUM 100 MG CAP PO SCH ×2 (09:32→21:26)
[2021-06-02] MEDS: CLOPIDOGREL 75 MG TAB PO SCH (09:32)
[2021-06-02] MEDS: ENOXAPARIN 40 MG/0.4 ML INJ SUB-Q SCH (09:33)
[2021-06-02] MEDS: CYANOCOBALAMIN (VIT B-12) 1000 MCG TAB PO SCH (09:39)
[2021-06-02] MEDS: ASPIRIN EC 81 MG TAB PO SCH (09:40)
[2021-06-02] MEDS: oxyCODONE 5 MG TAB PO PRN (14:43)
[2021-06-02] MEDS: GABAPENTIN 300 MG CAP PO SCH (21:27)
[2021-06-02] MEDS: INSULIN GLARGINE 100 UNITS/ML SUB-Q SCH (21:29)
[2021-06-02] MEDS: traZODone 50 MG TAB PO SCH (23:42)
[2021-06-03] MEDS: LISINOPRIL 10 MG TAB PO SCH (09:21)
[2021-06-03] MEDS: ASCORBIC ACID 250 MG TAB PO SCH ×2 (09:21→21:49)
[2021-06-03] MEDS: ENOXAPARIN 40 MG/0.4 ML INJ SUB-Q SCH (09:21)
[2021-06-03] MEDS: FOLIC ACID 1 MG TAB PO SCH (09:21)
[2021-06-03] MEDS: ASPIRIN EC 81 MG TAB PO SCH (09:21)
[2021-06-03] MEDS: CLOPIDOGREL 75 MG TAB PO SCH (09:21)
[2021-06-03] MEDS: CYANOCOBALAMIN (VIT B-12) 1000 MCG TAB PO SCH (09:21)
[2021-06-03] MEDS: FERROUS SULFATE 325 MG TAB PO SCH ×2 (09:21→21:48)
--- NOTE | 2021-06-03 09:21 | Progress Note ---
Subjective Date of service: 06/03/21 Principal diagnosis: Right BKA Interval history: 60-year-old male with a history of a right diabetic foot ulcer which is previously under gone partial amputation. Patient developed continuing right foot pain and had a foul smelling wound. Work-up showed osteomyelitis on x-ray as well as MRI and antibiotics were started and surgery was consulted. Patient underwent debridement. Also underwent revascularization of the right lower extremity. 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 After the definitive treatment, infectious disease stated that the IV antibiotics could be stopped after 2 or 3 days postop. Wound cultures did grow out Proteus and beta- hemolytic strep group B. After the patient was medically stabilized they were transferred for further rehabilitation. All available medical records have been reviewed. Plan of care was discussed with patient. Interval History: Patient is participating in therapy and making reasonable progress. Taking rest breaks as needed. +BM. Denies palpitations, dyspnea, cough, weakness, or joint pain. Admits to headache and nausea/ vomiting today. Right BKA: Continue dressing changes every other day. Monitor for wound dehiscence and or infection. Antibiotics being continued due to fevers (99.8 on 05/24, 100.4 on 05/25). Stump protector on when out of bed. Continue rehab Hypertension: Blood pressure within reasonable range, continue to monitor and adjust medications as needed for normotension while avoiding hypotension. Patient has been slightly tachycardic overnight. Postoperative anemia: Based on available labs this is likely a mixed anemia with a component of anemia of chronic disease and exacerbated by acute blood loss. As such, will replace vitamin B12, folate and iron on a limited basis and watch for improvement. Continue to monitor and transfuse if needed. 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 Continue to monitor Headache: Has been intermittent since Thursday, patient states he gets these at home and typically takes ibuprofen. Have started ibuprofen instead of Tylenol. Nausea/vomiting: Patient states that he had episode of vomiting this morning which was preceded by what sounds like acid reflux with burning in the esophageal area. Will start Protonix and monitor for improvement. Constipation: continue to monitor and continue medications for regularity Postoperative pain: Pain medications seem to be working fairly well at current dosing. Discussed pain medications and functional pain control as well as the expectation that pain would be completely resolved. Improved Peripheral vascular disease: No signs of cool limbs or decreased blood flow. Continue medications continue to monitor for any issues, reconsult vascular if needed ADL and mobility dysfunction: Patient making decent progress with physical therapy and Occupational Therapy. Continue therapy interventions and modalities in order to improve patient's mobility and independence. All records, vitals, labs and medications were reviewed. No other issues per patient, nursing or therapy. Objective - Exam Narrative Exam: MUSCULOSKELETAL SPECIALTY EXAM CONSTITUTIONAL: Well developed, well nourished, appropriately groomed RESPIRATORY: Clear to auscultation bilaterally, no increased work of breathing CARDIOVASCULAR: Regular Rate/ Rhythm, no swelling, edema or tenderness in BUE or BLE. All extremities warm. GI: + bowel sounds, soft, NTTP, nondistended. INTEGUMENTARY: Incision at right BKA site clean dry and intact and scattered blisters, otherwise normal, no lesion, rash, masses or bruising noted in extremities. Ampu shield in place MUSCULOSKELETAL: Right BKA, BUE and LLE normal without defect, crepitus, subluxation, effusion, arthritic changes or TTP. BUE 4+/5, good ROM, with normal tone. BLE 4+/5 good ROM, with normal tone NEURO: Sensation intact in all extremities. No tremor noted in 4 extremities. POSTURE and GAIT: Sitting posture good. PSYCH: Alert, oriented x3, affect appears normal. Insight appears intact. - Constitutional Vitals: Vital Signs - 12hr 06/02/21 06/03/21 06/03/21 22:00 03:53 08:08 Temperature 98.0 F 97.7 F Pulse Rate 93 H 86 Respiratory 12 18 Rate Blood Pressure 138/80 103/70 Blood Pressure 103/70 [Left] O2 Sat by Pulse 98 98 97 Oximetry - Allied health notes Allied health notes reviewed: nursing, PT, OT FIMS assessment as documented by PT/OT/ST: Locomotion- walk/wheelchair Ambulation Distance 23 - Labs CBC & Chem 7: 05/30/21 13:11 05/30/21 07:00 Labs: Laboratory Results - last 72 hr 05/31/21 05/31/21 05/31/21 12:25 16:45 20:09 POC Glucose 129 H 165 H 124 H 06/01/21 06/01/21 06/01/21 07:57 11:18 15:46 POC Glucose 169 H 203 H 114 H 06/01/21 06/02/21 06/02/21 20:24 07:30 11:40 POC Glucose 201 H 153 H 219 H 06/02/21 06/02/21 06/03/21 15:43 19:58 07:44 POC Glucose 155 H 169 H 159 H Assessment and Plan Right BKA: Dressing changed today with lateral drainage noted. Otherwise lucio were clean dry and intact. We will look to get the patient a clamshell stump protector as well as supervisor instrument repair in the future once cleared for use. Have discussed with the patient the timeline and prognosis for BKA and obtaining a prosthesis. Will need to work with patient on improving mobility, transfers and fall recovery. We will look to discharge patient home with a wheelchair as he will be unable to perform MR ADLs from a safe position otherwise. Continue to monitor the surgical site for any signs of infection or dehiscence and contact surgeon if issues arise. No more fevers and tachycardia has improved Diabetes type 2: Insulin currently being adjusted to control the patient's diabetes. Continue carb controlled diet along with sliding scale insulin and we are starting long-acting insulin. Improving on current dose, continue to monitor and adjust as needed Hypertension: Patient did not have any antihypertensives listed at time of admission and was not on any at time of discharge. Blood pressure has been intermittently elevated with a high of 195/105 as recently as 2 days ago. Have started lisinopril and will increase as needed to titrate for effect. Goal blood pressure less than 140/80 while avoiding hypotension. Improving on current dose of lisinopril, continue to monitor and adjust, systolic blood pressure mainly in the 130s currently Postoperative anemia: Hemoglobin decreased from 11.3-7.7 since the surgery, microcytic in nature. Appears to be combined postsurgical and anemia of chronic disease. Replace nutrients and monitor for improvement. Improved to 9.3, continue to monitor Phantom sensation/pain: Discussed phantom pain with the patient and desensitization techniques. Start gabapentin qHS and escalate as needed. Continue modalities. Headache: Ibuprofen and monitor for improvement Nausea/vomiting: Seems to be related to possible acid reflux. Start PPI and m onitor for improvement. Constipation: Have started scheduled as well as as needed medications, monitor for normal bowel movements and look to adjust as needed. Insomnia: Continue trazodone, sleep hygiene discussed, will monitor for effect and increase if needed. Postoperative pain: Patient now stating that the pain is not well controlled and he is experiencing sharp pain at the surgical site, denies any phantom pain currently. He is not receiving medication as frequently as he could but we have adjusted the medications and change to a [id number] oxycodone in order to help alleviate the pain and reduce issues with receiving too much Tylenol. Naloxone as needed order added. Look to decrease pain medications as able with the patient utilizing lowest possible dose at time of discharge. Hyperlipidemia: Continue statin, monitor for any adverse side effects. Peripheral vascular disease status post stents: Continue aspirin and Plavix and monitor for worsening of symptoms. Reconsult vascular surgeon if necessary. Hyponatremia: Improved ADL dysfunction: OT will work on improving ability to perform ADLs (including assistive devices) to increase independence and decrease caregiver burden and improve functional transfers and mobility training. Difficulty walking: PT will work on gait training and proper use of assistive devices and advance as appropriate to use of stairs and outside ambulation on uneven surfaces. Unsteadiness on feet: PT will work on improving static and dynamic sitting and standing balance as well as proper use of assistive devices to decrease risk of falls. Abnormality of gait: PT will work to improve safety and efficiency of gait through neuromotor training and gait training along with instruction on proper use of assistive devices. Muscle weakness: PT & OT will work on strengthening exercises to improve functional strength including mixture of closed and open kinetic chain exercises. Debility: PT & OT will work on improving overall functional status to improve participation with ADLs, mobility and social involvement. Fatigue: PT & OT will work on improving endurance through aerobic exercises and therapeutic activity while monitoring patients tolerance for activity and vital signs as needed. DVT ppx: Lovenox Pain: Continue physical modalities in therapy and pain medications as needed to achieve functional pain control. Sleep: Monitor and address as needed. Bowel: Monitor and address as needed. Appetite: Monitor and address as needed. Discharge planning: Pending therapy progress and care plan meeting. Will cont inue discussion with therapy team, SW, patient. Look to discharge with a wheelchair and possibly bedside commode middle to end of next week. Restrictions/ Precautions: Falls, infection, stump protector on when out of bed WB status: FWB Functional Hx: ADLs: Independent Cognition: Independent Mobility: Cane occasional Barriers to Discharge: Decreased mobility and ability to perform self care, balance deficits, weakness Estimated Length of Stay: 1418 days Discharge Destination: Home to longterm or possibly another home now
[2021-06-03] MEDS: INSULIN LISPRO 100 UNIT/ML SUB-Q SCH ×4 (09:22→22:00)
[2021-06-03] MEDS: ACETAMINOPHEN 325 MG TAB PO PRN ×2 (09:26→21:51)
[2021-06-03] MEDS ORDERED: IBUPROFEN 600 MG TAB PO PRN (09:30)
[2021-06-03 10:06] LABS: Hematocrit 29.2 % (35.5-45.6); Hemoglobin 9.6 gm/dl (11.8-15.2); Mean Corpuscular HGB Conc 33 % (32-34); Mean Corpuscular Volume 71 fl (84-94); Platelet Count 323 K/mm3 (140-440); Red Blood Count 4.09 M/mm3 (3.65-5.03)
[2021-06-03] MEDS: DOCUSATE SODIUM 100 MG CAP PO SCH ×2 (13:46→21:48)
[2021-06-03] MEDS: oxyCODONE /ACETAMINOPHEN 5-325MG TAB PO PRN (13:50)
[2021-06-03] MEDS: PANTOPRAZOLE 20 MG TAB PO SCH (13:50)
[2021-06-03] MEDS: oxyCODONE 5 MG TAB PO PRN (21:49)
[2021-06-03] MEDS: GABAPENTIN 300 MG CAP PO SCH (21:49)
[2021-06-03] MEDS: INSULIN GLARGINE 100 UNITS/ML SUB-Q SCH (22:00)
[2021-06-04] MEDS: traZODone 50 MG TAB PO SCH ×2 (00:30→21:43)
[2021-06-04] MEDS: ASPIRIN EC 81 MG TAB PO SCH (09:25)
[2021-06-04] MEDS: DOCUSATE SODIUM 100 MG CAP PO SCH ×2 (09:25→21:43)
[2021-06-04] MEDS: ENOXAPARIN 40 MG/0.4 ML INJ SUB-Q SCH (09:25)
[2021-06-04] MEDS: LISINOPRIL 10 MG TAB PO SCH (09:26)
[2021-06-04] MEDS: ASCORBIC ACID 250 MG TAB PO SCH (09:26)
[2021-06-04] MEDS: PANTOPRAZOLE 20 MG TAB PO SCH (09:27)
[2021-06-04] MEDS: CLOPIDOGREL 75 MG TAB PO SCH (09:27)
[2021-06-04] MEDS: INSULIN LISPRO 100 UNIT/ML SUB-Q SCH ×4 (09:27→21:42)
[2021-06-04] MEDS: FOLIC ACID 1 MG TAB PO SCH (09:27)
[2021-06-04] MEDS: oxyCODONE /ACETAMINOPHEN 5-325MG TAB PO PRN ×2 (09:29→17:52)
--- NOTE | 2021-06-04 11:40 | Progress Note ---
Subjective Date of service: 06/04/21 Principal diagnosis: Right BKA Interval history: 60-year-old male with a history of a right diabetic foot ulcer which is previously under gone partial amputation. Patient developed continuing right foot pain and had a foul smelling wound. Work-up showed osteomyelitis on x-ray as well as MRI and antibiotics were started and surgery was consulted. Patient underwent debridement. Also underwent revascularization of the right lower extremity. 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 After the definitive treatment, infectious disease stated that the IV antibiotics could be stopped after 2 or 3 days postop. Wound cultures did grow out Proteus and beta- hemolytic strep group B. After the patient was medically stabilized they were transferred for further rehabilitation. All available medical records have been reviewed. Plan of care was discussed with patient. Interval History: Patient is participating in therapy and making reasonable progress. Taking rest breaks as needed. +BM. Denies palpitations, dyspnea, cough, weakness, or joint pain. Seems to be feeling better today, patient was unable to dissipate with therapy yesterday due to nausea, vomiting and headache. Does not report nausea/vomiting or headache today Right BKA: Continue dressing changes every other day. Monitor for wound dehiscence and or infection. Completed 7-day course of Rocephin with no further fevers noted. Will contact vascular surgery for follow-up appointment. Will s tart patient on short course of Keflex due to redness around incision. Stump protector on when out of bed. Continue rehab Hypertension: Blood pressure within reasonable range, continue to monitor and adjust medications as needed for normotension while avoiding hypotension. Postoperative anemia: Based on available labs this is likely a mixed anemia with a component of anemia of chronic disease and exacerbated by acute blood loss. As such, will replace vitamin B12, folate and iron on a limited basis and watch for improvement. Continue to monitor and transfuse if needed. 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 Continue to monitor Headache: Has been intermittent since Thursday, patient states he gets these at home and typically takes ibuprofen. Have started ibuprofen instead of Tylenol. Nausea/vomiting: Patient states that he had episode of vomiting this morning which was preceded by what sounds like acid reflux with burning in the esophageal area. Will start Protonix and monitor for improvement. No vomiting reported today Constipation: continue to monitor and continue medications for regularity Postoperative pain: Pain medications seem to be working fairly well at current dosing. Discussed pain medications and functional pain control as well as the expectation that pain would be completely resolved. Improved Peripheral vascular disease: No signs of cool limbs or decreased blood flow. Continue medications continue to monitor for any issues, reconsult vascular if needed ADL and mobility dysfunction: Patient making decent progress with physical therapy and Occupational Therapy. Continue therapy interventions and modalities in order to improve patient's mobility and independence. All records, vitals, labs and medications were reviewed. No other issues per patient, nursing or therapy. Patient discussed today during team conference, making good progress overall. Look to discharge patient tomorrow. Will have family training today prior to discharge. At discharge, patient will need a wheelchair, shower and bedside commode. As far as a wheelchair, patient is a right-sided below the knee amputation and is unable to safely perform MR ADLs from the standing position utilizing all lesser assistive devices, which have been attempted, due to poor balance with the missing limb. Patient is able to utilize a wheelchair under his own power and is going to utilize a wheelchair in the home in order to improve his independence and ability to perform MR ADLs safely and reduce risk of fall with further injury. Objective - Exam Narrative Exam: MUSCULOSKELETAL SPECIALTY EXAM CONSTITUTIONAL: Well developed, well nourished, appropriately groomed RESPIRATORY: Clear to auscultation bilaterally, no increased work of breathing CARDIOVASCULAR: Regular Rate/ Rhythm, no swelling, edema or tenderness in BUE or BLE. All extremities warm. GI: + bowel sounds, soft, NTTP, nondistended. INTEGUMENTARY: Incision at right BKA site clean dry and intact and scattered blisters that have now ruptured and dried, some redness at the incision site but no significant drainage currently or foul odor, otherwise normal, no lesion, rash, masses or bruising noted in extremities. Ampushield in place MUSCULOSKELETAL: Right BKA, BUE and LLE normal without defect, crepitus, subluxation, effusion, arthritic changes or TTP. BUE 4+/5, good ROM, with normal tone. BLE 4+/5 good ROM, with normal tone NEURO: Sensation intact in all extremities. No tremor noted in 4 extremities. POSTURE and GAIT: Sitting posture good. PSYCH: Alert, oriented x3, affect appears normal. Insight appears intact. - Constitutional Vitals: Vital Signs - 12hr 06/04/21 08:20 Temperature 98.1 F Pulse Rate 87 Respiratory 18 Rate Blood Pressure 120/71 O2 Sat by Pulse 97 Oximetry - Allied health notes Allied health notes reviewed: nursing, PT, OT FIMS assessment as documented by PT/OT/ST: Locomotion- walk/wheelchair Ambulation Distance 23 - Labs CBC & Chem 7: 06/03/21 07:00 05/30/21 07:00 Labs: Laboratory Results - last 72 hr 06/01/21 06/01/21 06/02/21 15:46 20:24 07:30 WBC RBC Hgb Hct MCV MCH MCHC RDW Plt Count POC Glucose 114 H 201 H 153 H 06/02/21 06/02/21 06/02/21 11:40 15:43 19:58 WBC RBC Hgb Hct MCV MCH MCHC RDW Plt Count POC Glucose 219 H 155 H 169 H 06/03/21 06/03/21 06/03/21 07:00 07:44 11:59 WBC 6.8 RBC 4.09 Hgb 9.6 L Hct 29.2 L MCV 71 L MCH 24 L MCHC 33 RDW 16.0 H Plt Count 323 POC Glucose 159 H 117 H 06/03/21 06/03/21 06/04/21 16:27 21:50 08:20 WBC RBC Hgb Hct MCV MCH MCHC RDW Plt Count POC Glucose 116 H 205 H 141 H Assessment and Plan Right BKA: Dressing changed today with lateral drainage noted. Otherwise lucio were clean dry and intact. We will look to get the patient a clamshell stump protector as well as shellfish checker in the future once cleared for use. Have discussed with the patient the timeline and prognosis for BKA and obtaining a prosthesis. Will need to work with patient on improving mobility, transfers and fall recovery. We will look to discharge patient home with a wheelchair as he will be unable to perform MR ADLs from a safe position otherwise. Continue to monitor the surgical site for any signs of infection or dehiscence and contact surgeon if issues arise. No more fevers and tachycardia has improved Diabetes type 2: Insulin currently being adjusted to control the patient's diabetes. Continue carb controlled diet along with sliding scale insulin and we are starting long-acting insulin. Improving on current dose, continue to monitor and adjust as needed Hypertension: Patient did not have any antihypertensives listed at time of admission and was not on any at time of discharge. Blood pressure has been intermittently elevated with a high of 195/105 as recently as 2 days ago. Have started lisinopril and will increase as needed to titrate for effect. Goal blood pressure less than 140/80 while avoiding hypotension. Improving on current dose of lisinopril, continue to monitor and adjust, systolic blood pressure mainly in the 130s currently Postoperative anemia: Hemoglobin decreased from 11.3-7.7 since the surgery, microcytic in nature. Appears to be combined postsurgical and anemia of chronic disease. Replace nutrients and monitor for improvement. Improved to 9.6, continue to monitor Phantom sensation/pain: Discussed phantom pain with the patient and desensitization techniques. Start gabapentin qHS and escalate as needed. Continue modalities. Headache: Ibuprofen and monitor for improvement Nausea/vomiting: Seems to be related to possible acid reflux. Start PPI and monitor for improvement. Constipation: Have started scheduled as well as as needed medications, monitor for normal bowel movements and look to adjust as needed. Insomnia: Continue trazodone, sleep hygiene discussed, will monitor for effect and increase if needed. Postoperative pain: Patient now stating that the pain is not well controlled and he is experiencing sharp pain at the surgical site, denies any phantom pain cur rently. He is not receiving medication as frequently as he could but we have adjusted the medications and change to a [id number] oxycodone in order to help alleviate the pain and reduce issues with receiving too much Tylenol. Naloxone as needed order added. Look to decrease pain medications as able with the patient utilizing lowest possible dose at time of discharge. Hyperlipidemia: Continue statin, monitor for any adverse side effects. Peripheral vascular disease status post stents: Continue aspirin and Plavix and monitor for worsening of symptoms. Reconsult vascular surgeon if necessary. Hyponatremia: Improved ADL dysfunction: OT will work on improving ability to perform ADLs (including assistive devices) to increase independence and decrease caregiver burden and improve functional transfers and mobility training. Difficulty walking: PT will work on gait training and proper use of assistive devices and advance as appropriate to use of stairs and outside ambulation on uneven surfaces. Unsteadiness on feet: PT will work on improving static and dynamic sitting and standing balance as well as proper use of assistive devices to decrease risk of falls. Abnormality of gait: PT will work to improve safety and efficiency of gait through neuromotor training and gait training along with instruction on proper use of assistive devices. Muscle weakness: PT & OT will work on strengthening exercises to improve functional strength including mixture of closed and open kinetic chain exercises. Debility: PT & OT will work on improving overall functional status to improve participation with ADLs, mobility and social involvement. Fatigue: PT & OT will work on improving endurance through aerobic exercises and therapeutic activity while monitoring patients tolerance for activity and vital signs as needed. DVT ppx: Lovenox Pain: Continue physical modalities in therapy and pain medications as needed to achieve functional pain control. Sleep: Monitor and address as needed. Bowel: Monitor and address as needed. Appetite: Monitor and address as needed. Discharge planning: Pending therapy progress and care plan meeting. Will continue discussion with therapy team, SW, patient. Look to discharge with a wheelchair and bedside commode tomorrow. Restrictions/ Precautions: Falls, infection, stump protector on when out of bed WB status: FWB Functional Hx: ADLs: Independent Cognition: Independent Mobility: Cane occasional Barriers to Discharge: Decreased mobility and ability to perform self care, balance deficits, weakness Estimated Length of Stay: 1418 days Discharge Destination: Home to correction or possibly another home now Greater than 37 minutes was invested in patient care today with greater than 50% of that time spent counseling and coordinating care with the patient and family member as well as therapy and nursing. Details of counseling coordinating care are as above in the note. Discussed with the patient at length need to follow- up with surgeon, good glucose and blood pressure control, use of stump protector and need for short-term oral antibiotics as well as what to look for with the surgical site to prompt quick follow-up.
[2021-06-04 15:40] LABS: BUN/Creatinine Ratio 18; Blood Urea Nitrogen 18 mg/dL (9-20); Hemolysis Index 0
[2021-06-04] MEDS: cephALEXin 500 MG CAP PO SCH (21:43)
[2021-06-04] MEDS: oxyCODONE 5 MG TAB PO PRN (21:43)
[2021-06-04] MEDS: GABAPENTIN 300 MG CAP PO SCH (21:43)
[2021-06-04] MEDS: INSULIN GLARGINE 100 UNITS/ML SUB-Q SCH (22:30)
[2021-06-05] MEDS: PANTOPRAZOLE 20 MG TAB PO SCH (07:35)
[2021-06-05] MEDS: INSULIN LISPRO 100 UNIT/ML SUB-Q SCH ×2 (07:55→12:17)
[2021-06-05] MEDS: ENOXAPARIN 40 MG/0.4 ML INJ SUB-Q SCH (10:34)
[2021-06-05] MEDS: FOLIC ACID 1 MG TAB PO SCH (10:35)
[2021-06-05] MEDS: cephALEXin 500 MG CAP PO SCH (10:35)
[2021-06-05] MEDS: LISINOPRIL 10 MG TAB PO SCH (10:35)
[2021-06-05] MEDS: CLOPIDOGREL 75 MG TAB PO SCH (10:35)
[2021-06-05] MEDS: DOCUSATE SODIUM 100 MG CAP PO SCH (10:35)
[2021-06-05] MEDS: ASPIRIN EC 81 MG TAB PO SCH (10:35)
--- NOTE | 2021-06-05 13:19 | Discharge Summary ---
Providers - Providers Date of Admission: 05/24/21 16:59 Date of discharge: 06/05/21 Attending physician: ALTAGRACIA LEWIS III, MD 05/24/21 15:52 Occupational Therapy Evaluate and Treat [CONS] Routine Comment: Reason For Exam: ADL dysfunction Physical Therapy Evaluation and Treat [CONS] Routine Comment: Reason For Exam: Mobility Dysfunction 05/24/21 15:56 Consult to Case Management [CONS] Routine Services Needed at Discharge: Home Health Services Notified:: manager case 05/25/21 09:05 Consult to Dietitian/Nutrition [CONS] Routine Physician Instructions: Reason For Exam: Reason for Consult: Diet education 05/25/21 10:31 Consult to Phytochemistry Professor [CONS] Routine Reason For Exam: R BKA - need Ampushield please [facility] Reason for admission: Right BKA Condition: Good Hospital course: 60-year-old male with a history of a right diabetic foot ulcer which is previously under gone partial amputation. Patient developed continuing right foot pain and had a foul smelling wound. Work-up showed osteomyelitis on x-ray as well as MRI and antibiotics were started and surgery was consulted. Patient underwent debridement. Also underwent revascularization of the right lower extremity. 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 After the definitive treatment, infectious disease stated that the IV antibiotics could be stopped after 2 or 3 days postop. Wound cultures did grow out Proteus and beta-hemolytic strep group B. After the patient was medically stabilized they were transferred for further rehabilitation. All available medical records have been reviewed. Plan of care was discussed with patient. Right BKA: Continue dressing changes every other day. Monitor for wound dehiscence and or infection. Completed 7-day course of Rocephin with no further fevers noted. Have discussed with the patient the timeline and prognosis for BKA and obtaining a prosthesis. Will need to work with patient on improving mobility, transfers and fall recovery. We will look to discharge patient home with a wheelchair as he will be unable to perform MR ADLs from a safe position otherwise. Contacted surgery (Dr Villegas) for follow-up appointment. Will start patient on short course of Keflex due to redness around incision. Stump protector on when out of bed. Continue rehab with home health. Patient will need to follow-up with [facility] to obtain helper marble finisher and be fitted for a test socket once cleared by surgery. Hypertension: Blood pressure within reasonable range on current medication, continue to monitor and adjust medications as needed for normotension while avoiding hypotension. Postoperative anemia: Based on available labs this is likely a mixed anemia with a component of anemia of chronic disease and exacerbated by acute blood loss. Replace vitamin B12, folate and iron while on the rehab unit and saw improvement. Continue to monitor and transfuse if needed. 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 Continue to monitor Headache: Has been intermittent since Thursday, patient states he gets these at home and typically takes ibuprofen. Have started ibuprofen instead of Tylenol. Improved Nausea/vomiting: Episode of nausea and vomiting with was preceded by what sounds like acid reflux with burning in the esophageal area. Started Protonix and saw improvement. No vomiting reported today. Would recommend a short dose of Protonix with possible further work-up in coordination with PCP for a GI consult if warranted Constipation: continue to monitor and continue medications for regularity Postoperative pain: Pain medications seem to be working fairly well at current dosing. Discussed pain medications and functional pain control as well as the expectation that pain would be completely resolved. Improved Peripheral vascular disease: No signs of cool limbs or decreased blood flow. Continue medications continue to monitor for any issues, reconsult vascular if needed ADL and mobility dysfunction: Patient made good progress with physical therapy and Occupational Therapy. Patient is modified independent with ADLs as well as mobility and transfers. Due to the patient's amputation, he will need to be dis charged at the wheelchair level in order to be able to perform MR ADLs safely. Disposition: HOME HEALTH CARE SERVICE Final Discharge Diagnosis (Prints w/discharge instructions): Right BKA, hypertension, diabetes, PVD Time spent for discharge: >36 mins Core Measure Documentation - Palliative Care Palliative Care/ Comfort Measures: Not Applicable - Core Measures Any of the following diagnoses?: none Exam - Physical Exam Narrative exam: MUSCULOSKELETAL SPECIALTY EXAM CONSTITUTIONAL: Well developed, well nourished, appropriately groomed RESPIRATORY: Clear to auscultation bilaterally, no increased work of breathing CARDIOVASCULAR: Regular Rate/ Rhythm, no swelling, edema or tenderness in BUE or BLE. All extremities warm. GI: + bowel sounds, soft, NTTP, nondistended. INTEGUMENTARY: Incision at right BKA site clean dry and intact and scattered blisters that have now ruptured and dried, some redness at the incision site but no significant drainage currently or foul odor, otherwise normal, no lesion, rash, masses or bruising noted in extremities. Ampushield in place MUSCULOSKELETAL: Right BKA, BUE and LLE normal without defect, crepitus, subluxation, effusion, arthritic changes or TTP. BUE 4+/5, good ROM, with normal tone. BLE 4+/5 good ROM, with normal tone NEURO: Sensation intact in all extremities. No tremor noted in 4 extremities. POSTURE and GAIT: Sitting posture good. PSYCH: Alert, oriented x3, affect appears normal. Insight appears intact. - Constitutional Vitals: Temp Pulse Resp BP Pulse Ox 98.8 F 84 20 109/69 100 06/05/21 12:17 06/05/21 12:17 06/05/21 12:17 06/05/21 12:17 06/05/21 12:17 Plan Activity: advance as tolerated, fall precautions Weight Bearing Status: Non-Weight Bearing (Right lower extremity) Diet: diabetic (Heart healthy diabetic diet) Wound: change dressing (Every other day and as needed with a nonadherent bandage followed by Kerlix and Albert wrap) Special Instructions: record daily BP diary, record blood sugar diary, physical therapy, occupational therapy, home health RN Durable Medical Equipment Needed Upon Discharge: Wheelchair, Bedside Commode Care Plan Goals: Patient will need to follow-up with primary care physician, surgeon, and [facility]. Dressing change every other day and as needed with a nonadherent dressing followed by Kerlix and Albert wrap. Patient should wear Ampu-shield anytime he is up and out of bed. Okay to shower surgical site but do not soak in a tub until cleared by surgeon. Patient should obtain quick medical follow-up via return to surgeon or ER for any signs of wound breakdown, fevers greater than 101, excessive bleeding from the surgical site, opening of the surgical site or other signs of infection. Follow up with: VAUGHN MILTON MD [Primary Care Provider] - 7 Days GAEL VILLEGAS MD [Staff Physician] - 7 Days Prescriptions: traZODone [Desyrel] 50 mg PO QHS #30 tablet Gabapentin 300 mg PO QHS #30 capsule Insulin Glargine [Lantus VIAL] 12 units SUB-Q QHS 30 Days #1 bottle AtorvaSTATin [Lipitor] 40 mg PO QHS #30 tablet Docusate Sodium [Colace CAP] 100 mg PO BID #30 capsule Folic Acid [Folvite] 1 mg PO QDAY #30 tablet Aspirin EC [Halfprin EC] 81 mg PO QDAY #30 tablet Lispro Insulin [HumaLOG] See Protocol SUB-Q ACHS #1 bottle cephALEXin [Keflex] 500 mg PO Q12HR #14 capsule Clopidogrel [Plavix] 75 mg PO QDAY #30 tablet Pantoprazole [Protonix TAB] 20 mg PO QDAC #30 tablet. oxyCODONE [roxiCODONE] 5 mg PO BID PRN #20 tablet PRN Reason: Pain , Severe (7-10) Sennosides Tab [Senokot] 8.6 mg PO Q12H PRN #30 tablet PRN Reason: Laxative Effect lisinopriL [Zestril TAB] 10 mg PO QDAY #30 tablet
[2021-06-05 17:11] VITALS: BP 114/70
== END 2021-06-05 18:09 | disposition home health service (06) | DRG 300 ==
LOC: UNDOADMIN 14:56 → 4A 14:56
PROVIDERS: ADMIT Physical Medicine & Rehabilitation; ATTEND Physical Medicine & Rehabilitation
DX: E11.51 Type 2 diabetes mellitus with diabetic peripheral angiopathy without gangrene (principal); D62 Acute posthemorrhagic anemia; E87.1 Hypo-osmolality and hyponatremia; R53.81 Other malaise; Z89.431 Acquired absence of right foot; G54.6 Phantom limb syndrome with pain; I10 Essential (primary) hypertension; E78.5 Hyperlipidemia, unspecified; Z82.49 Family history of ischemic heart disease and other diseases of the circulatory system; Z79.4 Long term (current) use of insulin; Z79.82 Long term (current) use of aspirin; K59.00 Constipation, unspecified; G89.18 Other acute postprocedural pain; G47.00 Insomnia, unspecified; R26.81 Unsteadiness on feet
CPT/HCPCS: 36415; 80048; 80053; 82607; 82728; 82747; 82962; 83550; 85025; 85027; G0378; J3490; Q9967; J0696; J1650; J1815; J7030; Q0162

== ENCOUNTER 2022-03-31 23:39 | Emergency (ER) | payer MEDICARE ==
[2022-04-01] MEDS ORDERED: oxyCODONE /ACETAMINOPHEN 5-325MG TAB PO ONE (07:29)
[2022-04-01] MEDS ORDERED: KETOROLAC 10 MG TAB PO ONE (07:29)
[2022-04-01] MEDS ORDERED: SULFAMETHOXAZOLE/TRIMETHOPRIM 800/160MG DS TAB PO ONE (07:35)
[2022-04-01] MEDS ORDERED: cephALEXin 500 MG CAP PO ONE (07:37)
--- NOTE | 2022-04-01 08:29 | XRay Report ---
LEFT FOOT 3 VIEWS INDICATION: wound, r/o osteo. COMPARISON: None. IMPRESSION: There is mild diffuse soft tissue swelling/edema. Moderate vascular calcifications are e vident suggesting peripheral vascular disease or diabetes. No obvious focal ulceration is detected on x-ray. No fracture or bony destruction to suggest osteomyelitis. There is a mild hallux valgus defor mity with moderate degenerative changes at the first metatarsophalangeal joint. The remaining joint spaces are unremarkable. Signer Name: Riley Valencia Jr, MD Signed: 04/01/2022 8:25 AM Workstation Name: [id number]
--- NOTE | 2022-04-01 09:22 | Emergency Department Report ---
ED Extremity Problem HPI - General Chief complaint: Extremity Injury, Lower Stated complaint: SORE ON BOTTOM OF LEFT FOOT Time Seen by Provider: 04/01/22 07:09 Source: patient, EMS Mode of arrival: Stretcher Limitations: No Limitations - History of Present Illness Initial comments: 61-year-old black male with a past medical history of diabetes presents to the emergency department for evaluation of few day history of worsening sore to his left great toe. He states over the past few days he has picked the skin of a sore and has had some drainage from area. He states that yesterday's toe started to have some pain. He denies fever. MD Complaint: extremity pain, extremity swelling -: Gradual, days(s) (4-5) Location: left, lower extremity (Great toe) History of Same: No -: No myalgia, No arthralgia, No fever, No associated dyspnea, No associated chest pain Severity scale (0 -10): 8 Quality: aching Consistency: constant Worsens with: weight bearing Associated Symptoms: denies: chest pain, shortness of breath, fever, myalgias, arthralgias, rash - Related Data Previous Rx's Medication Instructions Recorded Last Taken Type Aspirin EC [Halfprin EC] 81 mg PO QDAY #30 tablet 06/05/21 Unknown Rx AtorvaSTATin [Lipitor] 40 mg PO QHS #30 tablet 06/05/21 Unknown Rx Clopidogrel [Plavix] 75 mg PO QDAY #30 tablet 06/05/21 Unknown Rx Docusate Sodium [Colace CAP] 100 mg PO BID #30 capsule 06/05/21 Unknown Rx Folic Acid [Folvite] 1 mg PO QDAY #30 tablet 06/05/21 Unknown Rx Gabapentin 300 mg PO QHS #30 capsule 06/05/21 Unknown Rx Insulin Glargine [Lantus VIAL] 12 units SUB-Q QHS 30 Days #1 06/05/21 Unknown Rx bottle Lispro Insulin [HumaLOG] See Protocol SUB-Q ACHS #1 bottle 06/05/21 Unknown Rx Pantoprazole [Protonix TAB] 20 mg PO QDAC #30 tablet. 06/05/21 Unknown Rx Sennosides Tab [Senokot] 8.6 mg PO Q12H PRN #30 tablet 06/05/21 Unknown Rx cephALEXin [Keflex] 500 mg PO Q12HR #14 capsule 06/05/21 Unknown Rx lisinopriL [Zestril TAB] 10 mg PO QDAY #30 tablet 06/05/21 Unknown Rx oxyCODONE [roxiCODONE] 5 mg PO BID PRN #20 tablet 06/05/21 Unknown Rx traZODone [Desyrel] 50 mg PO QHS #30 tablet 06/05/21 Unknown Rx Acetaminophen/Codeine [Tylenol 1 tab PO Q6H PRN #12 tab 04/01/22 Unknown Rx /Codeine # 3 tab] Ketorolac [Toradol] 10 mg PO Q6H PRN #12 tab 04/01/22 Unknown Rx Sulfamethoxazole/Trimethoprim 1 each PO BID 7 Days #14 tab 04/01/22 Unknown Rx [Bactrim DS TAB] cephALEXin [Keflex] 500 mg PO Q12HR 7 Days #14 cap 04/01/22 Unknown Rx Allergies Allergy/AdvReac Type Severity Reaction Status Date / Time No Known Allergies Allergy Verified 05/30/21 07:24 ED Review of Systems ROS: Stated complaint: SORE ON BOTTOM OF LEFT FOOT Other details as noted in HPI Comment: All other systems reviewed and negative Constitutional: denies: chills, fever ENT: denies: congestion Respiratory: denies: shortness of breath Cardiovascular: denies: chest pain, palpitations Gastrointestinal: denies: abdominal pain, nausea, vomiting Musculoskeletal: denies: back pain Skin: denies: rash, lesions Neurological: denies: headache, weakness ED Past Medical Hx - Past Medical History Hx Hypertension: Yes (Hyperlipidemia) Hx Heart Attack/AMI: No Hx Congestive Heart Failure: No Hx Diabetes: Yes Hx Deep Vein Thrombosis: (unknown) Hx Liver Disease: No Hx Renal Disease: No Additional medical history: Back pain with back surgery - Surgical History Hx Pacemaker: No Hx Internal Defibrillator: No Additional Surgical History: Back, R great toe amputation - Social History Smoking Status: Never Smoker - Medications Home Medications: Home Medications Medication Instructions Recorded Confirmed Last Taken Type Aspirin EC [Halfprin EC] 81 mg PO QDAY #30 tablet 06/05/21 Unknown Rx AtorvaSTATin [Lipitor] 40 mg PO QHS #30 tablet 06/05/21 Unknown Rx Clopidogrel [Plavix] 75 mg PO QDAY #30 tablet 06/05/21 Unknown Rx Docusate Sodium [Colace CAP] 100 mg PO BID #30 capsule 06/05/21 Unknown Rx Folic Acid [Folvite] 1 mg PO QDAY #30 tablet 06/05/21 Unknown Rx Gabapentin 300 mg PO QHS #30 capsule 06/05/21 Unknown Rx Insulin Glargine [Lantus VIAL] 12 units SUB-Q QHS 30 Days #1 06/05/21 Unknown Rx bottle Lispro Insulin [HumaLOG] See Protocol SUB-Q ACHS #1 bottle 06/05/21 Unknown Rx Pantoprazole [Protonix TAB] 20 mg PO QDAC #30 tablet. 06/05/21 Unknown Rx Sennosides Tab [Senokot] 8.6 mg PO Q12H PRN #30 tablet 06/05/21 Unknown Rx cephALEXin [Keflex] 500 mg PO Q12HR #14 capsule 06/05/21 Unknown Rx lisinopriL [Zestril TAB] 10 mg PO QDAY #30 tablet 06/05/21 Unknown Rx oxyCODONE [roxiCODONE] 5 mg PO BID PRN #20 tablet 06/05/21 Unknown Rx traZODone [Desyrel] 50 mg PO QHS #30 tablet 06/05/21 Unknown Rx Acetaminophen/Codeine [Tylenol 1 tab PO Q6H PRN #12 tab 04/01/22 Unknown Rx /Codeine # 3 tab] Ketorolac [Toradol] 10 mg PO Q6H PRN #12 tab 04/01/22 Unknown Rx Sulfamethoxazole/Trimethoprim 1 each PO BID 7 Days #14 tab 04/01/22 Unknown Rx [Bactrim DS TAB] cephALEXin [Keflex] 500 mg PO Q12HR 7 Days #14 cap 04/01/22 Unknown Rx ED Physical Exam - General Limitations: No Limitations General appearance: alert, in no apparent distress - Head Head exam: Present: atraumatic, normocephalic - Eye Eye exam: Present: normal appearance. Absent: conjunctival injection, periorbital swelling, periorbital tenderness - Neck Neck exam: Present: normal inspection. Absent: tenderness, lymphadenopathy - Respiratory Respiratory exam: Absent: respiratory distress - Cardiovascular Cardiovascular Exam: Present: regular rate - GI/Abdominal GI/Abdominal exam: Present: soft. Absent: distended, tenderness - Expanded Lower Extremity Exam Left Foot/Toe exam: Present: full ROM, tenderness, swelling, abrasion, erythema. Absent: laceration, ecchymosis, deformity, crepidus, dislocation, amputation, puncture wound, foreign body, calcaneal tenderness, tenderness at base of 5th metatarsal, nail avulsion, subungual hematoma Neuro vascular tendon exam: Present: no vascular compromise. Absent: pulse deficit, abnormal cap refill, extremity cold to touch, pallor Gait: Positive: observed and normal 1 - Wound noted area with erythema and edema noted to the rest of the area. Small amount of purulent drainage noted. Area warm to touch. - Back Exam Back exam: Present: normal inspection - Neurological Exam Neurological exam: Present: alert, oriented X3 - Psychiatric Psychiatric exam: Present: normal affect, normal mood - Skin Skin exam: Present: warm, dry, normal color ED Course Vital Signs 03/31/22 04/01/22 23:43 10:07 Temperature 98 F 98.6 F Pulse Rate 100 H 89 Respiratory 16 20 Rate Blood Pressure 153/94 168/92 [Right] O2 Sat by Pulse 99 98 Oximetry ED Medical Decision Making - Radiology Data Radiology results: report reviewed, image reviewed Left foot x-ray: IMPRESSION: There is mild diffuse soft tissue swelling/edema. Moderate vascular calcifications are evident suggesting peripheral vascular disease or diabetes. No obvious focal ulceration is detected on x-ray. No fracture or bony destruction to suggest osteomyelitis. There is a mild hallux valgus deformity with moderate degenerative changes at the first metatarsophalangeal joint. The remaining joint spaces are unremarkable. - Medical Decision Making 61-year-old black male with a past medical history of diabetes presents to the emergency department for evaluation of few day history of worsening sore to his left great toe. He states over the past few days he has picked the skin of a sore and has had some drainage from area. He states that yesterday's toe started to have some pain. He denies fever. Left foot x-ray without any acute abnormalities noted. Patient be discharged home with 7-day course of Keflex and Bactrim along with Toradol and Tylenol 3 to use as needed for pain. He is advised to monitor blood glucose to keep it as close to normal as possible to improve healing and follow-up with his primary care provider or podiatry for further evaluation and management or if worsening symptoms. He is advised to return to the emergency department as needed. Verbalizes understanding of and agreement with plan of care. Critical care attestation.: If time is entered above; I have spent that time in minutes in the direct care of this critically ill patient, excluding procedure time. ED Disposition Clinical Impression: Toe infection Disposition: HOME / SELF CARE / HOMELESS Is pt being admited?: No Does the pt Need Aspirin: No Condition: Stable Instructions: Wound Infection, [id number], Cellulitis, Adult, [id number] Additional Instructions: Take medications as prescribed. Make sure that you take your prescribed diabetes medications in order to control your blood sugar to improve healing of toe. Follow-up with your primary care provider or construction driller for further evaluation and management. Return to the emergency department as needed Prescriptions: Sulfamethoxazole/Trimethoprim [Bactrim DS TAB] 1 each PO BID 7 Days #14 tab cephALEXin [Keflex] 500 mg PO Q12HR 7 Days #14 cap Ketorolac [Toradol] 10 mg PO Q6H PRN #12 tab PRN Reason: Pain Acetaminophen/Codeine [Tylenol /Codeine # 3 tab] 1 tab PO Q6H PRN #12 tab PRN Reason: Pain , Severe (7-10) Referrals: ALYX ZEPEDA MD [Primary Care Provider] - 3-5 Days MARS GODINEZ MD [Staff Physician] - 3-5 Days SHAHZAD CARRILLO DPM [Staff Physician] - 3-5 Days Time of Disposition: 09:22
[2022-04-01 10:08] VITALS: BP 168/92
== END 2022-04-01 10:08 | disposition home or self-care (01) ==
LOC: ED 23:39
DX: L08.9 Local infection of the skin and subcutaneous tissue, unspecified (principal); I10 Essential (primary) hypertension; E11.9 Type 2 diabetes mellitus without complications
CPT/HCPCS: 99283

== ENCOUNTER 2022-04-08 17:07 | Emergency (ER) | payer MEDICARE ==
[2022-04-08 18:11] VITALS: BP 150/76
--- NOTE | 2022-04-09 00:51 | Emergency Department Report ---
- General Chief Complaint: Laceration/Recheck/Suture Stated Complaint: LFT FOOT PAIN Time Seen by Provider: 04/09/22 00:24 Source: patient Mode of arrival: Ambulatory Limitations: No Limitations - History of Present Illness Initial Comments: 61 Y/O MALE WITH DIABETES AND PARTIAL AMPUATION OF RIGHT LOWER EXTREMITY PRESENTS TO ED C/O CONTINUED REDNESS AND DISHARGE TO LEFT HALLUX AND SEEKS FURTHER TREATMENT. HE HAS NOT YET FOLLOWED UP WITH HIS PCP OR WOUND THERAPY. HAS APPOINTMENT LATER IN THE WEEK. DENIES FEVER OR CHILLS. CONTINUED TINGLING WITH BURST OF PAIN. STARTED ON ABX AND XRAY SHOWED NO OSTEOMYLEITIS -: Gradual Place: home Context: accidental Associated Symptoms: loss of feeling/numbness. denies: unable to move injured part, nausea/vomiting, fever - Related Data Previous Rx's Medication Instructions Recorded Last Taken Type Aspirin EC [Halfprin EC] 81 mg PO QDAY #30 tablet 06/05/21 Unknown Rx AtorvaSTATin [Lipitor] 40 mg PO QHS #30 tablet 06/05/21 Unknown Rx Clopidogrel [Plavix] 75 mg PO QDAY #30 tablet 06/05/21 Unknown Rx Docusate Sodium [Colace CAP] 100 mg PO BID #30 capsule 06/05/21 Unknown Rx Folic Acid [Folvite] 1 mg PO QDAY #30 tablet 06/05/21 Unknown Rx Gabapentin 300 mg PO QHS #30 capsule 06/05/21 Unknown Rx Insulin Glargine [Lantus VIAL] 12 units SUB-Q QHS 30 Days #1 06/05/21 Unknown Rx bottle Lispro Insulin [HumaLOG] See Protocol SUB-Q ACHS #1 bottle 06/05/21 Unknown Rx Pantoprazole [Protonix TAB] 20 mg PO QDAC #30 tablet. 06/05/21 Unknown Rx Sennosides Tab [Senokot] 8.6 mg PO Q12H PRN #30 tablet 06/05/21 Unknown Rx cephALEXin [Keflex] 500 mg PO Q12HR #14 capsule 06/05/21 Unknown Rx lisinopriL [Zestril TAB] 10 mg PO QDAY #30 tablet 06/05/21 Unknown Rx oxyCODONE [roxiCODONE] 5 mg PO BID PRN #20 tablet 06/05/21 Unknown Rx traZODone [Desyrel] 50 mg PO QHS #30 tablet 06/05/21 Unknown Rx Acetaminophen/Codeine [Tylenol 1 tab PO Q6H PRN #12 tab 04/01/22 Unknown Rx /Codeine # 3 tab] Ketorolac [Toradol] 10 mg PO Q6H PRN #12 tab 04/01/22 Unknown Rx Sulfamethoxazole/Trimethoprim 1 each PO BID 7 Days #14 tab 04/01/22 Unknown Rx [Bactrim DS TAB] cephALEXin [Keflex] 500 mg PO Q12HR 7 Days #14 cap 04/01/22 Unknown Rx Clindamycin [Clindamycin CAP] 150 mg PO Q8HR #21 capsule 04/09/22 Unknown Rx Allergies Allergy/AdvReac Type Severity Reaction Status Date / Time No Known Allergies Allergy Verified 05/30/21 07:24 ED Review of Systems ROS: Stated complaint: LFT FOOT PAIN Other details as noted in HPI Comment: All other systems reviewed and negative ED Past Medical Hx - Past Medical History Hx Hypertension: Yes (Hyperlipidemia) Hx Heart Attack/AMI: No Hx Congestive Heart Failure: No Hx Diabetes: Yes Hx Deep Vein Thrombosis: (unknown) Hx Liver Disease: No Hx Renal Disease: No Additional medical history: Back pain with back surgery - Surgical History Hx Pacemaker: No Hx Internal Defibrillator: No Additional Surgical History: Back, R great toe amputation - Social History Smoking Status: Never Smoker - Medications Home Medications: Home Medications Medication Instructions Recorded Confirmed Last Taken Type Aspirin EC [Halfprin EC] 81 mg PO QDAY #30 tablet 06/05/21 Unknown Rx AtorvaSTATin [Lipitor] 40 mg PO QHS #30 tablet 06/05/21 Unknown Rx Clopidogrel [Plavix] 75 mg PO QDAY #30 tablet 06/05/21 Unknown Rx Docusate Sodium [Colace CAP] 100 mg PO BID #30 capsule 06/05/21 Unknown Rx Folic Acid [Folvite] 1 mg PO QDAY #30 tablet 06/05/21 Unknown Rx Gabapentin 300 mg PO QHS #30 capsule 06/05/21 Unknown Rx Insulin Glargine [Lantus VIAL] 12 units SUB-Q QHS 30 Days #1 06/05/21 Unknown Rx bottle Lispro Insulin [HumaLOG] See Protocol SUB-Q ACHS #1 bottle 06/05/21 Unknown Rx Pantoprazole [Protonix TAB] 20 mg PO QDAC #30 tablet 06/05/21 Unknown Rx Sennosides Tab [Senokot] 8.6 mg PO Q12H PRN #30 tablet 06/05/21 Unknown Rx cephALEXin [Keflex] 500 mg PO Q12HR #14 capsule 06/05/21 Unknown Rx lisinopriL [Zestril TAB] 10 mg PO QDAY #30 tablet 06/05/21 Unknown Rx oxyCODONE [roxiCODONE] 5 mg PO BID PRN #20 tablet 06/05/21 Unknown Rx traZODone [Desyrel] 50 mg PO QHS #30 tablet 06/05/21 Unknown Rx Acetaminophen/Codeine [Tylenol 1 tab PO Q6H PRN #12 tab 04/01/22 Unknown Rx /Codeine # 3 tab] Ketorolac [Toradol] 10 mg PO Q6H PRN #12 tab 04/01/22 Unknown Rx Sulfamethoxazole/Trimethoprim 1 each PO BID 7 Days #14 tab 04/01/22 Unknown Rx [Bactrim DS TAB] cephALEXin [Keflex] 500 mg PO Q12HR 7 Days #14 cap 04/01/22 Unknown Rx Clindamycin [Clindamycin CAP] 150 mg PO Q8HR #21 capsule 04/09/22 Unknown Rx ED Physical Exam - General Limitations: No Limitations General appearance: alert, in no apparent distress - Head Head exam: Present: atraumatic, normocephalic - Eye Eye exam: Present: normal appearance, PERRL, EOMI Pupils: Present: normal accommodation - ENT ENT exam: Present: normal exam, mucous membranes moist, TM's normal bilaterally - Neck Neck exam: Present: normal inspection, full ROM - Respiratory Respiratory exam: Present: normal lung sounds bilaterally. Absent: respiratory distress, wheezes, rales - Cardiovascular Cardiovascular Exam: Present: regular rate, normal rhythm. Absent: bradycardia, tachycardia, systolic murmur, diastolic murmur, rubs, gallop - GI/Abdominal GI/Abdominal exam: Present: soft, normal bowel sounds - Rectal Rectal exam: Present: deferred - Extremities Exam Extremities exam: Present: tenderness, normal capillary refill, pedal edema, joint swelling, other (HALLUX IS RED WITH EXUDATE TO WOUND,. .EARLY ULCERATION STARTING (PT REPORTS NO PROGRESSION). NO LYMPHANGITIS. PULSE PRESENT. NON- PITTING EDEMA. GOOD RANGE OF MOTION. ). Absent: calf tenderness - Back Exam Back exam: Present: normal inspection. Absent: CVA tenderness (R), CVA tenderness (L) - Neurological Exam Neurological exam: Present: alert, oriented X3, CN II-XII intact - Psychiatric Psychiatric exam: Present: normal affect, normal mood. Absent: anxious, flat affect - Skin Skin exam: Present: warm, dry, intact, normal color. Absent: rash ED Course Vital Signs 04/08/22 04/09/22 18:06 00:56 Temperature 98.7 F Pulse Rate 89 80 Respiratory 16 16 Rate Blood Pressure 150/76 [Right] O2 Sat by Pulse 100 96 Oximetry ED Medical Decision Making - Medical Decision Making MR. NDIAYE IS NO STRANGER TO LOWER EXTREMITY INFECTIONS AND ACKNOWLEDGES HE NEEDS TO BE MORE COMPLIANT AND FOLLOW UP WITH HIS SPECIALIST. I REITERATED THE NEED TO SEE PODIATRY AND HIS DIABETIC DOCTOR [facility] Critical care attestation.: If time is entered above; I have spent that time in minutes in the direct care of this critically ill patient, excluding procedure time. ED Disposition Clinical Impression: Chronic foot ulcer, Toe infection Disposition: 01 HOME / SELF CARE / HOMELESS Is pt being admited?: No Does the pt Need Aspirin: No Condition: Stable Instructions: Negative Pressure Wound Therapy Home Guide, Cellulitis, Adult, Mechanical Wound Debridement, Care After, Wound Infection, Wound Care, Adult Prescriptions: Clindamycin [Clindamycin CAP] 150 mg PO Q8HR #21 capsule Referrals: [facility] - [facility]
== END 2022-04-09 00:56 | disposition home or self-care (01) ==
LOC: ED 17:07
DX: L98.499 Non-pressure chronic ulcer of skin of other sites with unspecified severity (principal); I10 Essential (primary) hypertension; E11.9 Type 2 diabetes mellitus without complications
CPT/HCPCS: 99282